=== PATIENT | male | born 1965 | race Caucasian/White ===

== ENCOUNTER → 2017-03-07 | Outpatient (CLI) | payer MEDICARE, OTHER ==
[~2017-03-07] MED LIST: AMITRIPTYLINE25 MG PO; ANTIBIOTIC O500 U/GM TP; ASPIRIN325 MG PO; BUPROPION HCL150 M2 PO; CLONAZEPAM0.5 MG PO; DAYPRO600 M1 PO; DOC-Q-LACE100 MG PO; FLEXERIL5 MG PO; FOLIC ACID1 MG PO; KEFLEX500 MG PO; LIPITOR20 MG PO; LYRICA300 MG PO; MEDROL DOSEPAK4 MG PO; MELOXICAM7.5 MG PO; METFORMIN HCL1000 MG PO; MOTRIN800 MG PO; NORFLEX100 MG PO; PANTOPRAZOLE SO40 MG PO; QUETIAPINE FUMA25 M2 PO; TESTIM1%; Tobradex 0.3-0.15 ML OPH; VICODIN; VICODIN 5/500 505 MG PO; VICODIN ES 7501 TAB PO; VITAMIN D3; [UNRECOGNIZED DRUG - OTHER] PO; [UNRECOGNIZED DRUG - REMARK]
[2017-03-07 10:36] LABS: EST GLOM FILT AFRICAN AMERICAN > 60 ml/min
== END | disposition home or self-care (01) ==
LOC: MRI 09:40
PROVIDERS: Radiology Diagnostic Radiology
DX: M51.16 Intervertebral disc disorders with radiculopathy, lumbar region (principal); M51.26 Other intervertebral disc displacement, lumbar region; M48.06 Spinal stenosis, lumbar region; M48.54XA Collapsed vertebra, not elsewhere classified, thoracic region, initial encounter for fracture

== ENCOUNTER → 2017-03-20 | Outpatient (CLI) | payer MEDICARE, OTHER | END | disposition home or self-care (01) | LOC: MRI 01:11 | DX: M48.02 Spinal stenosis, cervical region (principal); M50.31 Other cervical disc degeneration, high cervical region; G95.89 Other specified diseases of spinal cord; M51.44 Schmorl's nodes, thoracic region; M12.88 Other specific arthropathies, not elsewhere classified, other specified site; M25.78 Osteophyte, vertebrae; R60.9 Edema, unspecified; G95.19 Other vascular myelopathies; R20.0 Anesthesia of skin; Z98.1 Arthrodesis status ==

== ENCOUNTER → 2017-04-04 | Outpatient (CLI) | payer MEDICARE, OTHER ==
--- NOTE | ~2017-04-04 | WRIGHTHP ---
[place], [place] PATIENT HISTORY AND PHYSICAL EXAM NAME: SHI CAMPOS [facility] #: [id number] UNIT #: [id number] ROOM: DOCTOR: VINCENZO HernadezWILLIE BIRTHDATE: [birth year] DOS: 04/04/2017 This is a new patient evaluation. CHIEF COMPLAINT: A blistered area of the right great toe. HISTORY OF PRESENT ILLNESS: The patient is a 51-year-old diabetic who comes in for a wound of his right great toe that he has for approximately 3 days now. He said it initially started out as a blister and a lot of it broke open on its own after wearing new shoes. He said he got new diabetic shoes and the ulcer was noted right after wearing those. He is just using a dry drainage. He is not complaining of any purulence or any fevers or chills or any odor with the wound. PAST MEDICAL HISTORY: Significant for sleep apnea, history of hypertension, history of type 2 diabetes. He has not checked his sugars for some time now as he ran out of test strips. He has bilateral hip replacements, chronic back pain, has had back surgery. He has a history of depression and has a history of an abnormal chest x-ray from 1997. He wears a CPAP machine. PAST SURGICAL HISTORY: Neck surgery and back surgery and he had infection from ____ injections. FAMILY HISTORY: Significant for diabetes, hypertension and heart disease. SOCIAL HISTORY: He is a current everyday smoker, a quarter of a pack per day. Rarely drinks alcohol. He is , drinks coffee on a daily basis. No drug use is noted. ALLERGIES: TRAMADOL AND SULFA. MEDICATIONS: As follows: The recent medication list is going to be obtained from the pharmacy, but his last. medications that we have charted are back from 2014 and he was on Curly aspirin 325 daily, clonazepam 0.5 daily, Lyrica 300 daily, metformin 1000 daily, Lipitor 20 daily, quetiapine 25 p.o. daily, methenamine 1 gram p.o. daily, folic acid 1 mg p.o. daily, Colace 100 daily, Wellbutrin-XL 150 daily, meloxicam 7.5 daily, pantoprazole 40 daily, amitriptyline 25 daily and vitamin D3 5000 units daily. Once again these are from 2015, but updated list is going to be obtained. REVIEW OF SYSTEMS: He has no fevers, chills, chest pains, nausea, vomiting, abdominal pains or diarrhea. He denies any urinary complaints. He does state that he has had some unintentional weight loss, approximately 5-10 pounds, he is not sure. He has changed his diet in any way that he is aware of. [place], [place] PATIENT HISTORY AND PHYSICAL EX[id number] UN[facility] #: [id number] ROOM: DOCTOR: WILLIE LYOA M.D. BIRTHDATE: [birth year] PHYSICAL EXAMINATION: VITAL SIGNS: He is afebrile, pulse is 74, respirations 18, blood pressure is 132/90. GENERAL: This is a male who appears slightly older than his stated age, somewhat flat affect, in no acute distress, pleasant and cooperative.. HEENT: Oropharynx is clear. Extraocular movements are intact. Sclerae are anicteric. NECK: There is no JVD. LUNGS: Clear. CARDIOVASCULAR: S1, S2. Regular rate and rhythm. ABDOMEN: Soft and nontender. EXTREMITIES: He has no edema. He has positive pedal pulses bilaterally. Good capillary refill. He has poor hair growth noted; however. He has absent peripheral sensation on monofilament testing. His PHIL was 1.16 on the left, 1.17 on the right. He has a wound on his right great toe that is essentially denuded skin. There is a lot of nonviable epidermis hanging there on the edges of the periphery of the wound as well and it is currently measuring 5.5 x 6 x 0.1. The base of the wound looks clean; however, there is a fair amount of devitalized epidermis hanging on the periphery of the wound. This was debrided selectively to remove just nonviable tissue, approximately 40% of the wound was debrided. Forceps and scissors were used to cut away the devitalized epidermis. There was no bleeding. Cetacaine spray was used for topical anesthesia. Timeout was conducted prior to start of the procedure. Post-debridement measurements are follow, 5.5 x 6.5 x 0.1. He has no recent blood work in the computer. ASSESSMENT AND PLAN: A blistered area of the right great toe in a diabetic patient that is secondary to ill-fitting shoes. It is fairly acute wound. At this point, we will go ahead and use ____, keep it clean and Versatile as a contact laver, have them changed on a daily basis. He is to follow up with us in 1 week. I would encourage him to have a new pair of shoes to be made if possible and to be evaluated by an slat basket maker helper, so we will go ahead and schedule the slat basket maker helper to come and see him while he is here. He says he has trouble getting to their place and it would be easier for him if they come here during his next wound care visit, so we will do that. He does have a foot drop and brace for his right lower extremity. The only post-shoes that we have available were either small or large and they do not appear that they will fit him very well, so he is going to be going back to his old shoes instead of the new diabetic shoes that he has. We will have him follow up in 1 week. I did state that we should try to get blood work if possible, blood work has been ordered and I would like to check his hemoglobin A1c and see what his baseline is. In addition, he has run out of his strips. He does not know what his sugar it. He has had complaints of some weight loss. This definitely needs to be addressed per primary care physician. I did explain to him that unintentional weight loss needs to be addressed by the primary care and that he should make an appointment to see him. Follow up in wound care in one week. [place], [place] PATIENT HISTORY AND PHYSICAL EXAM [facility]: [facility]AMPOS [facility] [id number] UNIT #: [id number] ROOM: DOCTOR: WILLIE LOYA M.D. BIRTHDATE: [birth year] WILLIE LOYA MD CM:HISPHYS:PATIENT HISTORY AND PHYSICAL EXAMINATION [phone] WILLIE LOYA M.D. 04/04/17 133 interface
--- NOTE | ~2017-04-04 | WRIGHTHP ---
[place], [place] PATIENT HISTORY AND PHYSICAL EXAM NAME: SHI CAMPOS UNIT #: [id number] ROOM: DOCTOR: WILLIE LOYA M.D. BIRTHDATE: [birth year] DOS: 04/04/2017 ADDENDUM: I did go ahead and order an arterial Doppler for him. Due to his history of diabetes and smoking that will be ordered. WILLIE LOYA MD CM:HISPHYS:PATIENT HISTORY AND PHYSICAL EXAMINATION [id number] WILLIE LOYA M.D. 04/04/17 1509 interface
[2017-04-04 10:25] LABS: HEMATOCRIT 42.5 % (42.0-52.0); HEMOGLOBIN 13.9 g/dl (14.0-18.0); MEAN CELL VOLUME 84.7 fl (80.0-94.0); MEAN CORPUSCULAR HGB 27.7 pg (27.0-31.0); MEAN CORPUSCULAR HGB CONC 32.7 g/dl (33.0-37.0); PLATELET COUNT AUTOMATED 115 10*3/uL (130-400); RED BLOOD COUNT 5.02 10*6/uL (4.50-5.90); WHITE BLOOD COUNT 7.9 10*3/uL (4.8-10.8)
[2017-04-04 10:43] LABS: EOSINOPHIL # 0.1 10*3/uL (0-0.4); EOSINOPHILS 1 % (1-4); LYMPHOCYTE # 1.6 10*3/uL (1.3-4.4); MONOCYTE # 0.6 10*3/uL (0.1-1.0); NEUTROPHIL # 5.6 10*3/uL (2.3-7.9); NEUTROPHILS 71 % (47-73); PLATELET SUFFICIENCY LOW (NORMAL); TOTAL CELLS COUNTED 100 #CELLS
[2017-04-04 10:54] LABS: ALBUMIN 3.7 gm/dl (3.1-4.5); ALKALINE PHOSPHATASE 57 U/L (45-117); BILIRUBIN, TOTAL 0.5 mg/dl (0.2-1.0); BUN 12 mg/dl (7-24); CARBON DIOXIDE 31 mmol/L (21-32); CHLORIDE 103 mmol/L (98-107); EST GLOM FILT AFRICAN AMERICAN > 60 ml/min; GLUCOSE 77 mg/dL (65-99); POTASSIUM 3.8 mmol/L (3.5-5.1); SGOT/AST 18 IU/L (3-35); SGPT/ALT 16 U/L (12-78); SODIUM 143 mmol/L (136-145); T3 UPTAKE 40 % (31-39); THYROXINE (T4) TOTAL 8.5 ug/dl (4.5-12.1)
[2017-04-04 11:05] LABS: THYROID STIM HORMONE (HS) 0.774 uIU/ml (0.358-4.75)
[2017-04-05 07:07] LABS: FREE T3 010389 3.4 pg/mL (2.0-4.4)
== END | disposition home or self-care (01) ==
LOC: WOUNDCARE 07:14 → LAB 07:14
PROVIDERS: Specialist
DX: S90.421A Blister (nonthermal), right great toe, initial encounter (principal); S91.101A Unspecified open wound of right great toe without damage to nail, initial encounter; I10 Essential (primary) hypertension; E11.9 Type 2 diabetes mellitus without complications; I51.9 Heart disease, unspecified; E29.1 Testicular hypofunction; F17.200 Nicotine dependence, unspecified, uncomplicated; X58.XXXA Exposure to other specified factors, initial encounter; Y93.89 Activity, other specified; Y92.89 Other specified places as the place of occurrence of the external cause; Y99.8 Other external cause status

== ENCOUNTER → 2017-04-12 | Outpatient (CLI) | payer MEDICARE, OTHER ==
--- NOTE | ~2017-04-12 | PR ---
[place], [place] PROGRESS NOTE NAME: SHI CAMPOS [facility] #: [id number] UNIT #: [id number] ROOM: DOCTOR: VINCENZO HernadezWILLIE BIRTHDATE: [birth year] DOS: 04/12/2017 SUBJECTIVE: The patient comes in for followup of ulcer of the right great toe. He was seen last week for the first time where he had essentially a lot of epithelial tissue that was devitalized from the blister that had broken and this occurred because of ill-fitting footwear and he was recommended to use TheraHoney, however, they could not afford TheraHoney and they used Silvadene at home, that is what they had. So, he said that he has been using Silvadene, but initially they did use a little bit of TheraHoney that was left and he said he liked this better. He says overall, he thinks is doing better. He has no specific complaints. We had had him meet with the software quality tester for diabetic shoes today. So, hopefully that will get taken care of soon. In addition, he had gone back to his old footwear. He does have a foot drop and has to use a brace. So, he is not able to wear our open toe postop shoes because he cannot put the brace in for this to fit while he is ambulating. He offers no other specific complaints. OBJECTIVE: VITAL SIGNS: Stable. Temperature is 98.3, pulse of 74, respirations 16, blood pressure is 140/68. WOUND EXAMINATION: The wounded area is measuring smaller at 4.5 x 5 x 0.1 and within those measurements are large amounts of epithelial tissue. There are still some open areas scattered throughout, but it does look better. Overall, there is no sign of infection. On the webspace between the first and second toe, has an open area as well, which is included in those measurements. There is some devitalized tissue on the periphery of the wound. So selective debridement was done to remove devitalized tissue with forceps and scissors. There was no bleeding. The patient tolerated the debridement well. LABORATORY DATA: He did have lab work done last week, his white count was 7.9, hemoglobin was 13.9, hematocrit of 42.5. His Chem-7 is good. His BUN is 12, creatinine 0.99. LFTs are normal. He had other blood work done that was not ordered by me that included PSA, TSH, and testosterone levels. ASSESSMENT AND PLAN: Diabetic wound of the right great toe secondary to poorly fitting footwear. The wound appears stable and is improving. He cannot afford the TheraHoney, so we will just continue with Silvadene for now. It was a little bit on the moist side, so I would like him to just instead of using Adaptic or Versatel with it, just to use Silvadene, 4 x 4s and tape and have him follow up in 1 week. I did explain that I think when he is at home, he should wear socks, but not wear his shoes. [place], [place] PROGRESS NOTE NAME: ANDRESSHI E UNIT #: [id number] ROOM: DOCTOR: WILLIE LOYA M.D. BIRTHDATE: [birth year] WILLIE LOYA MD CM:RAMON [phone] WILLIE LOYA M.D. 04/12/17 1316 interface
== END ==
LOC: WOUNDCARE 00:23
DX: E11.621 Type 2 diabetes mellitus with foot ulcer (principal); L97.511 Non-pressure chronic ulcer of other part of right foot limited to breakdown of skin

== ENCOUNTER → 2017-04-23 | Outpatient (CLI) | payer MEDICARE, OTHER ==
--- NOTE | ~2017-04-23 | PR ---
[place], [place] PROGRESS NOTE NAME: SHI CAMPOS [facility] #: [id number] UNIT #: [id number] ROOM: DOCTOR: VINCENZO Hernadez,WILLIE BIRTHDATE: [birth year] DOS: 04/23/2017 CHIEF COMPLAINT: Followup of an ulcer of the right great toe. This started out as a blister secondary to ill-fitting footwear. He has been coming to the [facility] for 2 weeks now. He has met with the senior sales consultant for possibly getting new diabetic shoes. He has been using Silvadene to the wound initially because that was what he could afford and what he had available at home. He comes in today without any new specific complaints. He still has an open area in the webspace between the first and second toe on the right foot. It is not causing any significant amount of pain. No fevers or chills and no change in drainage. OBJECTIVE: VITAL SIGNS: Stable. Temperature 98.8, pulse 76, respirations 18, blood pressure is 158/70. The wound is measuring 0.6 x 0.4 x 0.1. A lot of the other blistered area of the toe is all healed. This is the only part that still open and it is right into the webspace. There was some of devitalized tissue around the periphery of the wound. Minimal fibrin slough at the base of the wound. Selective debridement was done just to remove some of the devitalized tissue as well as fibrin slough, biofilm with a curette, forceps, and scissors. The patient tolerated the debridement well. Post-debridement measurements are unchanged except for depth of 0.15. ASSESSMENT AND PLAN: Continued ulceration of the right great toe secondary to friction between the first and second digits. We will use a different dressing, try a collagen silver, this should last him until he comes back next week, a small dressing 2 x 2 and then toe netting over that and see if that will help keep the toes . There is no sign of an acute infection. Follow up in one week. WILLIE LOYA MD CM:PNTRANS [phone] WILLIE LOYA M.D. 04/23/17 1448 interface
== END ==
LOC: WOUNDCARE 02:35
DX: E11.621 Type 2 diabetes mellitus with foot ulcer (principal); L97.511 Non-pressure chronic ulcer of other part of right foot limited to breakdown of skin

== ENCOUNTER → 2017-05-07 | Outpatient (CLI) | payer MEDICARE, OTHER | LOC: WOUNDCARE 02:15 | DX: E11.621 Type 2 diabetes mellitus with foot ulcer (principal); L97.511 Non-pressure chronic ulcer of other part of right foot limited to breakdown of skin ==

== ENCOUNTER → 2017-05-15 | Outpatient (CLI) | payer MEDICARE, OTHER | LOC: WOUNDCARE 04:16 | DX: E11.621 Type 2 diabetes mellitus with foot ulcer (principal); L97.511 Non-pressure chronic ulcer of other part of right foot limited to breakdown of skin; F17.200 Nicotine dependence, unspecified, uncomplicated ==

== ENCOUNTER → 2017-05-29 | Outpatient (CLI) | payer MEDICARE, OTHER ==
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
== END ==
LOC: WOUNDCARE 02:27
DX: T21.65XA Corrosion of second degree of buttock, initial encounter (principal); E11.621 Type 2 diabetes mellitus with foot ulcer; L97.501 Non-pressure chronic ulcer of other part of unspecified foot limited to breakdown of skin; F17.200 Nicotine dependence, unspecified, uncomplicated; Z72.89 Other problems related to lifestyle; T65.891A Toxic effect of other specified substances, accidental (unintentional), initial encounter; Y92.89 Other specified places as the place of occurrence of the external cause

== ENCOUNTER → 2017-06-11 | Outpatient (CLI) | payer MEDICARE, OTHER ==
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
== END | disposition home or self-care (01) ==
LOC: WOUNDCARE 01:17
DX: T21.6 Corrosion of second degree of trunk (principal); E11.622 Type 2 diabetes mellitus with other skin ulcer; L98.491 Non-pressure chronic ulcer of skin of other sites limited to breakdown of skin; L89.152 Pressure ulcer of sacral region, stage 2; X08.8XXD Exposure to other specified smoke, fire and flames, subsequent encounter

== ENCOUNTER → 2017-06-18 | Outpatient (CLI) | payer MEDICARE, OTHER ==
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
== END | disposition home or self-care (01) ==
LOC: WOUNDCARE 00:56
DX: T21.4 Corrosion of unspecified degree of trunk (principal); T32.0 Corrosions involving less than 10% of body surface; E11.622 Type 2 diabetes mellitus with other skin ulcer; L89.152 Pressure ulcer of sacral region, stage 2; L98.491 Non-pressure chronic ulcer of skin of other sites limited to breakdown of skin; X08.8XXD Exposure to other specified smoke, fire and flames, subsequent encounter

== ENCOUNTER → 2017-06-28 | Outpatient (CLI) | payer MEDICARE, OTHER ==
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
== END | disposition home or self-care (01) ==
LOC: WOUNDCARE 00:23
DX: E11.622 Type 2 diabetes mellitus with other skin ulcer (principal); L98.491 Non-pressure chronic ulcer of skin of other sites limited to breakdown of skin; L89.153 Pressure ulcer of sacral region, stage 3; T21.6 Corrosion of second degree of trunk; T31.0 Burns involving less than 10% of body surface; X08.8XXD Exposure to other specified smoke, fire and flames, subsequent encounter

== ENCOUNTER → 2017-07-23 | Outpatient (CLI) | payer MEDICARE | END | disposition home or self-care (01) | LOC: WOUNDCARE 03:03 | DX: L89.152 Pressure ulcer of sacral region, stage 2 (principal) ==

== ENCOUNTER → 2017-07-30 | Outpatient (CLI) | payer MEDICARE | END | disposition home or self-care (01) | LOC: WOUNDCARE 03:24 | DX: L89.152 Pressure ulcer of sacral region, stage 2 (principal) ==

== ENCOUNTER → 2017-08-06 | Outpatient (CLI) | payer MEDICARE | END | disposition home or self-care (01) | LOC: WOUNDCARE 01:32 | DX: L89.152 Pressure ulcer of sacral region, stage 2 (principal) ==

== ENCOUNTER → 2017-08-23 | Outpatient (CLI) | payer MEDICARE, MEDICAID ==
[2017-08-23 09:26] LABS: BILIRUBIN 2+ (NEGATIVE); BLOOD NEGATIVE (NEGATIVE); CLARITY CLEAR (CLEAR); COLOR YELLOW (YELLOW); GLUCOSE NEGATIVE (NEGATIVE); KETONE 3+ (NEGATIVE); LEUKO ESTERASE TRACE (NEGATIVE); NITRITE NEGATIVE (NEGATIVE); SPECIFIC GRAVITY 1.025 (1.005-1.030)
[2017-08-23 09:29] LABS: BASO % 0.3 % (0.0-1.0); EOS # 0.1 10*3/uL (0.0-0.4); EOS % 1.3 % (1.0-4.0); HEMATOCRIT 46.8 % (42.0-52.0); HEMOGLOBIN 16.1 g/dl (14.0-18.0); LYMPH # 2.4 10*3/uL (1.3-4.4); LYMPH % 29.4 % (27.0-41.0); MEAN CELL VOLUME 84.2 fl (80.0-94.0); MEAN CORPUSCULAR HGB CONC 34.4 g/dl (33.0-37.0); MEAN PLATELET VOLUME 14.2 fl (9.6-12.3); MONO # 0.7 10*3/uL (0.1-1.0); MONO % 9.3 % (3.0-9.0); NEUT # 4.8 10*3/uL (2.3-7.9); NEUT % 59.4 % (47.0-73.0); PLATELET COUNT AUTOMATED 114 10*3/uL (130-400); RED BLOOD COUNT 5.56 10*6/uL (4.50-5.90); RED CELL DISTRI WIDTH 14.5 % (0-14.5)
[2017-08-23 09:41] LABS: ALBUMIN 4.2 gm/dl (3.1-4.5); BUN 12 mg/dl (7-24); CHLORIDE 101 mmol/L (98-107); CREATININE 1.19 mg/dL (0.70-1.30); PHOSPHOROUS 1.8 mg/dL (2.5-4.9); POTASSIUM 3.8 mmol/L (3.5-5.1); SODIUM 140 mmol/L (136-145)
[2017-08-23 11:11] LABS: WBC 21-30 wbc/hpf (0-5)
[2017-08-23 11:12] LABS: BACTERIA 2+
== END | disposition home or self-care (01) ==
LOC: WOUNDCARE 00:52 → LAB 00:52 → WOUNDCARE 13:31
PROVIDERS: Internal Medicine Nephrology
DX: N17.9 Acute kidney failure, unspecified (principal); E11.9 Type 2 diabetes mellitus without complications; Z79.899 Other long term (current) drug therapy

== ENCOUNTER → 2017-08-28 | Outpatient (CLI) | payer MEDICARE, MEDICAID | END | disposition home or self-care (01) | LOC: WOUNDCARE 02:33 | DX: L89.152 Pressure ulcer of sacral region, stage 2 (principal) ==

== ENCOUNTER 2017-09-14 00:58 | Inpatient (IN) | payer MEDICARE, MEDICAID ==
[~2017-09-14] VITALS: Ht 180.3 cm; Wt 81.6 kg
[2017-09-14] VITALS (7 sets, daily range): BP systolic 97–163; BP diastolic 50–93
--- NOTE | ~2017-09-14 | CON ---
[place], [place] REPORT OF CONSULTATION NAME: SHI CAMPOS UNIT #: [id number] ROOM: 525 DOCTOR: Satya MUNOZ,JOHNNY BIRTHDATE: [birth year] DOS: 09/15/2017 REASON FOR CONSULTATION: Drug overdose. HISTORY OF PRESENT ILLNESS: The patient was seen, chart reviewed, spoke with the nursing staff and also spoke with his , [place] at phone #[phone]. The patient is a 52-year-old white male with multiple medical issues, who was presented in the Emergency Department via EMS after they were called as the patient was found unresponsive by the family. When EMS arrived at residence, the patient was awake, but was confused. He told the EMS that he took more medication than he is supposed to. The patient got admitted to the medical floor for further care and stabilization. The patient was pleasant and cooperative during the interview. He was sitting on the chair by the window in his room. He said that he was not sleeping well for the last couple of nights and he probably took more pain medication than he was supposed to. He said that he dozed off a little bit, but not able to recall the events of the unconsciousness. He mentioned that when he woke up, he saw the EMS. The patient vehemently denied that to be a suicide attempt. He said that he was feeling tired and he was trying to help his ____ was not sleeping well and took more medication than he was supposed to. The patient reports being depressed and down. He feels sad, but denied any hopelessness. He feels helpless because he had to take care of his son who has some mental health issues and also he is dealing with his own physical issues. He denied any crying spells, denied any problem with his appetite. He denied any symptoms of psychosis, jasmyn or hypomania. The patient's biggest stress is his son and his physical issues. 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 He mentioned that sometimes he feels frustrated and upset because of that. He denied any symptoms of psychosis, jasmyn or hypomania. I spoke with his , America at [phone]. She said that the unconsciousness was not an intentional overdose situation. She also does not think that it was a suicide attempt. She denied having any gun at home and she does not have any concern if the patient gets discharged to home after being stabilized in the medical floor. PAST MEDICAL HISTORY: Significant for spinal stenosis, degenerative disk disease, diabetes mellitus, edema of the spinal cord, hyperlipidemia, hypertension, neuropathy, normocytic anemia, peripheral vascular disease, postoperative back pain, sciatic thrombocytopenia. PAST PSYCHIATRIC HISTORY: The patient denied any prior psychiatric hospitalization, denied prior suicide attempt. No suicide in the family. Denied having any gun at home. He is currently on multiple psych medications, which include Wellbutrin 150 mg, Cymbalta 30 mg, clonazepam 0.5 mg and Seroquel 50 mg at night. He mentioned that he is getting that from his primary care [place], [place] REPORT OF CONSULTATION NAME: SHI CAMPOS UNIT #: [id number] ROOM: [facility] DOCTOR: Satya MUNOZ MAHBOOB BIRTHDATE: [birth year] physician. SOCIAL HISTORY: He was born and raised in [place], [place]. 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 He was once for the past 26 years. He has 2 kids. He lives with his . He denies any history of physical or sexual abuse. He gets disability. MENTAL STATUS EXAMINATION: The patient was pleasant and cooperative, described his mood as "okay." Affect, mood congruent. Thought process goal directed. No flight of ideas, loosening of association. He denied auditory or visual hallucination. No delusion or paranoia noted. He vehemently denied any suicidal ideation, intent or plan. He also denied any homicidal ideation, intent or plan. Insight and judgment fair. Cognition intact. ASSESSMENT: Major depressive disorder, not otherwise specified. PLAN: 1. Continue current medication and care. 2. The patient needs a psychiatric followup appointment on discharge. 3. We will sign off on this case. If there is any question and concern, please give us a call. JOHNNY MUNOZ MD CM:CONSTR:REPORT OF CONSULTATION 1220 09/15/17 1320 interface
[~2017-09-14 00:58] MED LIST changes: +CLONAZEPAM0.5 M2 PO; -CLONAZEPAM0.5 MG PO; -FOLIC ACID1 MG PO; +NATURE'S BLEND F1 MG PO
--- NOTE | 2017-09-14 01:32 | NUR ---
MD SPOKE WITH PT AND REPORTS FAMILY DID NOT DO CPR ON PATIENT.
[2017-09-14 01:36] LABS: BILIRUBIN NEGATIVE (NEGATIVE); BLOOD NEGATIVE (NEGATIVE); CLARITY CLEAR (CLEAR); COLOR YELLOW (YELLOW); GLUCOSE NEGATIVE (NEGATIVE); KETONE TRACE (NEGATIVE); LEUKO ESTERASE NEGATIVE (NEGATIVE); NITRITE NEGATIVE (NEGATIVE); SPECIFIC GRAVITY 1.025 (1.005-1.030); UROBILINOGEN 0.2 E.U./dl (0.2-1.0)
[2017-09-14 01:36] LABS: BASO % 0.2 % (0.0-1.0); EOS # 0.1 10*3/uL (0.0-0.4); EOS % 0.7 % (1.0-4.0); HEMATOCRIT 44.2 % (42.0-52.0); HEMOGLOBIN 14.8 g/dl (14.0-18.0); LYMPH # 2.2 10*3/uL (1.3-4.4); LYMPH % 16.1 % (27.0-41.0); MEAN CELL VOLUME 86.5 fl (80.0-94.0); MEAN CORPUSCULAR HGB CONC 33.5 g/dl (33.0-37.0); MEAN PLATELET VOLUME 14.1 fl (9.6-12.3); MONO # 0.9 10*3/uL (0.1-1.0); MONO % 6.4 % (3.0-9.0); NEUT # 10.5 10*3/uL (2.3-7.9); NEUT % 76.2 % (47.0-73.0); PLATELET COUNT AUTOMATED 116 10*3/uL (130-400); RED BLOOD COUNT 5.11 10*6/uL (4.50-5.90); RED CELL DISTRI WIDTH 14.9 % (0-14.5); WHITE BLOOD COUNT 13.8 10*3/uL (4.8-10.8)
[2017-09-14 01:41] LABS: URINE AMPHETAMINES < 1000 (1000ng/ml); URINE BARBITURATES < 200 (200ng/ml); URINE BENZODIAZEPINES < 200 (200ng/ml); URINE CANNABINOIDS (THC) > 50 (50ng/ml); URINE COCAINE < 300 (300ng/ml); URINE METHADONE < 300 (300ng/ml); URINE OPIATES < 300 (300ng/ml)
[2017-09-14 01:42] LABS: URINE PHENCYCLIDINE < 25 (25ng/ml)
[2017-09-14 01:43] LABS: HYALINE CAST 15-20
[2017-09-14 01:51] LABS: ALBUMIN 4.1 gm/dl (3.1-4.5); ALKALINE PHOSPHATASE 78 U/L (45-117); BUN 24 mg/dl (7-24); CHLORIDE 108 mmol/L (98-107); POTASSIUM 4.8 mmol/L (3.5-5.1); SGOT/AST 18 IU/L (3-35); SGPT/ALT 28 U/L (12-78); SODIUM 141 mmol/L (136-145); TOTAL PROTEIN 7.6 gm/dL (6.4-8.2)
[2017-09-14 02:02] LABS: ETHYL ALCOHOL < 3.0 mg/dl (<3); TROPONIN I < 0.015 ng/ml (<0.045)
[2017-09-14 02:03] LABS: ACETAMINOPHEN (TYLENOL) < 2.0 ug/ml (10-30)
--- NOTE | 2017-09-14 02:14 | NUR ---
#20GAUGE IV PT LAC, NOT PATENT,IV REMOVED INTACT AND PRESSURE DRESSING APPLIED.
[2017-09-14] MEDS ORDERED: VOLTAREN100 GM T (02:18)
[2017-09-14] MEDS ORDERED: DURAGESIC1 EAC2 TD (02:20)
[2017-09-14] MEDS ORDERED: TESTOSTERO200 MG/1 M IM (02:24)
[2017-09-14] MEDS ORDERED: XYLOCAINE 5%35.44 GM T (02:27)
[2017-09-14] MEDS ORDERED: CYMBALTA30 MG PO (02:28)
--- NOTE | 2017-09-14 02:46 | NUR ---
ORALIA CONTACT # [phone] MOTHER [phone]
--- NOTE | 2017-09-14 03:05 | NUR ---
A 52, admitted to ICCU, under the services of SHANTELL Yañez DO with a diagnosis of ARF DRUG OVERDOSE . Chief complaint is LOC PER FAMILY. Patient arrived via ambulance from ER. Monitor applied. Initial assessment completed. Vital signs taken and recorded. SHANTELL YAÑEZ DO notified of admission to the unit. Orders received. See assessment for past medical history, medications and allergies. Patient and/or family oriented to unit. [facility] ICCU visitation policy reviewed. Clothing/patient valuable form completed. GARY POWER
[2017-09-14] MEDS ORDERED: VITAMIN D5000 UNIT PO (03:16)
[2017-09-14] MEDS ORDERED: LISINOPRIL5 MG PO (03:18)
--- NOTE | 2017-09-14 04:09 | NUR ---
DR WETZEL AT BEDSIDE AND WAS MADE AWARE AND VIEWED PT'S COCCYX WOUND.
[2017-09-14 04:45] LABS: BASO % 0.2 % (0.0-1.0); EOS % 0.2 % (1.0-4.0); HEMATOCRIT 40.6 % (42.0-52.0); HEMOGLOBIN 13.4 g/dl (14.0-18.0); LYMPH # 1.7 10*3/uL (1.3-4.4); MEAN CELL VOLUME 85.8 fl (80.0-94.0); MEAN CORPUSCULAR HGB 28.3 pg (27.0-31.0); MEAN PLATELET VOLUME 13.9 fl (9.6-12.3); MONO # 0.8 10*3/uL (0.1-1.0); MONO % 6.2 % (3.0-9.0); NEUT # 10.2 10*3/uL (2.3-7.9); NEUT % 80.1 % (47.0-73.0); PLATELET COUNT AUTOMATED 98 10*3/uL (130-400); RED BLOOD COUNT 4.73 10*6/uL (4.50-5.90); RED CELL DISTRI WIDTH 14.9 % (0-14.5); WHITE BLOOD COUNT 12.7 10*3/uL (4.8-10.8)
[2017-09-14 04:56] LABS: ACT PARTIAL THROMBO TIME 25.9 SECONDS (20.8-31.5); INTERNATIONAL NORM RATIO 0.9 (2.0-3.5)
[2017-09-14 05:04] LABS: ALBUMIN 3.8 gm/dl (3.1-4.5); CREATININE 1.56 mg/dL (0.70-1.30); FREE T4 1.31 ng/dl (0.76-1.46); PHOSPHOROUS 5.3 mg/dL (2.5-4.9); POTASSIUM 5.1 mmol/L (3.5-5.1); TOTAL PROTEIN 6.9 gm/dL (6.4-8.2)
--- NOTE | 2017-09-14 05:23 | NUR ---
PT'S DURAGESIC PATCH TAKEN OFF AND DISCARDED.
[2017-09-14 07:37] LABS: THYROID STIM HORMONE (HS) 2.5 uIU/ml (0.358-4.75)
--- NOTE | 2017-09-14 08:00 | NUR ---
DR CADET MADE AWARE OF NEW CONSULT ORDER. STATED HE IS ALREADY GONE FOR THE DAY AND THAT DR MUNOZ WILL BE SEEING PT'S TOMORROW.
--- NOTE | 2017-09-14 08:06 | NUR ---
DR SMITH MADE AWARE OF CONSULT ORDER. STATED HE KNOWS THIS PT FROM THE WOUND CLINIC AND WILL SEE HIM TODAY.
--- NOTE | 2017-09-14 08:11 | NUR ---
DR Tato FENG MADE AWARE OF NEW CONSULT ORDER AND WILL SEE PT TODAY.
[2017-09-14 08:13] LABS: VITAMIN D, 25-HYDROXY 41.9 ng/mL (30-100)
--- NOTE | 2017-09-14 08:24 | NUR ---
DR FENG MADE AWARE THAT HE IS NOT NEEDED FOR CONSULT AND THAT IT IS FOR DR CADET FOR MED MANAGEMENT.
--- NOTE | 2017-09-14 09:00 | NUR ---
DR CADET MADE AWARE OF NEW CONSULT ORDER. STATED THAT HE HAS ALREADY LEFT THE BUILDING FOR TODAY AND THAT DR MUNOZ CAN SEE THE PT TOMORROW.
--- NOTE | 2017-09-14 09:27 | NUR ---
PHYSICAL THERAPY PAtient respectfully declines PT services this date. Thank you for this referral. Lavonne Grace ,PT
--- NOTE | 2017-09-14 10:30 | NUR ---
SPEECH THERAPY IN TO EVALUATE PT.
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
--- NOTE | 2017-09-14 11:59 | NUR ---
PT MEDICATED WITH TYLENOL 650MG AT HIS REQUEST FOR BACK AND BUTTOCKS PAIN. ENCOURAGED PT TO TURN POSITIONS.
--- NOTE | 2017-09-14 16:12 | NUR ---
PT WANTING TO GO OUTSIDE FOR A CIGARETTE. I NOTIFIED DR HELTON WHO ORDERED NICOTROL INHALER.
--- NOTE | 2017-09-14 17:04 | NUR ---
DR SMITH IN TO SEE PT AND WOUND ORDERS RECEIVED.
--- NOTE | 2017-09-14 19:16 | NUR ---
24 HR chart check completed.
[2017-09-15] VITALS: BP 109/53
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
[2017-09-15 04:00] VITALS: BP 118/63
[2017-09-15 04:50] LABS: BASO % 0.4 % (0.0-1.0); EOS # 0.1 10*3/uL (0.0-0.4); EOS % 1.5 % (1.0-4.0); LYMPH # 1.3 10*3/uL (1.3-4.4); LYMPH % 19.8 % (27.0-41.0); MEAN CELL VOLUME 87.6 fl (80.0-94.0); MEAN CORPUSCULAR HGB CONC 33.1 g/dl (33.0-37.0); MEAN PLATELET VOLUME 13.2 fl (9.6-12.3); MONO # 0.5 10*3/uL (0.1-1.0); MONO % 6.9 % (3.0-9.0); NEUT # 4.8 10*3/uL (2.3-7.9); RED BLOOD COUNT 3.86 10*6/uL (4.50-5.90); WHITE BLOOD COUNT 6.8 10*3/uL (4.8-10.8)
[2017-09-15 04:54] LABS: HEMATOCRIT 33.8 % (42.0-52.0); HEMOGLOBIN 11.2 g/dl (14.0-18.0); PLATELET COUNT AUTOMATED 68 10*3/uL (130-400)
[2017-09-15 05:13] LABS: BUN 17 mg/dl (7-24); CHLORIDE 108 mmol/L (98-107); CREATININE 1.06 mg/dL (0.70-1.30); POTASSIUM 4.2 mmol/L (3.5-5.1); SODIUM 141 mmol/L (136-145)
--- NOTE | 2017-09-15 06:55 | NUR ---
PATIENT SITTING UP IN BED. PATIENT HAS A PRICE DRAINING PALE YELLOW URINE. PATIENT IS A&OX3 AND HAS BEEN PLEASANT AND COOPERATIVE UPON ASSESSMENT. PATIENT HAS A WOUND ON THE COCCYX THAT HAS BEEN PACKED AND COVERED. PATIENT DENIES ANY PAIN OR DISCOMFORT AT THIS TIME. CALL LIGHT WITHIN REACH. SEE ASSESSMENT.
[2017-09-15 08:00] VITALS: BP 115/55
--- NOTE | 2017-09-15 09:00 | NUR ---
U NOTIFIED OF CONSULT WITH DR. CADET.
--- NOTE | 2017-09-15 10:30 | NUR ---
REPORT CALLED TO 5E RN. TRANSFERRED TO ROOM 525 VIA CHAIR.
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
[2017-09-15 12:00] VITALS: BP 187/96
[2017-09-15 16:00] VITALS: BP 169/81
--- NOTE | 2017-09-15 19:05 | NUR ---
PT REQUESTED PAIN MEDICATION FOR LOWER BACK PAIN THAT RADIATES TO BILAT LEGS AND INTO THE THIGHS. PT RATES PAIN AT 8 OUT OF 10 AND DESCRIBES PAIN CONSTANT, THROBBING, BURNING, DULL, AND ACHING. TYLENOL GIVEN.
[2017-09-15 20:00] VITALS: BP 160/75
[2017-09-16] VITALS: BP 162/88
[2017-09-16 08:00] VITALS: BP 141/76
--- NOTE | 2017-09-16 08:38 | NUR ---
PT RESTING IN BED. NO DISTRESS NOTED. NO DISTRESS NOTED. PT STATES THAT "I DONT WANT BOTHERED RIGHT NOW '
[2017-09-16 12:00] VITALS: BP 130/64
[2017-09-16] MEDS ORDERED: DOXYCYCLINE100 M3 PO (14:45)
--- NOTE | 2017-09-16 15:02 | NUR ---
PT REFUSED TO HAVE DC PHOTOS TAKEN, STATES DRESSING WAS JUST DONE
--- NOTE | 2017-09-16 17:04 | NUR ---
DISCHARGED TO HOME IN CARE OF FAMILY. INSTRUCTIONS REVIEWED WITH PT.
== END 2017-09-16 16:55 | disposition home or self-care (01) | DRG 871 ==
LOC: ED 00:58 → EDHOLD 02:22 → ICCU 02:22 → 5E 09-15 10:33
PROVIDERS: Internal Medicine; Student in an Organized Health Care Education/Training Program; ADMIT Internal Medicine
DX: A41.9 Sepsis, unspecified organism (principal); G93.41 Metabolic encephalopathy; N17.0 Acute kidney failure with tubular necrosis; L89.152 Pressure ulcer of sacral region, stage 2; G95.19 Other vascular myelopathies; E87.2 Acidosis; E11.42 Type 2 diabetes mellitus with diabetic polyneuropathy; D69.6 Thrombocytopenia, unspecified; E87.8 Other disorders of electrolyte and fluid balance, not elsewhere classified; R65.20 Severe sepsis without septic shock; E11.51 Type 2 diabetes mellitus with diabetic peripheral angiopathy without gangrene; T50.901A Poisoning by unspecified drugs, medicaments and biological substances, accidental (unintentional), initial encounter; I10 Essential (primary) hypertension; F41.9 Anxiety disorder, unspecified; M54.30 Sciatica, unspecified side; E78.5 Hyperlipidemia, unspecified; F12.10 Cannabis abuse, uncomplicated; F32.9 Major depressive disorder, single episode, unspecified; F17.200 Nicotine dependence, unspecified, uncomplicated; R33.9 Retention of urine, unspecified; M48.00 Spinal stenosis, site unspecified; M51.36 Other intervertebral disc degeneration, lumbar region; E66.3 Overweight; E11.65 Type 2 diabetes mellitus with hyperglycemia; W19.XXXA Unspecified fall, initial encounter; D64.9 Anemia, unspecified; E83.39 Other disorders of phosphorus metabolism; E83.41 Hypermagnesemia; G89.29 Other chronic pain; Z79.899 Other long term (current) drug therapy; Z79.82 Long term (current) use of aspirin; Z71.6 Tobacco abuse counseling; Z88.2 Allergy status to sulfonamides; Z88.8 Allergy status to other drugs, medicaments and biological substances; Z72.89 Other problems related to lifestyle; Z78.9 Other specified health status; Z82.49 Family history of ischemic heart disease and other diseases of the circulatory system; Y93.89 Activity, other specified; Y99.8 Other external cause status; Y92.098 Other place in other non-institutional residence as the place of occurrence of the external cause; Z68.28 Body mass index [BMI] 28.0-28.9, adult; Z79.84 Long term (current) use of oral hypoglycemic drugs

== ENCOUNTER → 2017-10-09 | Outpatient (CLI) | payer MEDICARE, MEDICAID ==
[~2017-10-09] MED LIST changes: +CYMBALTA30 MG PO; +DOXYCYCLINE100 M3 PO; +DURAGESIC1 EAC2 TD; +LISINOPRIL5 MG PO; +TESTOSTERO200 MG/1 M IM; +VITAMIN D5000 UNIT PO; +VOLTAREN100 GM T; +XYLOCAINE 5%35.44 GM T
== END | disposition home or self-care (01) ==
LOC: WOUNDCARE 00:54
DX: L89.152 Pressure ulcer of sacral region, stage 2 (principal)

== ENCOUNTER → 2017-10-25 | Outpatient (CLI) | payer MEDICARE, MEDICAID | END | disposition home or self-care (01) | LOC: WOUNDCARE 01:15 | DX: L89.152 Pressure ulcer of sacral region, stage 2 (principal) ==

== ENCOUNTER → 2017-11-15 | Outpatient (CLI) | payer MEDICARE, MEDICAID | END | disposition home or self-care (01) | LOC: WOUNDCARE 01:43 | DX: L89.152 Pressure ulcer of sacral region, stage 2 (principal) ==

== ENCOUNTER → 2017-12-04 | Outpatient (CLI) | payer MEDICARE, MEDICAID | END | disposition home or self-care (01) | LOC: WOUNDCARE 00:43 | DX: L89.152 Pressure ulcer of sacral region, stage 2 (principal) ==

== ENCOUNTER → 2017-12-11 | Outpatient (CLI) | payer MEDICARE, MEDICAID | END | disposition home or self-care (01) | LOC: WOUNDCARE 03:26 | DX: T21.24XA Burn of second degree of lower back, initial encounter (principal); T31.0 Burns involving less than 10% of body surface; L89.152 Pressure ulcer of sacral region, stage 2; X08.8XXA Exposure to other specified smoke, fire and flames, initial encounter; Y93.89 Activity, other specified; Y92.89 Other specified places as the place of occurrence of the external cause; Y99.8 Other external cause status ==

== ENCOUNTER → 2017-12-20 | Outpatient (CLI) | payer MEDICARE, MEDICAID | END | disposition home or self-care (01) | LOC: WOUNDCARE 00:38 | DX: T21.24XD Burn of second degree of lower back, subsequent encounter (principal); T31.0 Burns involving less than 10% of body surface; L89.152 Pressure ulcer of sacral region, stage 2; X08.8XXD Exposure to other specified smoke, fire and flames, subsequent encounter ==

== ENCOUNTER → 2017-12-27 | Outpatient (CLI) | payer MEDICARE, MEDICAID | END | disposition home or self-care (01) | LOC: WOUNDCARE 03:38 | DX: L89.152 Pressure ulcer of sacral region, stage 2 (principal) ==

== ENCOUNTER → 2018-02-20 | Outpatient (CLI) | payer MEDICARE, MEDICAID ==
[2018-02-20 11:34] LABS: BASO % 0.2 % (0.0-1.0); BILIRUBIN 2+ (NEGATIVE); BLOOD NEGATIVE (NEGATIVE); CLARITY SL CLOUDY (CLEAR); COLOR YELLOW (YELLOW); EOS # 0.1 10*3/uL (0.0-0.4); EOS % 0.5 % (1.0-4.0); GLUCOSE NEGATIVE (NEGATIVE); HEMATOCRIT 46.6 % (42.0-52.0); HEMOGLOBIN 15.6 g/dl (14.0-18.0); KETONE 1+ (NEGATIVE); LEUKO ESTERASE TRACE (NEGATIVE); LYMPH # 2.4 10*3/uL (1.3-4.4); MEAN CELL VOLUME 84.4 fl (80.0-94.0); MEAN CORPUSCULAR HGB 28.3 pg (27.0-31.0); MEAN CORPUSCULAR HGB CONC 33.5 g/dl (33.0-37.0); MEAN PLATELET VOLUME 13.5 fl (9.6-12.3); MONO # 0.8 10*3/uL (0.1-1.0); MONO % 8.6 % (3.0-9.0); NEUT # 5.9 10*3/uL (2.3-7.9); NEUT % 64.4 % (47.0-73.0); NITRITE NEGATIVE (NEGATIVE); PH 6.5 (5.0-9.0); PLATELET COUNT AUTOMATED 157 10*3/uL (130-400); RED BLOOD COUNT 5.52 10*6/uL (4.50-5.90); RED CELL DISTRI WIDTH 14.6 % (0-14.5); SPECIFIC GRAVITY 1.025 (1.005-1.030); WHITE BLOOD COUNT 9.2 10*3/uL (4.8-10.8)
[2018-02-20 11:48] LABS: BACTERIA 2+; WBC 21-30 wbc/hpf (0-5)
[2018-02-20 11:56] LABS: ALBUMIN 4.2 gm/dl (3.1-4.5); BUN 11 mg/dl (7-24); CHLORIDE 105 mmol/L (98-107); CREATININE 1.37 mg/dL (0.70-1.30); PHOSPHOROUS 2.3 mg/dL (2.5-4.9); POTASSIUM 4.1 mmol/L (3.5-5.1); SODIUM 141 mmol/L (136-145)
== END | disposition home or self-care (01) ==
LOC: LAB 10:47
PROVIDERS: Internal Medicine Nephrology
DX: N17.9 Acute kidney failure, unspecified (principal); E11.9 Type 2 diabetes mellitus without complications; Z79.899 Other long term (current) drug therapy

== ENCOUNTER 2018-02-27 10:49 | Emergency (ER) | payer MEDICARE, MEDICAID ==
[~2018-02-27] VITALS: Ht 175.2 cm; Wt 69.9 kg
--- NOTE | ~2018-02-27 | EKG ---
[place], [place] ELECTROCARDIOGRAM REPORT NAME: SHI CAMPOS UNIT #: [id number] ROOM: DOCTOR: APARNA GUERRERO MD BIRTHDATE: [birth year] DOS: 02/27/2018 TIME: 1112 hours IMPRESSION: 1. Normal sinus rhythm at 65 beats per minute. 2. The tracing is normal. 3. No previous tracing is available for comparison. APARNA GUERRERO MD CM:EKGRPT:ELECTROCARDIOGRAM REPORT 0723 0913 APARNA GUERRERO MD
[2018-02-27 11:26] LABS: BASO % 0.3 % (0.0-1.0); EOS # 0.2 10*3/uL (0.0-0.4); HEMOGLOBIN 13.2 g/dl (14.0-18.0); LYMPH # 1.8 10*3/uL (1.3-4.4); LYMPH % 11.8 % (27.0-41.0); MEAN CELL VOLUME 88.2 fl (80.0-94.0); MEAN CORPUSCULAR HGB 28.4 pg (27.0-31.0); MEAN CORPUSCULAR HGB CONC 32.2 g/dl (33.0-37.0); MEAN PLATELET VOLUME 12.9 fl (9.6-12.3); MONO # 0.8 10*3/uL (0.1-1.0); MONO % 5.5 % (3.0-9.0); NEUT # 12.2 10*3/uL (2.3-7.9); NEUT % 81.1 % (47.0-73.0); PLATELET COUNT AUTOMATED 105 10*3/uL (130-400); RED BLOOD COUNT 4.65 10*6/uL (4.50-5.90); RED CELL DISTRI WIDTH 15.1 % (0-14.5)
[2018-02-27 11:35] LABS: ACT PARTIAL THROMBO TIME 24.8 SECONDS (20.8-31.5); INTERNATIONAL NORM RATIO 0.9 (2.0-3.5)
[2018-02-27 11:42] LABS: ALBUMIN 3.7 gm/dl (3.1-4.5); ALKALINE PHOSPHATASE 81 U/L (45-117); BUN 17 mg/dl (7-24); CHLORIDE 104 mmol/L (98-107); CREATININE 1.17 mg/dL (0.70-1.30); SGOT/AST 23 IU/L (3-35); SGPT/ALT 22 U/L (12-78); SODIUM 138 mmol/L (136-145); TOTAL PROTEIN 7.3 gm/dL (6.4-8.2)
[2018-02-27 11:44] LABS: ETHYL ALCOHOL < 3.0 mg/dl (<3); TROPONIN I < 0.015 ng/ml (<0.045)
[2018-02-27 11:52] LABS: BILIRUBIN NEGATIVE (NEGATIVE); BLOOD TRACE-LYSED (NEGATIVE); CLARITY CLEAR (CLEAR); COLOR STRAW (YELLOW); GLUCOSE TRACE (NEGATIVE); KETONE NEGATIVE (NEGATIVE); LEUKO ESTERASE NEGATIVE (NEGATIVE); NITRITE NEGATIVE (NEGATIVE); SPECIFIC GRAVITY 1.015 (1.005-1.030); UROBILINOGEN 0.2 E.U./dl (0.2-1.0)
[2018-02-27 12:01] LABS: URINE AMPHETAMINES < 1000 (1000ng/ml); URINE BARBITURATES < 200 (200ng/ml); URINE BENZODIAZEPINES < 200 (200ng/ml); URINE CANNABINOIDS (THC) < 50 (50ng/ml); URINE COCAINE > 300 (300ng/ml); URINE METHADONE < 300 (300ng/ml); URINE OPIATES < 300 (300ng/ml)
[2018-02-27 12:21] LABS: URINE PHENCYCLIDINE < 25 (25ng/ml)
[2018-02-27 12:31] LABS: BACTERIA TRACE; EPITHELIAL CELLS 0-2; WBC 0-2 wbc/hpf (0-5)
[2018-02-27 14:02] VITALS: BP 120/58
== END 2018-02-27 13:56 | disposition home or self-care (01) ==
LOC: ED 10:49
PROVIDERS: Emergency Medicine
DX: T40.4X1A Poisoning by other synthetic narcotics, accidental (unintentional), initial encounter (principal); G89.29 Other chronic pain; M54.5 Low back pain; E78.5 Hyperlipidemia, unspecified; F41.9 Anxiety disorder, unspecified; F32.9 Major depressive disorder, single episode, unspecified; E11.65 Type 2 diabetes mellitus with hyperglycemia; I10 Essential (primary) hypertension; F12.10 Cannabis abuse, uncomplicated; G62.9 Polyneuropathy, unspecified; E66.3 Overweight; Z68.29 Body mass index [BMI] 29.0-29.9, adult; Z98.890 Other specified postprocedural states; Z96.641 Presence of right artificial hip joint; Z79.82 Long term (current) use of aspirin; Z79.899 Other long term (current) drug therapy; Z88.2 Allergy status to sulfonamides; Z88.6 Allergy status to analgesic agent; Y92.9 Unspecified place or not applicable

== ENCOUNTER → 2018-03-12 | Day surgery (SDC) | payer MEDICARE, MEDICAID ==
[2018-03-08 10:15] VITALS: BP 162/80
[2018-03-08 11:48] LABS: BASO % 0.4 % (0.0-1.0); EOS # 0.2 10*3/uL (0.0-0.4); EOS % 1.6 % (1.0-4.0); HEMATOCRIT 39.9 % (42.0-52.0); LYMPH # 2.3 10*3/uL (1.3-4.4); LYMPH % 21.2 % (27.0-41.0); MEAN CELL VOLUME 87.1 fl (80.0-94.0); MEAN CORPUSCULAR HGB 28.4 pg (27.0-31.0); MEAN CORPUSCULAR HGB CONC 32.6 g/dl (33.0-37.0); MEAN PLATELET VOLUME 13.6 fl (9.6-12.3); MONO # 0.6 10*3/uL (0.1-1.0); MONO % 5.3 % (3.0-9.0); NEUT # 7.8 10*3/uL (2.3-7.9); NEUT % 70.8 % (47.0-73.0); PLATELET COUNT AUTOMATED 118 10*3/uL (130-400); RED BLOOD COUNT 4.58 10*6/uL (4.50-5.90); RED CELL DISTRI WIDTH 14.9 % (0-14.5)
[2018-03-08 12:11] LABS: BUN 19 mg/dl (7-24); CHLORIDE 109 mmol/L (98-107); CREATININE 0.93 mg/dL (0.70-1.30); POTASSIUM 4.1 mmol/L (3.5-5.1); SODIUM 144 mmol/L (136-145)
[~2018-03-12] VITALS: Ht 180.3 cm; Wt 72.6 kg
[~2018-03-12] MED LIST changes: +TRAMADOL HCL50 MG PO
[2018-03-12 07:38] VITALS: BP 157/93
[2018-03-12 08:36] VITALS: BP 120/62
[2018-03-12 08:50] VITALS: BP 117/81
[2018-03-12 09:05] VITALS: BP 167/82
== END | disposition home or self-care (01) ==
LOC: SDC 03-08 08:45
DX: L89.159 Pressure ulcer of sacral region, unspecified stage (principal); M54.5 Low back pain; G89.29 Other chronic pain; E11.42 Type 2 diabetes mellitus with diabetic polyneuropathy; I10 Essential (primary) hypertension; E78.5 Hyperlipidemia, unspecified; I73.9 Peripheral vascular disease, unspecified; F41.9 Anxiety disorder, unspecified; Z96.643 Presence of artificial hip joint, bilateral; Z83.3 Family history of diabetes mellitus; Z82.49 Family history of ischemic heart disease and other diseases of the circulatory system; Z98.890 Other specified postprocedural states; Z79.899 Other long term (current) drug therapy; Z88.2 Allergy status to sulfonamides; Z88.8 Allergy status to other drugs, medicaments and biological substances; Z79.82 Long term (current) use of aspirin

== ENCOUNTER → 2018-03-28 | Outpatient (CLI) | payer MEDICARE, MEDICAID ==
[~2018-03-28] MED LIST changes: +ALENDRONATE SOD35 M1 PO; +ATORVASTATIN CA20 M1 PO; +DINO-LIFE1 EAC1 PO; +DONEPEZIL HYDRO10 M1 PO; +GLUCOPHAGE1000 MG PO; +Humalog SQ; +LEXAPRO20 MG PO; +LYRICA75 M1 PO; -METFORMIN HCL1000 MG PO; +NORCO 5-325 TA1 EACH PO; +RESTORIL15 MG PO; +REVATIO20 MG PO; +ROPINIROLE HYDRO2 M2 PO; +SEROQUEL25 MG PO; +TEMAZEPAM15 M1 PO; +VESICARE10 MG PO
== END | disposition home or self-care (01) ==
LOC: WOUNDCARE 12:21
DX: T81.89XD Other complications of procedures, not elsewhere classified, subsequent encounter (principal); E11.622 Type 2 diabetes mellitus with other skin ulcer; L89.152 Pressure ulcer of sacral region, stage 2; L98.491 Non-pressure chronic ulcer of skin of other sites limited to breakdown of skin; E11.51 Type 2 diabetes mellitus with diabetic peripheral angiopathy without gangrene; F17.200 Nicotine dependence, unspecified, uncomplicated; Y83.8 Other surgical procedures as the cause of abnormal reaction of the patient, or of later complication, without mention of misadventure at the time of the procedure

== ENCOUNTER → 2018-04-04 | Outpatient (CLI) | payer MEDICARE, MEDICAID | END | disposition home or self-care (01) | LOC: MRI 02:51 | DX: M54.16 Radiculopathy, lumbar region (principal); M47.896 Other spondylosis, lumbar region; M41.86 Other forms of scoliosis, lumbar region; M16.0 Bilateral primary osteoarthritis of hip; Z87.39 Personal history of other diseases of the musculoskeletal system and connective tissue ==

== ENCOUNTER → 2018-04-11 | Outpatient (CLI) | payer MEDICARE, MEDICAID | END | disposition home or self-care (01) | LOC: WOUNDCARE 00:39 | DX: T81.89XD Other complications of procedures, not elsewhere classified, subsequent encounter (principal); E11.622 Type 2 diabetes mellitus with other skin ulcer; L89.152 Pressure ulcer of sacral region, stage 2; L98.491 Non-pressure chronic ulcer of skin of other sites limited to breakdown of skin; E11.51 Type 2 diabetes mellitus with diabetic peripheral angiopathy without gangrene; F17.200 Nicotine dependence, unspecified, uncomplicated; Y83.8 Other surgical procedures as the cause of abnormal reaction of the patient, or of later complication, without mention of misadventure at the time of the procedure ==

== ENCOUNTER 2018-04-25 01:14 | Inpatient (IN) | payer MEDICARE, MEDICAID ==
[~2018-04-25] VITALS: Ht 177.8 cm; Wt 72.6 kg
[~2018-04-25 01:14] MED LIST changes: -ALENDRONATE SOD35 M1 PO; -ATORVASTATIN CA20 M1 PO; -DINO-LIFE1 EAC1 PO; -DONEPEZIL HYDRO10 M1 PO; -Humalog SQ; -LEXAPRO20 MG PO; -LYRICA75 M1 PO; -NORCO 5-325 TA1 EACH PO; -RESTORIL15 MG PO; -REVATIO20 MG PO; -ROPINIROLE HYDRO2 M2 PO; -SEROQUEL25 MG PO; -TEMAZEPAM15 M1 PO; -VESICARE10 MG PO
[2018-04-25 13:00] VITALS: BP 136/84
[2018-04-25 13:29] LABS: BASO % 0.2 % (0.0-1.0); EOS # 0.1 10*3/uL (0.0-0.4); EOS % 0.8 % (1.0-4.0); HEMATOCRIT 35.4 % (42.0-52.0); HEMOGLOBIN 11.6 g/dl (14.0-18.0); LYMPH # 2.1 10*3/uL (1.3-4.4); LYMPH % 22.7 % (27.0-41.0); MEAN CORPUSCULAR HGB 28.5 pg (27.0-31.0); MEAN CORPUSCULAR HGB CONC 32.8 g/dl (33.0-37.0); MEAN PLATELET VOLUME 13.2 fl (9.6-12.3); MONO # 0.7 10*3/uL (0.1-1.0); MONO % 7.5 % (3.0-9.0); NEUT # 6.4 10*3/uL (2.3-7.9); NEUT % 68.5 % (47.0-73.0); PLATELET COUNT AUTOMATED 114 10*3/uL (130-400); RED BLOOD COUNT 4.07 10*6/uL (4.50-5.90); RED CELL DISTRI WIDTH 14.9 % (0-14.5); WHITE BLOOD COUNT 9.3 10*3/uL (4.8-10.8)
[2018-04-25 13:46] LABS: ALBUMIN 3.6 gm/dl (3.1-4.5); ALKALINE PHOSPHATASE 64 U/L (45-117); BUN 22 mg/dl (7-24); CHLORIDE 107 mmol/L (98-107); POTASSIUM 4.1 mmol/L (3.5-5.1); SGOT/AST 13 IU/L (3-35); SGPT/ALT 18 U/L (12-78); SODIUM 140 mmol/L (136-145); TOTAL PROTEIN 7.2 gm/dL (6.4-8.2)
[2018-04-25] MEDS ORDERED: LEXAPRO20 MG PO (15:37)
[2018-04-25] MEDS ORDERED: REVATIO20 MG PO (15:39)
[2018-04-25] MEDS ORDERED: VESICARE10 MG PO (15:41)
[2018-04-25] MEDS ORDERED: NORCO 5-325 TA1 EACH PO (15:45)
[2018-04-25] MEDS ORDERED: SEROQUEL25 MG PO (15:49)
[2018-04-25] MEDS ORDERED: RESTORIL15 MG PO (15:50)
[2018-04-25] MEDS ORDERED: ROPINIROLE HYDRO2 M2 PO (15:51)
[2018-04-25] MEDS ORDERED: DONEPEZIL HYDRO10 M1 PO (15:52)
[2018-04-25] MEDS ORDERED: ALENDRONATE SOD35 M1 PO (15:54)
[2018-04-25] MEDS ORDERED: DINO-LIFE1 EAC1 PO (15:54)
[2018-04-25] MEDS ORDERED: ATORVASTATIN CA20 M1 PO (15:55)
[2018-04-25 16:00] VITALS: BP 116/64
[2018-04-25 20:00] VITALS: BP 135/69
[2018-04-26] VITALS (8 sets, daily range): BP systolic 102–152; BP diastolic 50–76
[2018-04-26 07:05] LABS: BASO % 0.2 % (0.0-1.0); EOS # 0.1 10*3/uL (0.0-0.4); EOS % 1.4 % (1.0-4.0); HEMATOCRIT 34.9 % (42.0-52.0); HEMOGLOBIN 11.2 g/dl (14.0-18.0); LYMPH # 0.8 10*3/uL (1.3-4.4); LYMPH % 10.1 % (27.0-41.0); MEAN CELL VOLUME 87.3 fl (80.0-94.0); MEAN CORPUSCULAR HGB CONC 32.1 g/dl (33.0-37.0); MEAN PLATELET VOLUME 12.7 fl (9.6-12.3); MONO # 0.7 10*3/uL (0.1-1.0); MONO % 8.4 % (3.0-9.0); NEUT # 6.6 10*3/uL (2.3-7.9); NEUT % 79.7 % (47.0-73.0); PLATELET COUNT AUTOMATED 90 10*3/uL (130-400); RED CELL DISTRI WIDTH 14.7 % (0-14.5); WHITE BLOOD COUNT 8.3 10*3/uL (4.8-10.8)
[2018-04-26 07:36] LABS: BUN 17 mg/dl (7-24); CHLORIDE 112 mmol/L (98-107); CHOLESTEROL 131 mg/dL (<200); CREATININE 1.22 mg/dL (0.70-1.30); PHOSPHOROUS 2.7 mg/dL (2.5-4.9); POTASSIUM 4.5 mmol/L (3.5-5.1); SODIUM 143 mmol/L (136-145); TRIGLYCERIDES 108 mg/dl (<150); VLDL CHOLESTEROL 22 mg/dL (6-40)
[2018-04-26 07:47] LABS: FREE T4 1.11 ng/dl (0.76-1.46); HDL CHOLESTEROL 31 mg/dl (40-60); LDL CHOLESTEROL 78 mg/dL (9-159); THYROID STIM HORMONE (HS) 0.726 uIU/ml (0.358-4.75)
[2018-04-26 08:48] LABS: VITAMIN D, 25-HYDROXY 32.7 ng/mL (30-100)
[2018-04-27] VITALS: BP 90/48
[2018-04-27 01:25] LABS: HEMATOCRIT 30.3 % (42.0-52.0); HEMOGLOBIN 9.9 g/dl (14.0-18.0)
[2018-04-27 03:18] VITALS: BP 96/58
[2018-04-27 06:53] LABS: BASO % 0.3 % (0.0-1.0); EOS # 0.2 10*3/uL (0.0-0.4); EOS % 2.3 % (1.0-4.0); HEMATOCRIT 31.2 % (42.0-52.0); HEMOGLOBIN 9.8 g/dl (14.0-18.0); LYMPH # 1.4 10*3/uL (1.3-4.4); LYMPH % 19.4 % (27.0-41.0); MEAN CELL VOLUME 88.9 fl (80.0-94.0); MEAN CORPUSCULAR HGB 27.9 pg (27.0-31.0); MEAN CORPUSCULAR HGB CONC 31.4 g/dl (33.0-37.0); MEAN PLATELET VOLUME 13.5 fl (9.6-12.3); MONO # 0.8 10*3/uL (0.1-1.0); MONO % 10.8 % (3.0-9.0); NEUT % 66.9 % (47.0-73.0); PLATELET COUNT AUTOMATED 83 10*3/uL (130-400); RED BLOOD COUNT 3.51 10*6/uL (4.50-5.90); RED CELL DISTRI WIDTH 15.2 % (0-14.5); WHITE BLOOD COUNT 7.4 10*3/uL (4.8-10.8)
[2018-04-27 07:12] LABS: ALBUMIN 2.7 gm/dl (3.1-4.5); BUN 14 mg/dl (7-24); CHLORIDE 115 mmol/L (98-107); CREATININE 0.98 mg/dL (0.70-1.30); PHOSPHOROUS 2.6 mg/dL (2.5-4.9); POTASSIUM 4.3 mmol/L (3.5-5.1); SODIUM 147 mmol/L (136-145)
[2018-04-27 08:00] VITALS: BP 129/67
[2018-04-27 12:00] VITALS: BP 106/62
[2018-04-27 16:00] VITALS: BP 127/60
[2018-04-27 20:00] VITALS: BP 142/73
[2018-04-28] VITALS: BP 118/63
[2018-04-28 07:03] LABS: BASO % 0.4 % (0.0-1.0); EOS # 0.2 10*3/uL (0.0-0.4); EOS % 3.9 % (1.0-4.0); HEMATOCRIT 30.2 % (42.0-52.0); HEMOGLOBIN 9.4 g/dl (14.0-18.0); LYMPH # 1.4 10*3/uL (1.3-4.4); LYMPH % 31.4 % (27.0-41.0); MEAN CELL VOLUME 89.3 fl (80.0-94.0); MEAN CORPUSCULAR HGB 27.8 pg (27.0-31.0); MEAN CORPUSCULAR HGB CONC 31.1 g/dl (33.0-37.0); MEAN PLATELET VOLUME 14.1 fl (9.6-12.3); MONO # 0.5 10*3/uL (0.1-1.0); MONO % 10.9 % (3.0-9.0); NEUT # 2.4 10*3/uL (2.3-7.9); NEUT % 53.4 % (47.0-73.0); PLATELET COUNT AUTOMATED 86 10*3/uL (130-400); RED BLOOD COUNT 3.38 10*6/uL (4.50-5.90); RED CELL DISTRI WIDTH 15.3 % (0-14.5); WHITE BLOOD COUNT 4.6 10*3/uL (4.8-10.8)
[2018-04-28 07:28] LABS: ALBUMIN 2.6 gm/dl (3.1-4.5); BUN 11 mg/dl (7-24); CHLORIDE 113 mmol/L (98-107); PHOSPHOROUS 2.5 mg/dL (2.5-4.9); POTASSIUM 4.3 mmol/L (3.5-5.1); SODIUM 145 mmol/L (136-145)
[2018-04-28 08:39] VITALS: BP 142/73
[2018-04-28 13:13] VITALS: BP 144/59
[2018-04-28 16:00] VITALS: BP 136/59
[2018-04-28 20:00] VITALS: BP 158/69
[2018-04-29] VITALS: BP 151/71
[2018-04-29 06:07] LABS: BASO % 0.7 % (0.0-1.0); EOS # 0.2 10*3/uL (0.0-0.4); EOS % 3.6 % (1.0-4.0); HEMATOCRIT 31.6 % (42.0-52.0); HEMOGLOBIN 9.8 g/dl (14.0-18.0); LYMPH # 1.7 10*3/uL (1.3-4.4); LYMPH % 30.9 % (27.0-41.0); MEAN CORPUSCULAR HGB 27.6 pg (27.0-31.0); MONO # 0.5 10*3/uL (0.1-1.0); MONO % 9.3 % (3.0-9.0); NEUT % 55.1 % (47.0-73.0); PLATELET COUNT AUTOMATED 98 10*3/uL (130-400); RED BLOOD COUNT 3.55 10*6/uL (4.50-5.90); RED CELL DISTRI WIDTH 14.9 % (0-14.5); WHITE BLOOD COUNT 5.5 10*3/uL (4.8-10.8)
[2018-04-29 06:13] LABS: BUN 11 mg/dl (7-24); CHLORIDE 111 mmol/L (98-107); CREATININE 0.95 mg/dL (0.70-1.30); POTASSIUM 3.8 mmol/L (3.5-5.1); SODIUM 146 mmol/L (136-145)
[2018-04-29 08:00] VITALS: BP 156/76
[2018-04-29 12:00] VITALS: BP 164/78
[2018-04-29 16:00] VITALS: BP 165/77
[2018-04-29 20:00] VITALS: BP 135/56
[2018-04-30] VITALS: BP 126/59
[2018-04-30 06:45] LABS: BASO % 0.6 % (0.0-1.0); EOS # 0.2 10*3/uL (0.0-0.4); EOS % 2.4 % (1.0-4.0); HEMATOCRIT 31.1 % (42.0-52.0); HEMOGLOBIN 9.7 g/dl (14.0-18.0); LYMPH # 2.2 10*3/uL (1.3-4.4); LYMPH % 33.1 % (27.0-41.0); MEAN CELL VOLUME 87.9 fl (80.0-94.0); MEAN CORPUSCULAR HGB 27.4 pg (27.0-31.0); MEAN CORPUSCULAR HGB CONC 31.2 g/dl (33.0-37.0); MEAN PLATELET VOLUME 13.6 fl (9.6-12.3); MONO # 0.6 10*3/uL (0.1-1.0); MONO % 8.7 % (3.0-9.0); NEUT # 3.7 10*3/uL (2.3-7.9); NEUT % 54.9 % (47.0-73.0); PLATELET COUNT AUTOMATED 115 10*3/uL (130-400); RED BLOOD COUNT 3.54 10*6/uL (4.50-5.90); RED CELL DISTRI WIDTH 14.7 % (0-14.5); WHITE BLOOD COUNT 6.7 10*3/uL (4.8-10.8)
[2018-04-30 07:04] LABS: BUN 15 mg/dl (7-24); CHLORIDE 111 mmol/L (98-107); POTASSIUM 3.8 mmol/L (3.5-5.1); SODIUM 147 mmol/L (136-145)
[2018-04-30 08:00] VITALS: BP 110/54
[2018-04-30 12:00] VITALS: BP 123/52
[2018-04-30 16:00] VITALS: BP 110/58
[2018-04-30 20:00] VITALS: BP 127/67
[2018-05-01] VITALS: BP 111/56; BP 123/61
[2018-05-01 06:59] LABS: BASO % 0.7 % (0.0-1.0); EOS # 0.3 10*3/uL (0.0-0.4); EOS % 4.3 % (1.0-4.0); HEMATOCRIT 32.7 % (42.0-52.0); HEMOGLOBIN 10.2 g/dl (14.0-18.0); LYMPH # 2.5 10*3/uL (1.3-4.4); LYMPH % 43.3 % (27.0-41.0); MEAN CELL VOLUME 89.6 fl (80.0-94.0); MEAN CORPUSCULAR HGB 27.9 pg (27.0-31.0); MEAN CORPUSCULAR HGB CONC 31.2 g/dl (33.0-37.0); MEAN PLATELET VOLUME 13.3 fl (9.6-12.3); MONO # 0.4 10*3/uL (0.1-1.0); MONO % 6.9 % (3.0-9.0); NEUT # 2.6 10*3/uL (2.3-7.9); NEUT % 44.6 % (47.0-73.0); PLATELET COUNT AUTOMATED 119 10*3/uL (130-400); RED BLOOD COUNT 3.65 10*6/uL (4.50-5.90); RED CELL DISTRI WIDTH 14.9 % (0-14.5); WHITE BLOOD COUNT 5.8 10*3/uL (4.8-10.8)
[2018-05-01 07:35] LABS: BUN 16 mg/dl (7-24); CHLORIDE 107 mmol/L (98-107); CREATININE 1.18 mg/dL (0.70-1.30); SODIUM 143 mmol/L (136-145)
[2018-05-01 08:00] VITALS: BP 127/58
[2018-05-01 12:00] VITALS: BP 122/67
[2018-05-01 16:00] VITALS: BP 108/50
[2018-05-01 20:10] VITALS: BP 138/61
[2018-05-02 00:18] VITALS: BP 106/50
[2018-05-02 03:15] VITALS: BP 109/51
[2018-05-02 06:08] LABS: BASO # 0.1 10*3/uL (0.0-0.1); BASO % 0.7 % (0.0-1.0); EOS # 0.2 10*3/uL (0.0-0.4); EOS % 2.9 % (1.0-4.0); HEMOGLOBIN 10.6 g/dl (14.0-18.0); LYMPH # 2.7 10*3/uL (1.3-4.4); LYMPH % 38.7 % (27.0-41.0); MEAN CELL VOLUME 89.7 fl (80.0-94.0); MEAN CORPUSCULAR HGB CONC 31.2 g/dl (33.0-37.0); MEAN PLATELET VOLUME 13.2 fl (9.6-12.3); MONO # 0.5 10*3/uL (0.1-1.0); NEUT # 3.5 10*3/uL (2.3-7.9); NEUT % 50.6 % (47.0-73.0); PLATELET COUNT AUTOMATED 124 10*3/uL (130-400); RED BLOOD COUNT 3.79 10*6/uL (4.50-5.90); RED CELL DISTRI WIDTH 14.9 % (0-14.5); WHITE BLOOD COUNT 6.9 10*3/uL (4.8-10.8)
[2018-05-02 06:35] LABS: BUN 17 mg/dl (7-24); CHLORIDE 109 mmol/L (98-107); CREATININE 1.05 mg/dL (0.70-1.30); POTASSIUM 4.6 mmol/L (3.5-5.1); SODIUM 146 mmol/L (136-145)
[2018-05-02 08:00] VITALS: BP 121/65
[2018-05-02 12:00] VITALS: BP 116/46
[2018-05-02 16:00] VITALS: BP 124/48
[2018-05-02 20:00] VITALS: BP 138/72
[2018-05-03] VITALS: BP 126/52
[2018-05-03 07:47] LABS: BASO % 0.6 % (0.0-1.0); EOS # 0.1 10*3/uL (0.0-0.4); EOS % 1.6 % (1.0-4.0); HEMATOCRIT 32.4 % (42.0-52.0); HEMOGLOBIN 10.4 g/dl (14.0-18.0); LYMPH # 1.9 10*3/uL (1.3-4.4); LYMPH % 30.6 % (27.0-41.0); MEAN CELL VOLUME 87.6 fl (80.0-94.0); MEAN CORPUSCULAR HGB 28.1 pg (27.0-31.0); MEAN CORPUSCULAR HGB CONC 32.1 g/dl (33.0-37.0); MEAN PLATELET VOLUME 13.7 fl (9.6-12.3); MONO # 0.5 10*3/uL (0.1-1.0); MONO % 8.1 % (3.0-9.0); NEUT # 3.7 10*3/uL (2.3-7.9); NEUT % 58.9 % (47.0-73.0); PLATELET COUNT AUTOMATED 130 10*3/uL (130-400); RED CELL DISTRI WIDTH 14.6 % (0-14.5); WHITE BLOOD COUNT 6.3 10*3/uL (4.8-10.8)
[2018-05-03 08:00] VITALS: BP 152/70
[2018-05-03 08:17] LABS: BUN 18 mg/dl (7-24); CHLORIDE 109 mmol/L (98-107); CREATININE 0.86 mg/dL (0.70-1.30); SODIUM 144 mmol/L (136-145)
[2018-05-03] MEDS ORDERED: TEMAZEPAM15 M1 PO (10:04)
[2018-05-03] MEDS ORDERED: NORCO 5-325 TA1 EACH PO (10:04)
[2018-05-03] MEDS ORDERED: Humalog SQ (10:04)
[2018-05-03] MEDS ORDERED: LYRICA75 M1 PO (14:15)
== END 2018-05-03 14:30 | disposition other institution (70) | DRG 673 ==
LOC: WOUNDCARE 01:14 → 4E 12:50 → WOUNDCARE 13:51 → 4E 05-03 14:30
PROVIDERS: Family Medicine; Internal Medicine
PROC: 0JB70ZZ Excision of Back Subcutaneous Tissue and Fascia, Open Approach (ICD-10-PCS; principal; 2018-04-26)
DX: N17.0 Acute kidney failure with tubular necrosis (principal); E43 Unspecified severe protein-calorie malnutrition; L89.150 Pressure ulcer of sacral region, unstageable; E11.40 Type 2 diabetes mellitus with diabetic neuropathy, unspecified; D69.6 Thrombocytopenia, unspecified; E11.51 Type 2 diabetes mellitus with diabetic peripheral angiopathy without gangrene; E87.0 Hyperosmolality and hypernatremia; R00.1 Bradycardia, unspecified; G89.18 Other acute postprocedural pain; F41.9 Anxiety disorder, unspecified; M51.36 Other intervertebral disc degeneration, lumbar region; F32.9 Major depressive disorder, single episode, unspecified; I10 Essential (primary) hypertension; Z96.643 Presence of artificial hip joint, bilateral; F17.210 Nicotine dependence, cigarettes, uncomplicated; M54.31 Sciatica, right side; M54.32 Sciatica, left side; E78.2 Mixed hyperlipidemia; R33.9 Retention of urine, unspecified; M48.00 Spinal stenosis, site unspecified; D64.9 Anemia, unspecified; R26.2 Difficulty in walking, not elsewhere classified; E87.8 Other disorders of electrolyte and fluid balance, not elsewhere classified; Z78.9 Other specified health status; Z91.81 History of falling; Z98.1 Arthrodesis status; Z82.49 Family history of ischemic heart disease and other diseases of the circulatory system; Z88.2 Allergy status to sulfonamides; Z88.8 Allergy status to other drugs, medicaments and biological substances; Z79.899 Other long term (current) drug therapy; Z79.82 Long term (current) use of aspirin; Z71.6 Tobacco abuse counseling; Z68.22 Body mass index [BMI] 22.0-22.9, adult

== ENCOUNTER → 2018-05-16 | Outpatient (CLI) | payer MEDICARE, MEDICAID ==
[~2018-05-16] MED LIST changes: +ALENDRONATE SOD35 M1 PO; +ATORVASTATIN CA20 M1 PO; +DINO-LIFE1 EAC1 PO; +DONEPEZIL HYDRO10 M1 PO; +Humalog SQ; +LEXAPRO20 MG PO; +LYRICA75 M1 PO; +NORCO 5-325 TA1 EACH PO; +RESTORIL15 MG PO; +REVATIO20 MG PO; +ROPINIROLE HYDRO2 M2 PO; +SEROQUEL25 MG PO; +TEMAZEPAM15 M1 PO; +VESICARE10 MG PO
== END | disposition home or self-care (01) ==
LOC: WOUNDCARE 04:04
DX: T81.31XD Disruption of external operation (surgical) wound, not elsewhere classified, subsequent encounter (principal); E11.622 Type 2 diabetes mellitus with other skin ulcer; L89.152 Pressure ulcer of sacral region, stage 2; L98.491 Non-pressure chronic ulcer of skin of other sites limited to breakdown of skin; E11.51 Type 2 diabetes mellitus with diabetic peripheral angiopathy without gangrene; F17.200 Nicotine dependence, unspecified, uncomplicated; Y83.8 Other surgical procedures as the cause of abnormal reaction of the patient, or of later complication, without mention of misadventure at the time of the procedure

== ENCOUNTER → 2018-05-23 | Outpatient (CLI) | payer MEDICARE, MEDICAID | END | disposition home or self-care (01) | LOC: WOUNDCARE 01:48 | DX: T81.89XD Other complications of procedures, not elsewhere classified, subsequent encounter (principal); E11.622 Type 2 diabetes mellitus with other skin ulcer; L89.152 Pressure ulcer of sacral region, stage 2; L98.491 Non-pressure chronic ulcer of skin of other sites limited to breakdown of skin; E11.51 Type 2 diabetes mellitus with diabetic peripheral angiopathy without gangrene; N48.5 Ulcer of penis; L03.317 Cellulitis of buttock; F17.290 Nicotine dependence, other tobacco product, uncomplicated; Y83.8 Other surgical procedures as the cause of abnormal reaction of the patient, or of later complication, without mention of misadventure at the time of the procedure ==

== ENCOUNTER → 2018-05-30 | Outpatient (CLI) | payer MEDICARE, MEDICAID | END | disposition home or self-care (01) | LOC: WOUNDCARE 03:55 | DX: T81.89XD Other complications of procedures, not elsewhere classified, subsequent encounter (principal); E11.622 Type 2 diabetes mellitus with other skin ulcer; L89.152 Pressure ulcer of sacral region, stage 2; L98.494 Non-pressure chronic ulcer of skin of other sites with necrosis of bone; L89.893 Pressure ulcer of other site, stage 3; N48.5 Ulcer of penis; E11.51 Type 2 diabetes mellitus with diabetic peripheral angiopathy without gangrene; F17.200 Nicotine dependence, unspecified, uncomplicated; Y83.8 Other surgical procedures as the cause of abnormal reaction of the patient, or of later complication, without mention of misadventure at the time of the procedure ==

== ENCOUNTER → 2018-07-04 | Outpatient (CLI) | payer MEDICARE, MEDICAID ==
[~2018-07-04] MED LIST changes: +CEFTRIAXON2 GM/50 ML IV; +CLONAZEPAM1 MG PO; +DULCOLAX10 M1 R; +JUVEN PACKET1 EACH PO; +KLONOPIN0.5 MG PO; +LACTINEX 0.2 MG1 TAB PO; +LEXAPRO10 MG PO; +OXYCODONE HCL10 M1 PO; +RESOURCE 2.0 2237 ML PO
== END | disposition home or self-care (01) ==
LOC: WOUNDCARE 05:15
DX: E11.622 Type 2 diabetes mellitus with other skin ulcer (principal); L89.154 Pressure ulcer of sacral region, stage 4; L98.491 Non-pressure chronic ulcer of skin of other sites limited to breakdown of skin; E11.51 Type 2 diabetes mellitus with diabetic peripheral angiopathy without gangrene; F17.290 Nicotine dependence, other tobacco product, uncomplicated

== ENCOUNTER → 2018-07-11 | Outpatient (CLI) | payer MEDICARE, MEDICAID | END | disposition home or self-care (01) | LOC: WOUNDCARE 03:36 | DX: E11.622 Type 2 diabetes mellitus with other skin ulcer (principal); L89.154 Pressure ulcer of sacral region, stage 4; L98.496 Non-pressure chronic ulcer of skin of other sites with bone involvement without evidence of necrosis; E11.51 Type 2 diabetes mellitus with diabetic peripheral angiopathy without gangrene; F17.200 Nicotine dependence, unspecified, uncomplicated ==

== ENCOUNTER → 2018-07-25 | Outpatient (CLI) | payer MEDICARE, MEDICAID | END | disposition home or self-care (01) | LOC: WOUNDCARE 00:33 | DX: E11.622 Type 2 diabetes mellitus with other skin ulcer (principal); L89.154 Pressure ulcer of sacral region, stage 4; L98.491 Non-pressure chronic ulcer of skin of other sites limited to breakdown of skin; N48.5 Ulcer of penis; E11.51 Type 2 diabetes mellitus with diabetic peripheral angiopathy without gangrene; L03.317 Cellulitis of buttock; F17.290 Nicotine dependence, other tobacco product, uncomplicated ==

== ENCOUNTER → 2018-08-01 | Outpatient (CLI) | payer MEDICARE, MEDICAID | END | disposition home or self-care (01) | LOC: WOUNDCARE 04:46 | DX: E11.622 Type 2 diabetes mellitus with other skin ulcer (principal); L89.154 Pressure ulcer of sacral region, stage 4; L98.491 Non-pressure chronic ulcer of skin of other sites limited to breakdown of skin; E11.51 Type 2 diabetes mellitus with diabetic peripheral angiopathy without gangrene; F17.290 Nicotine dependence, other tobacco product, uncomplicated ==

== ENCOUNTER → 2018-08-08 | Outpatient (CLI) | payer MEDICARE, MEDICAID | END | disposition home or self-care (01) | LOC: WOUNDCARE 03:34 | DX: E11.622 Type 2 diabetes mellitus with other skin ulcer (principal); L89.154 Pressure ulcer of sacral region, stage 4; E11.51 Type 2 diabetes mellitus with diabetic peripheral angiopathy without gangrene; F17.290 Nicotine dependence, other tobacco product, uncomplicated ==

== ENCOUNTER → 2018-08-15 | Outpatient (CLI) | payer MEDICARE, MEDICAID | END | disposition home or self-care (01) | LOC: WOUNDCARE 02:46 | DX: E11.622 Type 2 diabetes mellitus with other skin ulcer (principal); L89.154 Pressure ulcer of sacral region, stage 4; L98.491 Non-pressure chronic ulcer of skin of other sites limited to breakdown of skin; E11.51 Type 2 diabetes mellitus with diabetic peripheral angiopathy without gangrene; F17.200 Nicotine dependence, unspecified, uncomplicated ==

== ENCOUNTER → 2018-08-20 | Outpatient (CLI) | payer MEDICARE, MEDICAID | END | disposition home or self-care (01) | LOC: CT 07:44 | DX: M25.551 Pain in right hip (principal); M79.89 Other specified soft tissue disorders; M47.896 Other spondylosis, lumbar region; Z96.641 Presence of right artificial hip joint ==

== ENCOUNTER → 2018-08-22 | Outpatient (CLI) | payer MEDICARE, MEDICAID | END | disposition home or self-care (01) | LOC: WOUNDCARE | DX: E11.622 Type 2 diabetes mellitus with other skin ulcer (principal); L89.154 Pressure ulcer of sacral region, stage 4; L98.491 Non-pressure chronic ulcer of skin of other sites limited to breakdown of skin; E11.51 Type 2 diabetes mellitus with diabetic peripheral angiopathy without gangrene; F17.290 Nicotine dependence, other tobacco product, uncomplicated ==

== ENCOUNTER → 2018-09-05 | Outpatient (CLI) | payer MEDICARE, MEDICAID | END | disposition home or self-care (01) | LOC: WOUNDCARE 09:00 | DX: E11.622 Type 2 diabetes mellitus with other skin ulcer (principal); L89.154 Pressure ulcer of sacral region, stage 4; L98.491 Non-pressure chronic ulcer of skin of other sites limited to breakdown of skin; E11.51 Type 2 diabetes mellitus with diabetic peripheral angiopathy without gangrene; F17.290 Nicotine dependence, other tobacco product, uncomplicated ==

== ENCOUNTER → 2018-09-12 | Outpatient (CLI) | payer MEDICARE, MEDICAID ==
--- NOTE | ~2018-09-12 | EKG ---
[place], [place] ELECTROCARDIOGRAM REPORT NAME: SHI CAMPOS UNIT #: [id number] ROOM: DOCTOR: EPIPHANY DRAFT REPORT BIRTHDATE: [address] [facility] Test Date: 2018-09-12 Test Time: 10:06:55 Pat Name: SHI CAMPOS Department: Room: Gender: M Nursing Informatics Specialist: : 1965 Requested By: MELY SMITH Order Number: [id number] Reading MD: aSnjay Plummer MD Measurements Intervals [place] Rate: 76 P: 63 RI: 145 QRS: 37 QRSD: 87 T: 58 QT: 385 QTc: 433 Interpretive Statements Sinus rhythm Abnormal R-wave progression, early transition Compared to ECG 08/27/2018 12:26:14 Left-axis deviation no longer present Electronically Signed On 09-12-2018 8:09:27 PST by Sanjay Plummer MD CM:EKGRPT:ELECTROCARDIOGRAM REPORT 1006 0809 MELY SMITH MD EPIPHANY DRAFT REPORT MELY SMITH MD
== END | disposition home or self-care (01) ==
LOC: WOUNDCARE 01:01 → CARD 01:01 → WOUNDCARE 13:56
DX: Z01.818 Encounter for other preprocedural examination (principal); R94.31 Abnormal electrocardiogram [ECG] [EKG]; M86.68 Other chronic osteomyelitis, other site

== ENCOUNTER → 2018-09-18 | Outpatient (CLI) | payer MEDICARE, MEDICAID | END | disposition home or self-care (01) | LOC: WOUNDCARE 02:59 | DX: E11.622 Type 2 diabetes mellitus with other skin ulcer (principal); L89.154 Pressure ulcer of sacral region, stage 4; L98.491 Non-pressure chronic ulcer of skin of other sites limited to breakdown of skin; E11.69 Type 2 diabetes mellitus with other specified complication; M86.68 Other chronic osteomyelitis, other site; E11.51 Type 2 diabetes mellitus with diabetic peripheral angiopathy without gangrene; N48.5 Ulcer of penis; F17.200 Nicotine dependence, unspecified, uncomplicated ==

== ENCOUNTER → 2018-09-23 | Outpatient (CLI) | payer MEDICARE, MEDICAID | END | disposition home or self-care (01) | LOC: WOUNDCARE 03:59 | DX: E11.622 Type 2 diabetes mellitus with other skin ulcer (principal); L89.154 Pressure ulcer of sacral region, stage 4; L98.491 Non-pressure chronic ulcer of skin of other sites limited to breakdown of skin; E11.51 Type 2 diabetes mellitus with diabetic peripheral angiopathy without gangrene; E11.69 Type 2 diabetes mellitus with other specified complication; M86.68 Other chronic osteomyelitis, other site; N48.5 Ulcer of penis; F17.290 Nicotine dependence, other tobacco product, uncomplicated; Z71.6 Tobacco abuse counseling ==

== ENCOUNTER → 2018-09-24 | Outpatient (CLI) | payer MEDICARE, MEDICAID | END | disposition home or self-care (01) | LOC: WOUNDCARE 01:25 | DX: E11.622 Type 2 diabetes mellitus with other skin ulcer (principal); L89.154 Pressure ulcer of sacral region, stage 4; L98.491 Non-pressure chronic ulcer of skin of other sites limited to breakdown of skin; E11.69 Type 2 diabetes mellitus with other specified complication; M86.68 Other chronic osteomyelitis, other site; E11.51 Type 2 diabetes mellitus with diabetic peripheral angiopathy without gangrene; N48.5 Ulcer of penis; F17.290 Nicotine dependence, other tobacco product, uncomplicated; Z71.6 Tobacco abuse counseling ==

== ENCOUNTER → 2018-09-25 | Outpatient (CLI) | payer MEDICARE, MEDICAID | END | disposition home or self-care (01) | LOC: WOUNDCARE 04:43 | DX: E11.622 Type 2 diabetes mellitus with other skin ulcer (principal); L89.154 Pressure ulcer of sacral region, stage 4; L98.491 Non-pressure chronic ulcer of skin of other sites limited to breakdown of skin; E11.69 Type 2 diabetes mellitus with other specified complication; M86.68 Other chronic osteomyelitis, other site; E11.51 Type 2 diabetes mellitus with diabetic peripheral angiopathy without gangrene; N48.5 Ulcer of penis; F17.200 Nicotine dependence, unspecified, uncomplicated; Z71.6 Tobacco abuse counseling ==

== ENCOUNTER → 2018-09-26 | Outpatient (CLI) | payer MEDICARE, MEDICAID | END | disposition home or self-care (01) | LOC: WOUNDCARE 10:23 | DX: E11.622 Type 2 diabetes mellitus with other skin ulcer (principal); L89.154 Pressure ulcer of sacral region, stage 4; L98.491 Non-pressure chronic ulcer of skin of other sites limited to breakdown of skin; E11.69 Type 2 diabetes mellitus with other specified complication; M86.68 Other chronic osteomyelitis, other site; E11.51 Type 2 diabetes mellitus with diabetic peripheral angiopathy without gangrene; N48.5 Ulcer of penis; F17.290 Nicotine dependence, other tobacco product, uncomplicated; Z71.6 Tobacco abuse counseling ==

== ENCOUNTER → 2018-09-27 | Outpatient (CLI) | payer MEDICARE, MEDICAID | END | disposition home or self-care (01) | LOC: WOUNDCARE 02:59 | DX: E11.622 Type 2 diabetes mellitus with other skin ulcer (principal); L89.154 Pressure ulcer of sacral region, stage 4; L98.491 Non-pressure chronic ulcer of skin of other sites limited to breakdown of skin; E11.69 Type 2 diabetes mellitus with other specified complication; M86.68 Other chronic osteomyelitis, other site; E11.51 Type 2 diabetes mellitus with diabetic peripheral angiopathy without gangrene; N48.5 Ulcer of penis; F17.290 Nicotine dependence, other tobacco product, uncomplicated; Z71.6 Tobacco abuse counseling ==

== ENCOUNTER → 2018-09-30 | Outpatient (CLI) | payer MEDICARE, MEDICAID | END | disposition home or self-care (01) | LOC: WOUNDCARE 12:00 | DX: E11.622 Type 2 diabetes mellitus with other skin ulcer (principal); L89.154 Pressure ulcer of sacral region, stage 4; L98.491 Non-pressure chronic ulcer of skin of other sites limited to breakdown of skin; E11.69 Type 2 diabetes mellitus with other specified complication; M86.68 Other chronic osteomyelitis, other site; E11.51 Type 2 diabetes mellitus with diabetic peripheral angiopathy without gangrene; N48.5 Ulcer of penis; F17.290 Nicotine dependence, other tobacco product, uncomplicated; Z71.6 Tobacco abuse counseling ==

== ENCOUNTER → 2018-10-01 | Outpatient (CLI) | payer MEDICARE, MEDICAID | END | disposition home or self-care (01) | LOC: WOUNDCARE 04:26 → RESCLI 12:26 → WOUNDCARE 12:28 | DX: E11.622 Type 2 diabetes mellitus with other skin ulcer (principal); L89.154 Pressure ulcer of sacral region, stage 4; L98.491 Non-pressure chronic ulcer of skin of other sites limited to breakdown of skin; E11.69 Type 2 diabetes mellitus with other specified complication; M86.68 Other chronic osteomyelitis, other site; E11.51 Type 2 diabetes mellitus with diabetic peripheral angiopathy without gangrene; N48.5 Ulcer of penis; F17.290 Nicotine dependence, other tobacco product, uncomplicated; Z71.6 Tobacco abuse counseling ==

== ENCOUNTER → 2018-10-02 | Outpatient (CLI) | payer MEDICARE, MEDICAID | END | disposition home or self-care (01) | LOC: WOUNDCARE 02:25 | DX: E11.622 Type 2 diabetes mellitus with other skin ulcer (principal); L89.154 Pressure ulcer of sacral region, stage 4; L98.491 Non-pressure chronic ulcer of skin of other sites limited to breakdown of skin; E11.69 Type 2 diabetes mellitus with other specified complication; M86.68 Other chronic osteomyelitis, other site; E11.51 Type 2 diabetes mellitus with diabetic peripheral angiopathy without gangrene; N48.5 Ulcer of penis; F17.290 Nicotine dependence, other tobacco product, uncomplicated; Z71.6 Tobacco abuse counseling ==

== ENCOUNTER → 2018-10-03 | Outpatient (CLI) | payer MEDICARE, MEDICAID | END | disposition home or self-care (01) | LOC: WOUNDCARE 04:11 | DX: E11.622 Type 2 diabetes mellitus with other skin ulcer (principal); L89.154 Pressure ulcer of sacral region, stage 4; L98.491 Non-pressure chronic ulcer of skin of other sites limited to breakdown of skin; E11.69 Type 2 diabetes mellitus with other specified complication; M86.68 Other chronic osteomyelitis, other site; E11.51 Type 2 diabetes mellitus with diabetic peripheral angiopathy without gangrene; N48.5 Ulcer of penis; F17.290 Nicotine dependence, other tobacco product, uncomplicated; Z71.6 Tobacco abuse counseling ==

== ENCOUNTER → 2018-10-04 | Outpatient (CLI) | payer MEDICARE, MEDICAID | END | disposition home or self-care (01) | LOC: WOUNDCARE 01:01 | DX: E11.622 Type 2 diabetes mellitus with other skin ulcer (principal); L89.154 Pressure ulcer of sacral region, stage 4; L98.491 Non-pressure chronic ulcer of skin of other sites limited to breakdown of skin; E11.69 Type 2 diabetes mellitus with other specified complication; M86.68 Other chronic osteomyelitis, other site; E11.51 Type 2 diabetes mellitus with diabetic peripheral angiopathy without gangrene; N48.5 Ulcer of penis; F17.290 Nicotine dependence, other tobacco product, uncomplicated; Z71.6 Tobacco abuse counseling ==

== ENCOUNTER → 2018-10-07 | Outpatient (CLI) | payer MEDICARE, MEDICAID | END | disposition home or self-care (01) | LOC: WOUNDCARE 02:15 → RESCLI 11:08 → WOUNDCARE 13:30 | DX: E11.622 Type 2 diabetes mellitus with other skin ulcer (principal); L89.154 Pressure ulcer of sacral region, stage 4; L98.491 Non-pressure chronic ulcer of skin of other sites limited to breakdown of skin; E11.69 Type 2 diabetes mellitus with other specified complication; M86.68 Other chronic osteomyelitis, other site; E11.51 Type 2 diabetes mellitus with diabetic peripheral angiopathy without gangrene; N48.5 Ulcer of penis; F17.290 Nicotine dependence, other tobacco product, uncomplicated; Z71.6 Tobacco abuse counseling ==

== ENCOUNTER → 2018-10-08 | Outpatient (CLI) | payer MEDICARE, MEDICAID | END | disposition home or self-care (01) | LOC: WOUNDCARE 09-26 11:31 | DX: E11.622 Type 2 diabetes mellitus with other skin ulcer (principal); L89.154 Pressure ulcer of sacral region, stage 4; L98.491 Non-pressure chronic ulcer of skin of other sites limited to breakdown of skin; E11.69 Type 2 diabetes mellitus with other specified complication; M86.68 Other chronic osteomyelitis, other site; E11.51 Type 2 diabetes mellitus with diabetic peripheral angiopathy without gangrene; N48.5 Ulcer of penis; F17.290 Nicotine dependence, other tobacco product, uncomplicated; Z71.6 Tobacco abuse counseling ==

== ENCOUNTER → 2018-10-09 | Outpatient (CLI) | payer MEDICARE, MEDICAID | END | disposition home or self-care (01) | LOC: WOUNDCARE 02:32 | DX: E11.622 Type 2 diabetes mellitus with other skin ulcer (principal); L89.154 Pressure ulcer of sacral region, stage 4; L98.491 Non-pressure chronic ulcer of skin of other sites limited to breakdown of skin; E11.69 Type 2 diabetes mellitus with other specified complication; M86.68 Other chronic osteomyelitis, other site; E11.51 Type 2 diabetes mellitus with diabetic peripheral angiopathy without gangrene; N48.5 Ulcer of penis; F17.290 Nicotine dependence, other tobacco product, uncomplicated; Z71.6 Tobacco abuse counseling ==

== ENCOUNTER → 2018-10-10 | Outpatient (CLI) | payer MEDICARE, MEDICAID | END | disposition home or self-care (01) | LOC: WOUNDCARE 01:22 | DX: E11.622 Type 2 diabetes mellitus with other skin ulcer (principal); L89.154 Pressure ulcer of sacral region, stage 4; L98.491 Non-pressure chronic ulcer of skin of other sites limited to breakdown of skin; E11.69 Type 2 diabetes mellitus with other specified complication; M86.68 Other chronic osteomyelitis, other site; E11.51 Type 2 diabetes mellitus with diabetic peripheral angiopathy without gangrene; N48.5 Ulcer of penis; F17.290 Nicotine dependence, other tobacco product, uncomplicated; Z71.6 Tobacco abuse counseling ==

== ENCOUNTER → 2018-10-15 | Outpatient (CLI) | payer MEDICARE, MEDICAID | END | disposition home or self-care (01) | LOC: WOUNDCARE 04:56 | DX: E11.622 Type 2 diabetes mellitus with other skin ulcer (principal); L89.154 Pressure ulcer of sacral region, stage 4; L98.491 Non-pressure chronic ulcer of skin of other sites limited to breakdown of skin; E11.69 Type 2 diabetes mellitus with other specified complication; E11.51 Type 2 diabetes mellitus with diabetic peripheral angiopathy without gangrene; M86.68 Other chronic osteomyelitis, other site; N48.5 Ulcer of penis; F17.290 Nicotine dependence, other tobacco product, uncomplicated; Z71.6 Tobacco abuse counseling ==

== ENCOUNTER → 2018-10-16 | Outpatient (CLI) | payer MEDICARE, MEDICAID | END | disposition home or self-care (01) | LOC: WOUNDCARE 02:24 | DX: E11.622 Type 2 diabetes mellitus with other skin ulcer (principal); L89.154 Pressure ulcer of sacral region, stage 4; L98.491 Non-pressure chronic ulcer of skin of other sites limited to breakdown of skin; E11.69 Type 2 diabetes mellitus with other specified complication; M86.68 Other chronic osteomyelitis, other site; E11.51 Type 2 diabetes mellitus with diabetic peripheral angiopathy without gangrene; N48.5 Ulcer of penis; F17.290 Nicotine dependence, other tobacco product, uncomplicated; Z71.6 Tobacco abuse counseling ==

== ENCOUNTER → 2018-10-17 | Outpatient (CLI) | payer MEDICARE, MEDICAID | END | disposition home or self-care (01) | LOC: WOUNDCARE 04:12 | DX: E11.622 Type 2 diabetes mellitus with other skin ulcer (principal); L89.154 Pressure ulcer of sacral region, stage 4; L98.491 Non-pressure chronic ulcer of skin of other sites limited to breakdown of skin; E11.69 Type 2 diabetes mellitus with other specified complication; M86.68 Other chronic osteomyelitis, other site; E11.51 Type 2 diabetes mellitus with diabetic peripheral angiopathy without gangrene; N48.5 Ulcer of penis; F17.290 Nicotine dependence, other tobacco product, uncomplicated; Z71.6 Tobacco abuse counseling ==

== ENCOUNTER → 2018-10-18 | Outpatient (CLI) | payer MEDICARE, MEDICAID | END | disposition home or self-care (01) | LOC: WOUNDCARE 01:33 | DX: E11.622 Type 2 diabetes mellitus with other skin ulcer (principal); L89.154 Pressure ulcer of sacral region, stage 4; L98.491 Non-pressure chronic ulcer of skin of other sites limited to breakdown of skin; E11.69 Type 2 diabetes mellitus with other specified complication; M86.68 Other chronic osteomyelitis, other site; E11.51 Type 2 diabetes mellitus with diabetic peripheral angiopathy without gangrene; N48.5 Ulcer of penis; F17.290 Nicotine dependence, other tobacco product, uncomplicated; Z71.6 Tobacco abuse counseling ==

== ENCOUNTER → 2018-10-25 | Outpatient (CLI) | payer MEDICARE, MEDICAID ==
[~2018-10-25] MED LIST changes: +BACLOFEN5 MG PO; +KLONOPIN1 M1 PO; +METFORMIN HYD1000 MG PO; +OXYCODONE HYDRO10 M2 PO; +ZYVOX600 MG PO
== END | disposition home or self-care (01) ==
LOC: WOUNDCARE 04:01
DX: E11.622 Type 2 diabetes mellitus with other skin ulcer (principal); L89.154 Pressure ulcer of sacral region, stage 4; L98.491 Non-pressure chronic ulcer of skin of other sites limited to breakdown of skin; E11.69 Type 2 diabetes mellitus with other specified complication; M86.68 Other chronic osteomyelitis, other site; E11.51 Type 2 diabetes mellitus with diabetic peripheral angiopathy without gangrene; N48.5 Ulcer of penis; F17.290 Nicotine dependence, other tobacco product, uncomplicated; Z71.6 Tobacco abuse counseling

== ENCOUNTER → 2018-10-31 | Outpatient (CLI) | payer MEDICARE, MEDICAID ==
[~2018-10-31] MED LIST changes: +AMLODIPINE BESYL5 MG PO; +POTASSIUM CHLO10 ME4 PO
== END | disposition home or self-care (01) ==
LOC: WOUNDCARE 02:59
DX: E11.622 Type 2 diabetes mellitus with other skin ulcer (principal); L89.154 Pressure ulcer of sacral region, stage 4; L98.491 Non-pressure chronic ulcer of skin of other sites limited to breakdown of skin; E11.69 Type 2 diabetes mellitus with other specified complication; M86.68 Other chronic osteomyelitis, other site; E11.51 Type 2 diabetes mellitus with diabetic peripheral angiopathy without gangrene; N48.5 Ulcer of penis; F17.200 Nicotine dependence, unspecified, uncomplicated; Z71.6 Tobacco abuse counseling

== ENCOUNTER → 2018-11-01 | Outpatient (CLI) | payer MEDICARE, MEDICAID | END | disposition home or self-care (01) | LOC: WOUNDCARE 02:02 | DX: E11.622 Type 2 diabetes mellitus with other skin ulcer (principal); L89.154 Pressure ulcer of sacral region, stage 4; L98.491 Non-pressure chronic ulcer of skin of other sites limited to breakdown of skin; E11.69 Type 2 diabetes mellitus with other specified complication; M86.68 Other chronic osteomyelitis, other site; E11.51 Type 2 diabetes mellitus with diabetic peripheral angiopathy without gangrene; N48.5 Ulcer of penis; F17.200 Nicotine dependence, unspecified, uncomplicated; Z71.6 Tobacco abuse counseling ==

== ENCOUNTER → 2018-11-04 | Outpatient (CLI) | payer MEDICARE, MEDICAID ==
[~2018-11-04] MED LIST changes: -AMLODIPINE BESYL5 MG PO; -POTASSIUM CHLO10 ME4 PO
== END | disposition home or self-care (01) ==
LOC: WOUNDCARE 03:38
DX: E11.622 Type 2 diabetes mellitus with other skin ulcer (principal); L89.154 Pressure ulcer of sacral region, stage 4; E11.69 Type 2 diabetes mellitus with other specified complication; M86.68 Other chronic osteomyelitis, other site; E11.51 Type 2 diabetes mellitus with diabetic peripheral angiopathy without gangrene; N48.5 Ulcer of penis; F17.290 Nicotine dependence, other tobacco product, uncomplicated; Z71.6 Tobacco abuse counseling

== ENCOUNTER 2018-11-13 10:13 | Inpatient (IN) | payer MEDICARE, MEDICAID ==
[~2018-11-13] VITALS: Ht 185.4 cm; Wt 77.1 kg
[2018-11-13] VITALS (10 sets, daily range): BP systolic 80–112; BP diastolic 42–62
--- NOTE | ~2018-11-13 | EKG ---
[place], [place] ELECTROCARDIOGRAM REPORT NAME: SHI CAMPOS UNIT #: [id number] ROOM: 531 DOCTOR: HAWA DRAFT REPORT BIRTHDATE: [birth year] [facility] Test Date: 2018-11-13 Test Time: 13:48:23 Pat Name: SHI CAMPOS Department: Room: 531 Gender: M Luggage Maker: Ansley Couch : 1965 Requested By: JOSTIN CHOPRA Order Number: [id number] Reading MD: Lima Alonso MD Measurements Intervals [place] Rate: 44 P: 44 GA: 158 QRS: 22 QRSD: 95 T: 53 QT: 495 QTc: 424 Interpretive Statements Sinus bradycardia Compared to ECG 11/13/2018 10:38:37 Sinus rhythm no longer present Electronically Signed On 11-14-2018 16:15:38 PST by Lima Alonso MD CM:EKGRPT:ELECTROCARDIOGRAM REPORT 1348 1615 JOSTIN OMALLEY DRAFT REPORT JOSTIN CHOPRA DO
--- NOTE | ~2018-11-13 | EKG ---
[place], [place] ELECTROCARDIOGRAM REPORT NAME: SHI CAMPOS UNIT #: [id number] ROOM: 531 DOCTOR: HAWA DRAFT REPORT BIRTHDATE: [birth year] [facility] Test Date: 2018-11-13 Test Time: 16:30:39 Pat Name: SHI CAMPOS Department: Room: 531 Gender: M Area Representative: Ansley Couch : 1965 Requested By: JOSTIN CHOPRA Order Number: [id number] Reading MD: Lima Alonso MD Measurements Intervals [place] Rate: 56 P: 73 NC: 159 QRS: 17 QRSD: 94 T: 58 QT: 467 QTc: 451 Interpretive Statements Sinus rhythm Borderline low voltage, extremity leads Compared to ECG 11/13/2018 10:38:37 No significant changes Electronically Signed On 11-14-2018 16:16:21 PST by Lima Alonso MD CM:EKGRPT:ELECTROCARDIOGRAM REPORT 1630 1616 JOSTIN OMALLEY DRAFT REPORT JOSTIN CHOPRA DO
--- NOTE | ~2018-11-13 | EKG ---
[place], [place] ELECTROCARDIOGRAM REPORT NAME: SHI CAMPOS UNIT #: [id number] ROOM: [facility] DOCTOR: HAWA DRAFT REPORT BIRTHDATE: [address] [facility] Test Date: 2018-11-13 Test Time: 10:38:37 Pat Name: SHI CAMPOS Department: Room: [facility] Gender: M Carbon Paper Interleafer: Ansley Couch : 1965 Requested By: LALA HAMILTON Order Number: [id number] Reading MD: Lima Alonso MD Measurements Intervals [place] Rate: 65 P: 48 TX: 140 QRS: -61 QRSD: 89 T: 70 QT: 435 QTc: 453 Interpretive Statements Sinus rhythm S1,S2,S3 pattern RSR' in V1 or V2, probably normal variant Baseline wander in lead(s) V1 Compared to ECG 09/12/2018 10:06:55 RSR' in V1 or V2 now present Electronically Signed On 11-13-2018 9:40:29 PST by Lima Alonso MD CM:EKGRPT:ELECTROCARDIOGRAM REPORT 1038 0940 LALA SHAIKH DRAFT REPORT LALA HAMILTON MD
[~2018-11-13 10:13] MED LIST changes: -BACLOFEN5 MG PO; -KLONOPIN1 M1 PO; -METFORMIN HYD1000 MG PO; -OXYCODONE HYDRO10 M2 PO; -ZYVOX600 MG PO
[2018-11-13 11:03] LABS: HEMATOCRIT 44.9 % (42.0-52.0); HEMOGLOBIN 14.9 g/dl (14.0-18.0); MEAN CELL VOLUME 79.8 fl (80.0-94.0); MEAN CORPUSCULAR HGB 26.5 pg (27.0-31.0); MEAN CORPUSCULAR HGB CONC 33.2 g/dl (33.0-37.0); PLATELET COUNT AUTOMATED 176 10*3/uL (130-400); RED BLOOD COUNT 5.63 10*6/uL (4.50-5.90); WHITE BLOOD COUNT 12.7 10*3/uL (4.8-10.8)
[2018-11-13 11:07] LABS: ACT PARTIAL THROMBO TIME 27.1 SECONDS (20.8-31.5)
[2018-11-13 11:09] LABS: ALBUMIN 3.8 gm/dl (3.1-4.5); ALKALINE PHOSPHATASE 87 U/L (45-117); BUN 34 mg/dl (7-24); CHLORIDE 103 mmol/L (98-107); CREATININE 2.58 mg/dL (0.70-1.30); POTASSIUM 3.6 mmol/L (3.5-5.1); SGOT/AST 17 IU/L (3-35); SGPT/ALT 19 U/L (12-78); SODIUM 136 mmol/L (136-145); TOTAL PROTEIN 7.9 gm/dL (6.4-8.2)
[2018-11-13 11:10] LABS: TROPONIN I < 0.015 ng/ml (<0.045)
[2018-11-13 11:35] LABS: MICROCYTOSIS SLIGHT; TOTAL CELLS COUNTED 100 #CELLS
[2018-11-13 11:36] LABS: PLATELET SUFFICIENCY NORMAL (NORMAL)
[2018-11-13 12:37] LABS: BILIRUBIN 2+ (NEGATIVE); BLOOD 3+ (NEGATIVE); CLARITY SL CLOUDY (CLEAR); COLOR YELLOW (YELLOW); GLUCOSE NEGATIVE (NEGATIVE); KETONE 1+ (NEGATIVE); LEUKO ESTERASE 2+ (NEGATIVE); NITRITE NEGATIVE (NEGATIVE); SPECIFIC GRAVITY >= 1.030 (1.005-1.030); UROBILINOGEN 0.2 E.U./dl (0.2-1.0)
--- NOTE | 2018-11-13 12:40 | NUR ---
A 53, admitted to ICCU, under the services of KE Miranda DO with a diagnosis of JENNIFER, SEPSIS, HYPOTENSION. Chief complaint is COUGH X 3 DAYS , WENT TO WOUND CLINIC TODAY WHERE THEY TOLD HIM HIS BLOOD PRESSURE WAS LOW AND SENT HIM TO ER, HYPOTENSIVE ON ARRIVAL AND ADMISSION WAS ADVISED. Patient arrived via stretcher from ER. Monitor applied. Initial assessment completed. Vital signs taken and recorded. DR. WETZEL WAS PRESENT ON PT. ARRIVAL , Did full evaulation and orders were recieved See assessment for past medical history, medications and allergies. Patient and/or family oriented to unit. [facility] ICCU visitation policy reviewed. Clothing/patient valuable form completed. PATRICK WILLSON
[2018-11-13 12:47] LABS: WBC TNTC wbc/hpf (0-5)
[2018-11-13 12:48] LABS: BACTERIA 1+; RBC 16-20 rbc/hpf (0-2)
[2018-11-13] MEDS ORDERED: KLONOPIN1 M1 PO (13:38)
[2018-11-13] MEDS ORDERED: METFORMIN HYD1000 MG PO (13:41)
[2018-11-13] MEDS ORDERED: PANTOPRAZOLE SO40 MG PO (13:42)
[2018-11-13] MEDS ORDERED: BACLOFEN5 MG PO (13:42)
[2018-11-13] MEDS ORDERED: OXYCODONE HYDRO10 M2 PO (15:03)
--- NOTE | 2018-11-13 15:57 | NUR ---
Dr. Agudelo was notified of consult. Will see pt. tomorrow.
--- NOTE | 2018-11-13 18:31 | NUR ---
1505 C/O PAIN TO BACK 06/07. Medicated 1830 States pain is at scale /10 effective to reduce chronic back pain.
--- NOTE | 2018-11-13 20:23 | NUR ---
1929 RESTING IN BED WITH HOB ELEVATED. SIDE RAILS UP X'S 2. CALL LIGHT IN REACH, ALERT. NO DSITRESS NOTED. NO C/O'S VOICED. IV FLUIDS CONT. PULSE OX 99% ON RA. SP DEE PATENT.
--- NOTE | 2018-11-13 22:46 | NUR ---
SPILLED DRINK ALL OVER BED. LINENS WET. UP TO CHAIR WHILE BED CHANGE DONE.
[2018-11-14] VITALS: BP 111/59
--- NOTE | 2018-11-14 00:11 | NUR ---
RESTING IN BED WATCHING TV. NO DISTRESS NOTED. BP 111/59.
[2018-11-14 04:00] VITALS: BP 108/56
--- NOTE | 2018-11-14 04:31 | NUR ---
RESTING IN BED WITH EYES CLOSED. APPEARS TO BE SLEEPING.
[2018-11-14 04:32] LABS: BASO % 0.3 % (0.0-1.0); EOS # 0.2 10*3/uL (0.0-0.4); EOS % 2.7 % (1.0-4.0); LYMPH # 1.9 10*3/uL (1.3-4.4); LYMPH % 29.9 % (27.0-41.0); MEAN CELL VOLUME 80.9 fl (80.0-94.0); MEAN CORPUSCULAR HGB 26.5 pg (27.0-31.0); MEAN CORPUSCULAR HGB CONC 32.7 g/dl (33.0-37.0); MEAN PLATELET VOLUME 12.9 fl (9.6-12.3); MONO # 0.7 10*3/uL (0.1-1.0); NEUT # 3.5 10*3/uL (2.3-7.9); NEUT % 55.6 % (47.0-73.0); RED BLOOD COUNT 4.23 10*6/uL (4.50-5.90); WHITE BLOOD COUNT 6.3 10*3/uL (4.8-10.8)
[2018-11-14 04:42] LABS: INTERNATIONAL NORM RATIO 0.9 (2.0-3.5)
[2018-11-14 05:01] LABS: HEMATOCRIT 34.2 % (42.0-52.0); HEMOGLOBIN 11.2 g/dl (14.0-18.0); PLATELET COUNT AUTOMATED 107 10*3/uL (130-400)
[2018-11-14 05:04] LABS: ALBUMIN 2.8 gm/dl (3.1-4.5); ALKALINE PHOSPHATASE 66 U/L (45-117); CHLORIDE 113 mmol/L (98-107); CHOLESTEROL 113 mg/dL (<200); CREATININE 1.06 mg/dL (0.70-1.30); FREE T4 1.15 ng/dl (0.76-1.46); HDL CHOLESTEROL 27 mg/dl (40-60); LDL CHOLESTEROL 65 mg/dL (9-159); PHOSPHOROUS 3.6 mg/dL (2.5-4.9); SGOT/AST 14 IU/L (3-35); SGPT/ALT 17 U/L (12-78); SODIUM 142 mmol/L (136-145); TOTAL PROTEIN 5.8 gm/dL (6.4-8.2); TRIGLYCERIDES 104 mg/dl (<150); VLDL CHOLESTEROL 21 mg/dL (6-40)
[2018-11-14 05:09] LABS: BUN 24 mg/dl (7-24)
--- NOTE | 2018-11-14 06:11 | NUR ---
REMAINS SLEEPING WITHOUT DISTRESS. IV FLUIDS CONT. NO DISTRESS NOTED. CONDITION GUARDED.
[2018-11-14 08:00] VITALS: BP 140/62
--- NOTE | 2018-11-14 08:05 | NUR ---
MEDICATED WITH OXYCODONE 10MG PO ORDERED FOR COMPLAINTS OF BACK PAIN. RATES PAIN A 8 ON A PAIN SCALE OF 1-10
[2018-11-14 08:07] LABS: VITAMIN D, 25-HYDROXY 34.6 ng/mL (30-100)
--- NOTE | 2018-11-14 10:30 | NUR ---
Fur Floor Worker in to talk to patient. Patient states lives at home with his and son. There are 2 steps in the home. Physician: Goyo Celaya [facility]: [facility] health services: currently has [facility] RN/PT Patient's level of ADLs: MINIMAL ASSIST Patient has working utilities: yes DME: seated walker, RLE brace Follow-up physician's appointment after d/c: will be made by the hospitalist nurse director upon discharge Does patient want to access PORTAL?: no Discharge plan discussed with patient. He lives at home with his and son. he is independent in his ADLs and ambulates with a seated walker. Discussed home health care services and he currently has [facility] RN/PT and would like to resume those services upon discharge. When medically stable he will be discharged to home with the resumption of his home health services. PRASAD MARTIN
[2018-11-14 12:00] VITALS: BP 109/38
--- NOTE | 2018-11-14 12:00 | NUR ---
DR. SMITH HERE TO SEE PATIENT ON CONSULT
--- NOTE | 2018-11-14 12:35 | NUR ---
SHI CAMPOS [id number] Please refer to the physician's history and physical for past medical history, comorbid conditions, and allergies. Diagnosis: ACUTE KIDNEY INJURY SEPTIC SHOCK HYPOTENSION Fernando Score: 17,AT RISK WOUND DESCRIPTIONS: Location of the wound: coccyx Type of wound: stage 4 Thickness: Full Size: 1.7cm x 1.2cm x 2.8cm Tunneling: none Undermining: none Sinus Tract: none Presence of Exudate: Serosanguineous Amount: Light Color: Red, yellow, white Odor: Foul Periwound Skin Appearance: Erythema Wound edges: epibole Pain (associated with wound): none at time of assessment How does patient state this happened? pt stated he has been dealing with this for quite sometime now Location of the wound: right 2nd toe Thickness: Full Size: 0.7cm x 0.7cm x <0.1cm Tunneling: none Undermining: none Sinus Tract: none Presence of Exudate: none Amount: None Color: Brown Odor: None Periwound Skin Appearance: Normal Wound edges: closed Pain (associated with wound): none at time of assessment How does patient state this happened? pt stated ripped his toenail off Location of the wound: right 3rd toe Type of wound: DTI Thickness: Full Size: 0.7cm x 0.7cm x <0.1cm Tunneling: none Undermining: none Sinus Tract: none Presence of Exudate: none Amount: None Color: dark purple, red Odor: None Periwound Skin Appearance: Normal Wound edges: intact blood filled blister Pain (associated with wound): none at time of assessment How does patient state this happened? pt stated it from his shoes rubbing Surface the patient is resting on: Position Pro SKIN PREVENTION RECOMMENDATION: 1. Pressure redistribution support surface as appropriate 2. Elevate heels 3. Remove boots/TEDS every shift and reapply 4. Head of bed 30 degrees as tolerated 5. Assess nutrition and hydration 6. Manage moisture 7. Avoid the use of containment devices while in bed 8. Use absorptive products on surfaces limit layers of linens on bed 9. Turn and reposition every 1-2 hours in bed and every 1 hour in chair as tolerated 10. Weight shifts every 15 minutes while up in chair 11. Offloading with pillows or device to keep heels elevated off bed 12. Monitor skin at least every shift 13. Inspect under medical devices twice a day WOUND TREATMENT RECOMMENDATIONS: Spoke with Dr. Agudelo he said to continue wet to dry dressing to coccyx. Wheelchair cushion when oob. DTI guidelines: Apply sureprep to right 3rd toe and cover with bandaid. Full thickness guideline: Cleanse right 2nd toe with nss and apply sureprep around the wound therahoney to wound bed and cover with bandaid. Heel raiser pro boots while in bed.
--- NOTE | 2018-11-14 13:00 | NUR ---
TRANSFERRED TO ROOM 531 VIA BED. REPORT CALLED TO KIMBER JO
--- NOTE | 2018-11-14 13:33 | NUR ---
Follow up with Dr. Agudelo in wound care clinic on 11/21/18 at 11:30am, call [phone] with any concerns
[2018-11-14 16:00] VITALS: BP 104/51
[2018-11-14 20:00] VITALS: BP 141/72
[2018-11-15] VITALS: BP 116/60
[2018-11-15 06:27] LABS: BUN 15 mg/dl (7-24); CHLORIDE 111 mmol/L (98-107); CREATININE 0.92 mg/dL (0.70-1.30); SODIUM 143 mmol/L (136-145)
[2018-11-15] MEDS ORDERED: OXYCODONE HYDRO10 M2 PO (07:18)
[2018-11-15] MEDS ORDERED: ZYVOX600 MG PO (08:01)
--- NOTE | 2018-11-15 09:31 | NUR ---
Automotive Product Engineer in to see patient. Discussed home antibiotics on discharge. Spoke to pharmacist at [facility] and Zyvox would require a preauth. Zyvox here at the hospital pharmacy will be approximately $4. Patient informed. He has $1 on him and asked his to bring at least $3 more. Asked patient to notify CM when arrives and he verbalized an understanding.
--- NOTE | 2018-11-15 10:14 | NUR ---
WOUND PICS/MEASURESMENT TAKEN BY WOUND CARE NURSEMARIO FOR DISCHARGE . THIS NURSE DID NOT VIEW WOUNDS FOR DISCHARGE PER PT REQUEST.
--- NOTE | 2018-11-15 10:15 | NUR ---
Discharge instructions reviewed with patient/family. Patient receptive and verbalizes understanding. Follow-up care arranged. Written instructions given to patient/family. MAICOL HERRERA
--- NOTE | 2018-11-15 11:11 | NUR ---
Faxed resume [facility] order to resume HHC as previous to admission.
== END 2018-11-15 10:15 | disposition home health service (06) | DRG 871 ==
LOC: ED 10:13 → ICCU 12:08 → EDHOLD 12:08 → ICCU 12:09 → 5E 11-14 13:12
PROVIDERS: Emergency Medicine; Internal Medicine; Student in an Organized Health Care Education/Training Program; ADMIT Internal Medicine
DX: A41.9 Sepsis, unspecified organism (principal); L89.154 Pressure ulcer of sacral region, stage 4; N17.0 Acute kidney failure with tubular necrosis; R65.21 Severe sepsis with septic shock; T83.510A Infection and inflammatory reaction due to cystostomy catheter, initial encounter; N39.0 Urinary tract infection, site not specified; E44.0 Moderate protein-calorie malnutrition; E86.0 Dehydration; B96.89 Other specified bacterial agents as the cause of diseases classified elsewhere; Z16.21 Resistance to vancomycin; Y83.8 Other surgical procedures as the cause of abnormal reaction of the patient, or of later complication, without mention of misadventure at the time of the procedure; T14.8XXA Other injury of unspecified body region, initial encounter; L08.9 Local infection of the skin and subcutaneous tissue, unspecified; J06.9 Acute upper respiratory infection, unspecified; E11.65 Type 2 diabetes mellitus with hyperglycemia; I10 Essential (primary) hypertension; M54.30 Sciatica, unspecified side; F12.10 Cannabis abuse, uncomplicated; E78.5 Hyperlipidemia, unspecified; F32.9 Major depressive disorder, single episode, unspecified; E11.42 Type 2 diabetes mellitus with diabetic polyneuropathy; Z96.642 Presence of left artificial hip joint; Z96.641 Presence of right artificial hip joint; F17.210 Nicotine dependence, cigarettes, uncomplicated; L89.610 Pressure ulcer of right heel, unstageable; I95.89 Other hypotension; E11.51 Type 2 diabetes mellitus with diabetic peripheral angiopathy without gangrene; M48.00 Spinal stenosis, site unspecified; M51.37 Other intervertebral disc degeneration, lumbosacral region; R26.2 Difficulty in walking, not elsewhere classified; G89.29 Other chronic pain; M54.9 Dorsalgia, unspecified; F41.9 Anxiety disorder, unspecified; M85.80 Other specified disorders of bone density and structure, unspecified site; D50.9 Iron deficiency anemia, unspecified; M21.371 Foot drop, right foot; K21.9 Gastro-esophageal reflux disease without esophagitis; G25.81 Restless legs syndrome; E53.8 Deficiency of other specified B group vitamins; E55.9 Vitamin D deficiency, unspecified; E87.8 Other disorders of electrolyte and fluid balance, not elsewhere classified; D64.9 Anemia, unspecified; Y92.89 Other specified places as the place of occurrence of the external cause; Z71.6 Tobacco abuse counseling; Z88.2 Allergy status to sulfonamides; Z82.49 Family history of ischemic heart disease and other diseases of the circulatory system; Z88.8 Allergy status to other drugs, medicaments and biological substances; Z98.1 Arthrodesis status; Z79.899 Other long term (current) drug therapy; Z68.24 Body mass index [BMI] 24.0-24.9, adult

== ENCOUNTER → 2018-11-13 | Outpatient (CLI) | payer MEDICARE, MEDICAID ==
[2018-11-13 09:40] LABS: HEMATOCRIT 47.2 % (42.0-52.0); MEAN CELL VOLUME 80.5 fl (80.0-94.0); MEAN CORPUSCULAR HGB 25.6 pg (27.0-31.0); MEAN CORPUSCULAR HGB CONC 31.8 g/dl (33.0-37.0); PLATELET COUNT AUTOMATED 193 10*3/uL (130-400); RED BLOOD COUNT 5.86 10*6/uL (4.50-5.90); RED CELL DISTRI WIDTH 17.4 % (0-14.5)
[2018-11-13 09:57] LABS: POTASSIUM 3.3 mmol/L (3.5-5.1)
[2018-11-13 10:06] LABS: ALBUMIN 4.1 gm/dl (3.1-4.5); CREATININE 2.41 mg/dL (0.70-1.30); TOTAL PROTEIN 8.6 gm/dL (6.4-8.2)
== END | disposition home or self-care (01) ==
LOC: LAB 08:41
PROVIDERS: Registered Nurse Flight
DX: I12.9 Hypertensive chronic kidney disease with stage 1 through stage 4 chronic kidney disease, or unspecified chronic kidney disease (principal); E11.22 Type 2 diabetes mellitus with diabetic chronic kidney disease; N18.9 Chronic kidney disease, unspecified; E55.9 Vitamin D deficiency, unspecified

== ENCOUNTER → 2018-12-03 | Outpatient (CLI) | payer MEDICARE, MEDICAID ==
[~2018-12-03] MED LIST changes: +BACLOFEN5 MG PO; +KLONOPIN1 M1 PO; +METFORMIN HYD1000 MG PO; +OXYCODONE HYDRO10 M2 PO; +ZYVOX600 MG PO
== END | disposition home or self-care (01) ==
LOC: WOUNDCARE 02:28
DX: E11.622 Type 2 diabetes mellitus with other skin ulcer (principal); L89.154 Pressure ulcer of sacral region, stage 4; L98.491 Non-pressure chronic ulcer of skin of other sites limited to breakdown of skin; E11.69 Type 2 diabetes mellitus with other specified complication; M86.68 Other chronic osteomyelitis, other site; E11.51 Type 2 diabetes mellitus with diabetic peripheral angiopathy without gangrene; F17.290 Nicotine dependence, other tobacco product, uncomplicated

== ENCOUNTER → 2018-12-10 | Outpatient (CLI) | payer MEDICARE, MEDICAID ==
[~2018-12-10] MED LIST changes: +AMLODIPINE BESYL5 MG PO; +POTASSIUM CHLO10 ME4 PO
== END | disposition home or self-care (01) ==
LOC: WOUNDCARE 00:40
DX: E11.622 Type 2 diabetes mellitus with other skin ulcer (principal); L89.154 Pressure ulcer of sacral region, stage 4; L98.491 Non-pressure chronic ulcer of skin of other sites limited to breakdown of skin; E11.51 Type 2 diabetes mellitus with diabetic peripheral angiopathy without gangrene; E11.69 Type 2 diabetes mellitus with other specified complication; M86.68 Other chronic osteomyelitis, other site; N48.5 Ulcer of penis; F17.290 Nicotine dependence, other tobacco product, uncomplicated

== ENCOUNTER → 2018-12-26 | Outpatient (CLI) | payer MEDICARE, MEDICAID | END | disposition home or self-care (01) | LOC: WOUNDCARE 01:23 | DX: E11.622 Type 2 diabetes mellitus with other skin ulcer (principal); L89.154 Pressure ulcer of sacral region, stage 4; L98.491 Non-pressure chronic ulcer of skin of other sites limited to breakdown of skin; E11.69 Type 2 diabetes mellitus with other specified complication; M46.28 Osteomyelitis of vertebra, sacral and sacrococcygeal region; F17.290 Nicotine dependence, other tobacco product, uncomplicated ==

== ENCOUNTER → 2019-01-02 | Outpatient (CLI) | payer MEDICARE, MEDICAID | END | disposition home or self-care (01) | LOC: WOUNDCARE 10:21 | DX: E11.622 Type 2 diabetes mellitus with other skin ulcer (principal); L89.154 Pressure ulcer of sacral region, stage 4; L98.491 Non-pressure chronic ulcer of skin of other sites limited to breakdown of skin; E11.69 Type 2 diabetes mellitus with other specified complication; M86.68 Other chronic osteomyelitis, other site; E11.51 Type 2 diabetes mellitus with diabetic peripheral angiopathy without gangrene; F17.290 Nicotine dependence, other tobacco product, uncomplicated ==

== ENCOUNTER → 2019-01-21 | Outpatient (CLI) | payer MEDICARE, MEDICAID | END | disposition home or self-care (01) | LOC: WOUNDCARE 00:15 | DX: E11.622 Type 2 diabetes mellitus with other skin ulcer (principal); L89.154 Pressure ulcer of sacral region, stage 4; L98.491 Non-pressure chronic ulcer of skin of other sites limited to breakdown of skin; E11.69 Type 2 diabetes mellitus with other specified complication; M86.68 Other chronic osteomyelitis, other site; E11.51 Type 2 diabetes mellitus with diabetic peripheral angiopathy without gangrene; N48.5 Ulcer of penis; F17.200 Nicotine dependence, unspecified, uncomplicated; Z71.6 Tobacco abuse counseling ==

== ENCOUNTER → 2019-04-01 | Outpatient (CLI) | payer MEDICARE | END | disposition home or self-care (01) | LOC: WOUNDCARE 02:37 | DX: E11.622 Type 2 diabetes mellitus with other skin ulcer (principal); L89.154 Pressure ulcer of sacral region, stage 4; L98.491 Non-pressure chronic ulcer of skin of other sites limited to breakdown of skin; E11.69 Type 2 diabetes mellitus with other specified complication; M86.68 Other chronic osteomyelitis, other site; E11.51 Type 2 diabetes mellitus with diabetic peripheral angiopathy without gangrene; F17.290 Nicotine dependence, other tobacco product, uncomplicated ==

== ENCOUNTER → 2019-04-10 | Outpatient (CLI) | payer MEDICARE | END | disposition home or self-care (01) | LOC: WOUNDCARE 01:04 | DX: E11.622 Type 2 diabetes mellitus with other skin ulcer (principal); L89.154 Pressure ulcer of sacral region, stage 4; L98.496 Non-pressure chronic ulcer of skin of other sites with bone involvement without evidence of necrosis; E11.69 Type 2 diabetes mellitus with other specified complication; M46.28 Osteomyelitis of vertebra, sacral and sacrococcygeal region; E11.51 Type 2 diabetes mellitus with diabetic peripheral angiopathy without gangrene; F17.290 Nicotine dependence, other tobacco product, uncomplicated ==

== ENCOUNTER 2019-06-04 14:22 | Inpatient (IN) | payer MEDICARE ==
[~2019-06-04] VITALS: Ht 180.3 cm; Wt 78.0 kg
[~2019-06-04 14:22] MED LIST changes: -AMLODIPINE BESYL5 MG PO; -POTASSIUM CHLO10 ME4 PO
[2019-06-04 14:23] VITALS: BP 156/127
[2019-06-04 15:05] LABS: BILIRUBIN NEGATIVE (NEGATIVE); BLOOD 3+ (NEGATIVE); CLARITY CLOUDY (CLEAR); COLOR YELLOW (YELLOW); GLUCOSE NEGATIVE (NEGATIVE); KETONE NEGATIVE (NEGATIVE); LEUKO ESTERASE 3+ (NEGATIVE); NITRITE POSITIVE (NEGATIVE); PH 6.5 (5.0-9.0); UROBILINOGEN 0.2 E.U./dl (0.2-1.0)
[2019-06-04 15:12] LABS: BASO % 0.2 % (0.0-1.0); EOS # 0.1 10*3/uL (0.0-0.4); EOS % 0.3 % (1.0-4.0); HEMOGLOBIN 12.1 g/dl (14.0-18.0); LYMPH # 1.1 10*3/uL (1.3-4.4); LYMPH % 6.2 % (27.0-41.0); MEAN CELL VOLUME 80.8 fl (80.0-94.0); MEAN CORPUSCULAR HGB 26.4 pg (27.0-31.0); MEAN CORPUSCULAR HGB CONC 32.7 g/dl (33.0-37.0); MEAN PLATELET VOLUME 12.8 fl (9.6-12.3); MONO % 5.3 % (3.0-9.0); NEUT # 15.8 10*3/uL (2.3-7.9); NEUT % 87.6 % (47.0-73.0); PLATELET COUNT AUTOMATED 145 10*3/uL (130-400); RED BLOOD COUNT 4.58 10*6/uL (4.50-5.90); RED CELL DISTRI WIDTH 16.4 % (0-14.5)
[2019-06-04 15:26] LABS: RBC TNTC rbc/hpf (0-2); WBC TNTC wbc/hpf (0-5)
[2019-06-04 15:34] LABS: ALBUMIN 3.4 gm/dl (3.1-4.5); CREATININE 1.62 mg/dL (0.70-1.30); POTASSIUM 3.9 mmol/L (3.5-5.1); TOTAL PROTEIN 7.2 gm/dL (6.4-8.2)
[2019-06-04 15:40] VITALS: BP 125/73
--- NOTE | 2019-06-04 15:47 | NUR ---
PT WITH PAIN RELIEF FROM MEDS "I FEEL ALOT BETTER WITH THAT MEDICINE" PER PT,MAJOR HAMPTON APRN- NOTIFIED.
[2019-06-04 16:47] VITALS: BP 136/64
--- NOTE | 2019-06-04 17:15 | NUR ---
PT W/O DISTRESS NOTED WITH MOTHER @ BEDSIDE,SAFETY PRECAUTIONS INTACT AND CALL LIGHT WITHIN REACH,NO ADDITIONAL COMPLAINTS VOICED.
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
[2019-06-04 18:00] VITALS: BP 129/79
--- NOTE | 2019-06-04 18:41 | NUR ---
VANCOMYCIN TO FLOOR.
--- NOTE | 2019-06-04 18:49 | NUR ---
A 53, admitted to 5E, under the services of SHANTELL Yañez DO with a diagnosis of UTI, DECUBITIS ULCER, SEPSIS. Chief complaint is UTI. Patient arrived via stretcher from ER. Monitor applied. Initial assessment completed. Vital signs taken and recorded. SHANTELL YAÑEZ DO notified of admission to the unit. Orders received. See assessment for past medical history, medications and allergies. Patient and/or family oriented to unit. [address] visitation policy reviewed. Clothing/patient valuable form completed. KIMBER PUENTE
[2019-06-04] MEDS ORDERED: BACLOFEN5 MG PO (19:16)
[2019-06-04] MEDS ORDERED: AMLODIPINE BESYL5 MG PO (19:17)
[2019-06-04] MEDS ORDERED: POTASSIUM CHLO10 ME4 PO (19:18)
[2019-06-04] MEDS ORDERED: CLONAZEPAM1 MG PO (19:20)
[2019-06-04] MEDS ORDERED: CLONAZEPAM0.5 M2 PO (19:23)
[2019-06-04 20:00] VITALS: BP 117/57
--- NOTE | 2019-06-04 20:39 | NUR ---
PT MEDICATED WITH PRN MORPHINE FOR C/O PAIN RATED A 10/10. WILL MONITOR FOR EFFECTIVENESS.
[2019-06-05] VITALS: BP 145/97
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
--- NOTE | 2019-06-05 05:18 | NUR ---
PT REFUSING PICTURES OF FOREHEAD WOUND AT THIS TIME.
[2019-06-05 06:29] LABS: BASO % 0.2 % (0.0-1.0); EOS # 0.1 10*3/uL (0.0-0.4); EOS % 0.8 % (1.0-4.0); HEMATOCRIT 35.9 % (42.0-52.0); HEMOGLOBIN 11.8 g/dl (14.0-18.0); LYMPH % 8.8 % (27.0-41.0); MEAN CELL VOLUME 81.4 fl (80.0-94.0); MEAN CORPUSCULAR HGB 26.8 pg (27.0-31.0); MEAN CORPUSCULAR HGB CONC 32.9 g/dl (33.0-37.0); MEAN PLATELET VOLUME 13.5 fl (9.6-12.3); MONO # 0.7 10*3/uL (0.1-1.0); NEUT # 9.9 10*3/uL (2.3-7.9); NEUT % 83.9 % (47.0-73.0); PLATELET COUNT AUTOMATED 156 10*3/uL (130-400); RED BLOOD COUNT 4.41 10*6/uL (4.50-5.90); RED CELL DISTRI WIDTH 16.7 % (0-14.5); WHITE BLOOD COUNT 11.8 10*3/uL (4.8-10.8)
[2019-06-05 06:45] LABS: BUN 15 mg/dl (7-24); CHLORIDE 109 mmol/L (98-107); CREATININE 1.24 mg/dL (0.70-1.30); POTASSIUM 3.9 mmol/L (3.5-5.1); SODIUM 140 mmol/L (136-145)
[2019-06-05 06:53] LABS: ACT PARTIAL THROMBO TIME 31.4 SECONDS (20.0-32.1); INTERNATIONAL NORM RATIO 0.9 (2.0-3.5)
[2019-06-05 08:00] VITALS: BP 124/52; BP 146/73
[2019-06-05 08:36] LABS: VITAMIN D, 25-HYDROXY 25.7 ng/mL (30-100)
--- NOTE | 2019-06-05 08:42 | NUR ---
PHYSICAL THERAPY Nursing screen received and chart reviewed. Physical therapy referral received. Thank you. Stephany Shelton,PT,DPT.
--- NOTE | 2019-06-05 08:48 | NUR ---
Dr. Ochoa notified of wound care recommendations.
--- NOTE | 2019-06-05 09:51 | NUR ---
NORCO 5/325 MG GIVEN FOR C/O COCCYX PAIN,08/07.
--- NOTE | 2019-06-05 10:08 | NUR ---
PT REFUSED PT AT THIS TIME D/T C/O PAIN.
--- NOTE | 2019-06-05 10:09 | NUR ---
Occupational Therapy eval offered but patient declined stating he was "not feeling good." Per nursing he was just given medication for his pain. Will attempt OT eval at a later date. Nahum Butler S/OT Lynne Zhang OTR/l
--- NOTE | 2019-06-05 10:09 | NUR ---
PHYSICAL THERAPY Physical therapy evaluation attempted. Patient states, "I'm not feeling too good right now." Nurse reports patient was recently medicated for pain. Will try PT evaluation again at a later time/date. Thank you. Stephany Shelton,PT,DPT.
--- NOTE | 2019-06-05 11:18 | NUR ---
FIRST ATTEMPT TO REACH DR SAMUEL'S OFFICE, NO ANSWER.ATTEMPTED TO LEAVE MESSAGE WITH ANSWERING SERVICE BUT THEY REFUSED AT THIS TIME AND STATED THEY ONLY TAKE CALLS AFTER 4PM.
--- NOTE | 2019-06-05 11:21 | NUR ---
SECOND ATTEMPT TO REACH DR SAMUEL STILL UNSUCCESSFUL REATTEMPT AGAIN AT LATER TIME.
--- NOTE | 2019-06-05 11:32 | NUR ---
TIFFANIE spoke with the patient. The patient stated he lives at home with his and children. The patient stated there are 5 steps going into his home. The patient stated he uses a walker and wheelchair. The patient stated he tries to care for himself most of the time. When asked if he was able to bathe himself the patient stated that he needed a showerchair and that he has a tub/shower combination. When asked how the patient recieved his wound on his head he stated "I tripped over a phone wire". When asked how many times he has fallen in a day the patient stated "I don't know". When asked in the last 3 weeks how many times he has fallen he stated "I don't know, maybe 3". The patient was asked about his SNF history, he stated he was in [facility] for 6 months. The patient stated he came home 10/04/18. When asked if he would like to return he stated "I don't know". When asked if he would like [facility] he stated "I don't know". The patient asked the JOURNEY LINEMAN to contact his and have her call in because he was unable to call out to her using the [facility] phone. JOURNEY LINEMAN reached out to [place]. She stated she would be in to see the patient today. TIFFANIE reached out to [facility] in regards to a showerchair. They currently have 2 available for $14.99. The patient has been informed of this. -TIFFANIE Byrd
--- NOTE | 2019-06-05 11:37 | NUR ---
THIRD ATTEMPT TO NOTIFY DR LLOYD'S OFFICE ATTEMPTED AND UNABLE TO REACH PERSON OR VOICEMAIL. NOTIFIED DR WARREN. HE STATED HE WILL TOUCH BASE WITH THE RESIDENT WITH DR SAMUEL, DR ESPINO.
[2019-06-05 12:00] VITALS: BP 128/62
--- NOTE | 2019-06-05 12:40 | NUR ---
DR PAIGE AWARE OF CONSULT FOR POSSIBLE OSTEOMYLITIS OF SACRUM. SHE ROUNDED AND SEEN PT.
--- NOTE | 2019-06-05 12:51 | NUR ---
Caretaker in to talk to patient. Patient states lives at HOME with AND KIDS. There are FEW steps in the home. Physician: EDUARDO SORIA [facility]acy: [facility] Home health services: NONE Patient's level of ADLs: MODERATE ASSIST Patient has working utilities: YES DME: NONE Follow-up physician's appointment after d/c: WILL BE MADE BY HOSPITALIST NURSE DIRECTOR ON DISCHARGE. Does patient want to access PORTAL?: NO Discharge plan PT STATES HE LIVES AT HOME WITH HIS AND KIDS. PT STATES HE IS IN BED MOST OF THE TIME. HAS SACRAL WOUND WHICH IS SHOWING OSTEOMYLITIS. PT STATES HIS TRIES TO TAKE CARE OF HIM. PER NURSING PT TOLD THEM LAST NIGHT HE WANTED TO GO TO A SNF BUT WHEN I ASKED HIM HE STATES I DON'T KNOW. ALSO SAYS I DON'T KNOW TO HOME HEALTH. IS SUPPOSED TO COME IN THIS AFTERNOON. WILL TRY TO TALK TO HER WHEN SHE COMES IN ABOUT DISCHARGE PLANS. WILL CONTINUE TO FOLLOW. IRLANDA FELIZ
--- NOTE | 2019-06-05 13:25 | NUR ---
PHYSICAL THERAPY Physical therapy evaluation attempted. Patient refusing PT evaluation at this time, stating that he was "up all night and doesn't feel good." Will attempt PT evaluation another day. Thank you. Stephany Shelton,PT,DPT.
--- NOTE | 2019-06-05 13:25 | NUR ---
Occupational Therapy eval offered but patient declined stating, "I was up all night and I just don't feel good." Patient requested OT come back tomorrow. Will attempt OT eval at a later date. Nahum Butler S/OT Lynne Zhang OTR/L
[2019-06-05] MEDS ORDERED: OXYCODONE HCL10 M1 PO (14:09)
--- NOTE | 2019-06-05 15:31 | NUR ---
OXY 10 MG GIVEN FOR C/O SACRAL PAIN 08/07.
[2019-06-05 16:00] VITALS: BP 125/66
[2019-06-05 20:00] VITALS: BP 121/67
[2019-06-06] VITALS: BP 100/50
[2019-06-06 06:09] LABS: BASO % 0.5 % (0.0-1.0); EOS # 0.2 10*3/uL (0.0-0.4); EOS % 2.1 % (1.0-4.0); HEMATOCRIT 33.8 % (42.0-52.0); LYMPH # 1.6 10*3/uL (1.3-4.4); LYMPH % 19.1 % (27.0-41.0); MEAN CELL VOLUME 82.4 fl (80.0-94.0); MEAN CORPUSCULAR HGB 26.8 pg (27.0-31.0); MEAN CORPUSCULAR HGB CONC 32.5 g/dl (33.0-37.0); MONO # 0.8 10*3/uL (0.1-1.0); MONO % 9.5 % (3.0-9.0); NEUT # 5.8 10*3/uL (2.3-7.9); NEUT % 68.4 % (47.0-73.0); PLATELET COUNT AUTOMATED 145 10*3/uL (130-400); RED CELL DISTRI WIDTH 16.8 % (0-14.5); WHITE BLOOD COUNT 8.5 10*3/uL (4.8-10.8)
[2019-06-06 06:25] LABS: BUN 10 mg/dl (7-24); CHLORIDE 109 mmol/L (98-107); POTASSIUM 3.9 mmol/L (3.5-5.1); SODIUM 142 mmol/L (136-145)
--- NOTE | 2019-06-06 09:17 | NUR ---
Occupational Therapy evaluation completed on 5 with full eval to follow. Precautions include fall risk,IV UE, sacral decubitus ulcer w/ osteomyelitis, right foot drop with AFO, neuropathy both hands, supra pubic catheter, moderate complexity level [id number] via chart review, testing and evaluation.Patient is argumentative and anxious about catheter alignment when wearing hospital pants. He insists upon looping catheter over pull ups and again up over waist of pants then using velcro strap to strap to leg and would not allow any further education despite OTR continued trial and son's suggestion. Son assisted patient with AFO and shoes while patient was verbally aggressive with son and son in return to patient. Patient was inappropriate with student OT who was with OTR with suggestive verbal comments. OTR redirected patient. Recommend OT per POC and SNF v.s. home with family assist. Thank you. Lynne Zhang OTR/Bharti
--- NOTE | 2019-06-06 09:17 | NUR ---
PHYSICAL THERAPY Physical therapy evaluation complete. Full evaluation/details to follow. Moderate complexity (16659) evaluation per chart review and evaluation. Recommend PT address safe transfers, gait, balance, and LE strength per POC. Recommend discharge home with family and to continue outpatient PT services. Thank you. Stephany Shelton,PT,DPT.
--- NOTE | 2019-06-06 10:55 | NUR ---
SHIPPING AND RECEIVING WEIGHER went to speak to patient about discharge planning. SHIPPING AND RECEIVING WEIGHER opened the door from the main jeter as it was closed and a witnessed the patients son and a female exiting the bathroom closing the door behind them. The smell of cigarettes was potent. SHIPPING AND RECEIVING WEIGHER spoke with the patient about discharge plans. He stated he is unsure what he wants to do pending test results. He stated he was told he might have to be transferred to [place] for surgery. The patient stated "this is all to much at one time". SHIPPING AND RECEIVING WEIGHER told patient we would talk about it later on today. Patient was in agreeance. SHIPPING AND RECEIVING WEIGHER notified Lexa of the potent smell of cigarettes in the patients room. . -TIFFANIE Byrd
[2019-06-06 12:00] VITALS: BP 112/56
--- NOTE | 2019-06-06 12:07 | NUR ---
PT IS UNSURE WHAT HE WANTS TO DO ON DISCHARGE. WILL CONTINUE TO FOLLOW.
--- NOTE | 2019-06-06 12:16 | NUR ---
Nutritional Support Services Note: Pt was triggered for a nutrition consult dt decubitus ulcer. I tried to interview the patient yesterday 2 times, but he was asleep each time. I tried again today to interview pt (4x) but he is not in his room. Recommend Ensure TID to promote wound healing and improve his overall nutritional status. Home Márquez Cupola Repairer Dietitian
--- NOTE | 2019-06-06 15:32 | NUR ---
OXY 10 MG GIVEN FOR C/O SACRAL PAIN.06/07.
[2019-06-06 16:00] VITALS: BP 132/84
--- NOTE | 2019-06-06 16:00 | NUR ---
DRESSING CHANGE COMPLETED TO SUPRAPUBIC CATH SITE AND SACRAL WOUND PER PHYSICIAN ORDERS. REFUSED BAND-AID TO FOREHEAD SCAB.PT TOLERATED WELL. DR SAMUEL ROUNDED AND SEEN PT.
--- NOTE | 2019-06-06 16:22 | NUR ---
NOTIFIED DR SMITH PER DR SAMUEL'S REQUEST THAT SHE WOULD LIKE SUPRAPUBIC CATHETER CHANGED. DR SMITH WOULD "CHANGE CATH ON SUNDAY".
[2019-06-06 20:00] VITALS: BP 123/61
--- NOTE | 2019-06-06 21:55 | NUR ---
PATIENT MEDICATED WITH OXYCONTIN PER PATIENT REQUEST FOR C/O PAIN. RATED PAIN A 8-9/10 WITH 10 BEING THE WORST. SEE EMAR. REINFORCED USE OF CALL LIGHT.
[2019-06-07] VITALS: BP 139/68
--- NOTE | 2019-06-07 | NUR ---
PATIENT RESTING QUIETLY. NO FURTHER C/O VOICED.
--- NOTE | 2019-06-07 03:30 | NUR ---
24 HR chart check completed.
--- NOTE | 2019-06-07 05:20 | NUR ---
PATIENT MEDICATED WITH OXYCONTIN FOR C/O BACK/HIP PAIN . RATED PAIN A 8/10 WITH 10 BEING THE WORST. SEE EMAR. REINFORCED USE OF CALL LIGHT.
[2019-06-07 06:53] LABS: BASO % 0.6 % (0.0-1.0); EOS # 0.3 10*3/uL (0.0-0.4); EOS % 3.9 % (1.0-4.0); HEMATOCRIT 35.8 % (42.0-52.0); HEMOGLOBIN 11.3 g/dl (14.0-18.0); LYMPH # 1.9 10*3/uL (1.3-4.4); LYMPH % 29.8 % (27.0-41.0); MEAN CELL VOLUME 82.3 fl (80.0-94.0); MEAN CORPUSCULAR HGB CONC 31.6 g/dl (33.0-37.0); MEAN PLATELET VOLUME 13.2 fl (9.6-12.3); MONO # 0.7 10*3/uL (0.1-1.0); MONO % 10.8 % (3.0-9.0); NEUT # 3.5 10*3/uL (2.3-7.9); NEUT % 54.7 % (47.0-73.0); PLATELET COUNT AUTOMATED 130 10*3/uL (130-400); RED BLOOD COUNT 4.35 10*6/uL (4.50-5.90); RED CELL DISTRI WIDTH 16.7 % (0-14.5); WHITE BLOOD COUNT 6.4 10*3/uL (4.8-10.8)
[2019-06-07 07:02] LABS: BUN 15 mg/dl (7-24); CHLORIDE 109 mmol/L (98-107); CREATININE 0.79 mg/dL (0.70-1.30); POTASSIUM 4.1 mmol/L (3.5-5.1); SODIUM 141 mmol/L (136-145)
--- NOTE | 2019-06-07 10:29 | NUR ---
PHYSICAL THERAPY Attempted to see patient on multiple occasions this date-- patient in with nurse in which informed this therapist she would be awhile. Will check back prior to leaving. Nalini Vera, CROZE CUTTER HELPER
--- NOTE | 2019-06-07 11:12 | NUR ---
MEDICATED WITH PRN OXY-IR FOR LEFT HIP/LEG/LOWER BACK PAIN.
[2019-06-07 12:00] VITALS: BP 149/86
--- NOTE | 2019-06-07 13:00 | NUR ---
PRN OXY-IR WAS SOMEWHAT EFFECTIVE, PER PATIENT.
--- NOTE | 2019-06-07 13:14 | NUR ---
CHANGED PRICE DRAINAGE BAG D/T ORIGINAL BAG COMING APART WHEN OUTPUT >500ML IN BAG.
[2019-06-07 16:00] VITALS: BP 149/73
--- NOTE | 2019-06-07 17:57 | NUR ---
MEDICATED WITH PRN PO OXY-IR FOR LOW BACK PAIN.
[2019-06-07 20:00] VITALS: BP 161/69
--- NOTE | 2019-06-07 20:00 | NUR ---
SPOKE WITH DR. HOOVER REGARDING DR. KELLEY'S REQUEST FOR MRI.
--- NOTE | 2019-06-07 20:37 | NUR ---
SPOKE WITH DR. MELARA UPDATED HIM ON WHAT DR. HOOVER STATED REGARDING MRI. IF PATIENT WAS TO STAY SHE WANTED ONE, BUT IF PATIENT WOULD BE SENT OUT--IT WOULD NOT BE NECESSARY.
[2019-06-08] VITALS: BP 141/68
--- NOTE | 2019-06-08 | NUR ---
REPORT GIVEN TO TRAM JO AT [facility].
--- NOTE | 2019-06-08 00:32 | NUR ---
Discharge instructions sent with patient. Patient receptive and verbalizes understanding. [facility] here to transport patient to [facility]. Follow-up care arranged. Written instructions given to patient/ambulance personal belongings left at patient request for mother to pick up truck driver in am. patient did not want to lose his belongings in transport. BRENDA CUMMINGS
--- NOTE | 2019-06-08 00:36 | NUR ---
SPOKE WITH MOTHER. NOTIFIED PATIENT LEFT [facility]IA [facility]. STATED SHE WILL BE IN TOMORROW BETWEEN 8 AND 9 AM TO YARD CRANE OPERATOR PATIENT BELONGINGS.
--- NOTE | 2019-06-09 14:12 | NUR ---
PHYSICAL THERAPY CO-SIGN I approve of the Physical Therapy notes written above. PRASAD QUIÑONES PT,DPT
== END 2019-06-08 00:32 | disposition short-term general hospital (02) | DRG 871 ==
LOC: ED 14:22 → 5E 17:58 → EDHOLD 17:58 → 5E 18:55
PROVIDERS: Family Medicine; Internal Medicine; Nurse Practitioner Family; ADMIT Internal Medicine
DX: A41.9 Sepsis, unspecified organism (principal); N17.0 Acute kidney failure with tubular necrosis; E87.2 Acidosis; T83.510A Infection and inflammatory reaction due to cystostomy catheter, initial encounter; N39.0 Urinary tract infection, site not specified; M46.28 Osteomyelitis of vertebra, sacral and sacrococcygeal region; R65.20 Severe sepsis without septic shock; L98.422 Non-pressure chronic ulcer of back with fat layer exposed; L08.9 Local infection of the skin and subcutaneous tissue, unspecified; E11.40 Type 2 diabetes mellitus with diabetic neuropathy, unspecified; E11.65 Type 2 diabetes mellitus with hyperglycemia; M54.40 Lumbago with sciatica, unspecified side; G89.29 Other chronic pain; T14.8XXA Other injury of unspecified body region, initial encounter; M21.371 Foot drop, right foot; F41.9 Anxiety disorder, unspecified; F32.9 Major depressive disorder, single episode, unspecified; K21.9 Gastro-esophageal reflux disease without esophagitis; E78.5 Hyperlipidemia, unspecified; I10 Essential (primary) hypertension; E11.51 Type 2 diabetes mellitus with diabetic peripheral angiopathy without gangrene; Z96.642 Presence of left artificial hip joint; G25.81 Restless legs syndrome; Z96.643 Presence of artificial hip joint, bilateral; F17.210 Nicotine dependence, cigarettes, uncomplicated; D64.9 Anemia, unspecified; M48.00 Spinal stenosis, site unspecified; M85.80 Other specified disorders of bone density and structure, unspecified site; Y83.8 Other surgical procedures as the cause of abnormal reaction of the patient, or of later complication, without mention of misadventure at the time of the procedure; B96.4 Proteus (mirabilis) (morganii) as the cause of diseases classified elsewhere; B96.89 Other specified bacterial agents as the cause of diseases classified elsewhere; E11.69 Type 2 diabetes mellitus with other specified complication; Z82.49 Family history of ischemic heart disease and other diseases of the circulatory system; Z88.2 Allergy status to sulfonamides; Z88.8 Allergy status to other drugs, medicaments and biological substances; Z79.899 Other long term (current) drug therapy; Z79.84 Long term (current) use of oral hypoglycemic drugs; Y92.89 Other specified places as the place of occurrence of the external cause; Z86.14 Personal history of Methicillin resistant Staphylococcus aureus infection

== ENCOUNTER 2019-07-24 09:41 | Emergency (ER) | payer MEDICARE ==
[~2019-07-24] VITALS: Wt 71.7 kg
[~2019-07-24 09:41] MED LIST changes: +AMLODIPINE BESYL5 MG PO; +POTASSIUM CHLO10 ME4 PO
[2019-07-24 10:22] LABS: BASO % 0.4 % (0.0-1.0); EOS # 0.2 10*3/uL (0.0-0.4); EOS % 1.8 % (1.0-4.0); HEMATOCRIT 40.1 % (42.0-52.0); HEMOGLOBIN 13.1 g/dl (14.0-18.0); LYMPH # 1.8 10*3/uL (1.3-4.4); LYMPH % 16.9 % (27.0-41.0); MEAN CELL VOLUME 82.7 fl (80.0-94.0); MEAN CORPUSCULAR HGB CONC 32.7 g/dl (33.0-37.0); MONO # 0.8 10*3/uL (0.1-1.0); MONO % 7.5 % (3.0-9.0); NEUT # 7.8 10*3/uL (2.3-7.9); NEUT % 73.1 % (47.0-73.0); PLATELET COUNT AUTOMATED 185 10*3/uL (130-400); RED BLOOD COUNT 4.85 10*6/uL (4.50-5.90); RED CELL DISTRI WIDTH 16.5 % (0-14.5); WHITE BLOOD COUNT 10.7 10*3/uL (4.8-10.8)
[2019-07-24 10:28] LABS: BILIRUBIN NEGATIVE (NEGATIVE); BLOOD 1+ (NEGATIVE); CLARITY CLOUDY (CLEAR); COLOR YELLOW (YELLOW); GLUCOSE NEGATIVE (NEGATIVE); KETONE NEGATIVE (NEGATIVE); LEUKO ESTERASE 3+ (NEGATIVE); NITRITE POSITIVE (NEGATIVE); PH 7.5 (5.0-9.0)
[2019-07-24 10:37] LABS: ALBUMIN 3.5 gm/dl (3.1-4.5); ALKALINE PHOSPHATASE 83 U/L (45-117); BUN 17 mg/dl (7-24); CHLORIDE 108 mmol/L (98-107); CREATININE 0.93 mg/dL (0.70-1.30); POTASSIUM 3.7 mmol/L (3.5-5.1); SGOT/AST 6 IU/L (3-35); SGPT/ALT 12 U/L (12-78); SODIUM 142 mmol/L (136-145); TOTAL PROTEIN 7.2 gm/dL (6.4-8.2)
[2019-07-24 10:38] LABS: BACTERIA 3+; WBC TNTC wbc/hpf (0-5)
[2019-07-24 10:39] LABS: TRIP PHOS CRYSTALS 3+
[2019-07-24 12:35] VITALS: BP 130/71
[2019-07-24] MEDS ORDERED: CEPHALEXIN500 M1 PO (13:06)
[2019-07-25] MEDS ORDERED: KEFLEX500 M1 PO (14:26)
== END 2019-07-24 13:17 | disposition home or self-care (01) ==
LOC: ED 09:41
PROVIDERS: Physician Assistant
DX: T81.40XA Infection following a procedure, unspecified, initial encounter (principal); N39.0 Urinary tract infection, site not specified; F17.210 Nicotine dependence, cigarettes, uncomplicated; Z88.2 Allergy status to sulfonamides; Z88.6 Allergy status to analgesic agent; Z79.899 Other long term (current) drug therapy; Z98.890 Other specified postprocedural states; Y83.8 Other surgical procedures as the cause of abnormal reaction of the patient, or of later complication, without mention of misadventure at the time of the procedure; Y92.89 Other specified places as the place of occurrence of the external cause

== ENCOUNTER → 2019-08-15 | Outpatient (CLI) | payer MEDICARE ==
[~2019-08-15] MED LIST changes: +ATIVAN1 MG PO; +CEPHALEXIN500 M1 PO; +KEFLEX500 M1 PO
== END | disposition home or self-care (01) ==
LOC: RAD 11:00
DX: M43.16 Spondylolisthesis, lumbar region (principal); M85.88 Other specified disorders of bone density and structure, other site

== ENCOUNTER 2019-09-04 11:15 | Emergency (ER) | payer MEDICARE ==
[2019-09-04] VITALS (8 sets, daily range): BP systolic 150–154; BP diastolic 70–74
[~2019-09-04] VITALS: Ht 180.3 cm; Wt 69.4 kg
[~2019-09-04 11:15] MED LIST changes: -ATIVAN1 MG PO
[2019-09-04 12:41] LABS: HEMOGLOBIN 12.7 g/dl (14.0-18.0); MEAN CELL VOLUME 80.6 fl (80.0-94.0); MEAN CORPUSCULAR HGB 25.6 pg (27.0-31.0); MEAN CORPUSCULAR HGB CONC 31.8 g/dl (33.0-37.0); MEAN PLATELET VOLUME 12.9 fl (9.6-12.3); PLATELET COUNT AUTOMATED 203 10*3/uL (130-400); RED BLOOD COUNT 4.96 10*6/uL (4.50-5.90); WHITE BLOOD COUNT 24.1 10*3/uL (4.8-10.8)
[2019-09-04 12:47] LABS: BILIRUBIN NEGATIVE (NEGATIVE); BLOOD TRACE-INTACT (NEGATIVE); CLARITY SL CLOUDY (CLEAR); COLOR YELLOW (YELLOW); GLUCOSE NEGATIVE (NEGATIVE); KETONE NEGATIVE (NEGATIVE); LEUKO ESTERASE 2+ (NEGATIVE); NITRITE POSITIVE (NEGATIVE); SPECIFIC GRAVITY <= 1.005 (1.005-1.030); UROBILINOGEN 0.2 E.U./dl (0.2-1.0)
[2019-09-04 12:50] LABS: ALBUMIN 3.5 gm/dl (3.1-4.5); ALKALINE PHOSPHATASE 103 U/L (45-117); BUN 11 mg/dl (7-24); CHLORIDE 102 mmol/L (98-107); CREATININE 0.92 mg/dL (0.70-1.30); POTASSIUM 3.5 mmol/L (3.5-5.1); SGOT/AST 20 IU/L (3-35); SGPT/ALT 15 U/L (12-78); SODIUM 136 mmol/L (136-145)
[2019-09-04 12:55] LABS: BACTERIA 3+
[2019-09-04 12:57] LABS: ATYPICAL LYMPHS 2 % (0-0); PLATELET SUFFICIENCY NORMAL (NORMAL); SCHISTOCYTES FEW; TOTAL CELLS COUNTED 100 #CELLS
[2019-09-04 12:58] LABS: WBC 41-50 wbc/hpf (0-5)
[2019-09-04] MEDS ORDERED: ATIVAN1 MG PO (12:58)
== END 2019-09-04 19:15 | disposition short-term general hospital (02) ==
LOC: ED 11:15 → EDHOLD 14:51 → ED 19:15
PROVIDERS: Physician Assistant
DX: J44.1 Chronic obstructive pulmonary disease with (acute) exacerbation (principal); N39.0 Urinary tract infection, site not specified; D72.829 Elevated white blood cell count, unspecified; E11.9 Type 2 diabetes mellitus without complications; I10 Essential (primary) hypertension; F17.210 Nicotine dependence, cigarettes, uncomplicated; Z88.2 Allergy status to sulfonamides; Z88.8 Allergy status to other drugs, medicaments and biological substances; Z79.899 Other long term (current) drug therapy; Z96.0 Presence of urogenital implants

== ENCOUNTER → 2019-09-04 | Outpatient (CLI) | payer MEDICARE | END | disposition home or self-care (01) | LOC: CT 08-28 09:00 | DX: R41.3 Other amnesia (principal); R51 Headache ==

== ENCOUNTER 2019-10-21 21:26 | Inpatient (IN) | payer MEDICARE ==
[~2019-10-21] VITALS: Ht 180.3 cm; Wt 77.6 kg
[~2019-10-21 21:26] MED LIST changes: +ATIVAN1 MG PO
[2019-10-21 21:29] VITALS: BP 153/72
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
[2019-10-21 22:18] LABS: HEMATOCRIT 37.6 % (42.0-52.0); MEAN CELL VOLUME 83.6 fl (80.0-94.0); MEAN CORPUSCULAR HGB 26.7 pg (27.0-31.0); MEAN CORPUSCULAR HGB CONC 31.9 g/dl (33.0-37.0); MEAN PLATELET VOLUME 13.4 fl (9.6-12.3); PLATELET COUNT AUTOMATED 131 10*3/uL (130-400); RED CELL DISTRI WIDTH 17.2 % (0-14.5); WHITE BLOOD COUNT 8.7 10*3/uL (4.8-10.8)
[2019-10-21 22:18] LABS: BILIRUBIN NEGATIVE (NEGATIVE); BLOOD 2+ (NEGATIVE); CLARITY CLEAR (CLEAR); COLOR YELLOW (YELLOW); GLUCOSE NEGATIVE (NEGATIVE); KETONE NEGATIVE (NEGATIVE); LEUKO ESTERASE 1+ (NEGATIVE); NITRITE POSITIVE (NEGATIVE); UROBILINOGEN 0.2 E.U./dl (0.2-1.0)
[2019-10-21 22:25] LABS: RBC 21-30 rbc/hpf (0-2)
[2019-10-21 22:26] LABS: BACTERIA 1+
[2019-10-21 22:30] LABS: ALBUMIN 3.2 gm/dl (3.1-4.5); ALKALINE PHOSPHATASE 87 U/L (45-117); BUN 12 mg/dl (7-24); CHLORIDE 110 mmol/L (98-107); CREATININE 0.95 mg/dL (0.70-1.30); POTASSIUM 3.8 mmol/L (3.5-5.1); SGOT/AST 16 IU/L (3-35); SGPT/ALT 15 U/L (12-78); SODIUM 142 mmol/L (136-145); TOTAL PROTEIN 6.4 gm/dL (6.4-8.2)
[2019-10-21 22:31] LABS: URINE AMPHETAMINES > 1000 (1000ng/ml); URINE BARBITURATES < 200 (200ng/ml); URINE BENZODIAZEPINES < 200 (200ng/ml); URINE COCAINE > 300 (300ng/ml); URINE OPIATES > 300 (300ng/ml)
[2019-10-21 22:32] LABS: ACETAMINOPHEN (TYLENOL) < 5.0 ug/ml (10-30)
[2019-10-21 22:33] LABS: URINE CANNABINOIDS (THC) > 50 (50ng/ml); URINE METHADONE < 300 (300ng/ml); URINE PHENCYCLIDINE < 25 (25ng/ml)
[2019-10-21 22:38] LABS: THYROID STIM HORMONE (HS) 0.701 uIU/ml (0.358-4.75)
[2019-10-21 22:40] LABS: PLATELET SUFFICIENCY LOW (NORMAL); TOTAL CELLS COUNTED 100 #CELLS
[2019-10-21 22:41] LABS: ETHYL ALCOHOL < 3.0 mg/dl (<3)
--- NOTE | 2019-10-22 02:50 | NUR ---
PATIENT REFUSING TO REMOVE PANTS
[2019-10-22 07:30] VITALS: BP 142/68
--- NOTE | 2019-10-22 07:30 | NUR ---
PT NON-COMPLIANT WITH ASSESSMENT. REQUESTS LYRICA FOR NERVE PAIN. PROVIDER INFORMED.
--- NOTE | 2019-10-22 07:30 | NUR ---
PT REPORT ACCEPTED. AWAITING BED ASSIGNMENT ON ICU.
--- NOTE | 2019-10-22 08:06 | NUR ---
CHIP UNLOADER HERE AND DECLINES TO ACCEPT PT TO OUR B.H.U. INFORMATION GIVEN TO ME IN NURSE REPORT WAS THAT PT WAS BEING ADMITTED TO ICU. WILL FOLLOW UP WITH PROVIDER.
--- NOTE | 2019-10-22 08:45 | NUR ---
PT REFUSES MEAL TRAY. REQUESTS FLORENTINO. PROVIDER AWARE BUT MANY ISSUES CURRENTLY ONGOING IN DEPARTMENT HAVE TAKEN HIS ATTENTION.
--- NOTE | 2019-10-22 09:41 | NUR ---
PT REFUSES LOVENOX INJECTION. PT WAS REDIRECTED AT LEAST SIX TIMES ON THE REASON FOR THE ORDER OF THIS MED BUT HE REFUSES TO LISTEN TO MY EXPLANATION UNTIL A LYRICA DOSE IS PROVIDED. HE REFUSES THE LOVENOX AT THIS TIME. HE DOES NOW ACCEPT A MEAL TRAY ORDER. MULTIPLE CUPS OF WATER AND TEE NIR AND CRACKER AND PEANUT BUTTER PROVIDED UNTIL MEAL CAN COME.
--- NOTE | 2019-10-22 10:06 | NUR ---
PT NOW REQUESTS BACLOFEN 5MG, SINGULAIR UNK DOSE, K+ 10MEQ, MVI, KLONOPIN UNK DOSE. PROVIDER MADE AWARE. -- WOUND TO RIGHT FOOT WAS LEFT UNDRESSED, WOUND NOW DRESSED. ALSO, PT ADMITS THERE IS ANOTHER WOUND ON HIS COCCYX HE HAS HAD FOR SOME TIME THAT "NEEDS PACKED". I WILL ASSESS THIS WOUND AND PHOTOGRAPH IT NIGHT-SHIFT STATED PT HAD NO FURTHER WOUNDS. MY REPORT INDICATES THEY DID ASSESS AND PHOTOGRAPGH THE FOOT WOUND, HOWEVER.
[2019-10-22 10:11] VITALS: BP 116/68
--- NOTE | 2019-10-22 10:14 | NUR ---
NUMBER FOR REPORT AT [facility] [phone]. 7TH FLOOR #[phone].
--- NOTE | 2019-10-22 10:39 | NUR ---
ZANDRA CAMPOS, MOTHER, CELL #[phone]
--- NOTE | 2019-10-22 10:54 | NUR ---
COCCYX WOUND PHOTOGRAPGHED AND DOCUMENTED. PT REFUSES TO DISROBE HIS PANTS SO THESE WERE LEFT IN PLACE. WOUND DRESSING TO COCCYX ALSO LEFT IN PLACE AFTER PIC. VITALS STABLE. NURSING CAR PORTER REPORTS PT WILL REMAIN AND EDHOLD FOR THE FORESEEABLE FUTURE AND NOT BE TRANSPORTED TO ICCU. PT MADE AWARE. MULTIPLE MEDS NOW ADMINISTERED TO PT BASED ON HIS REQUESTS.
[2019-10-22 10:55] VITALS: BP 118/68
[2019-10-22 11:30] VITALS: BP 128/85
--- NOTE | 2019-10-22 11:45 | NUR ---
A 54, admitted to ICCU, under the services of MIKE Fontaine DO with a diagnosis of SECOND DEGREE ELLER TO RIGHT FOOT. Chief complaint is FOOT PAIN/DISCOMFORT. Patient arrived via bed from ER. Monitor applied. Initial assessment completed. Vital signs taken and recorded. MIKE FONTAINE DO notified of admission to the unit. Orders received. See assessment for past medical history, medications and allergies. Patient and/or family oriented to unit. [facility] ICCU visitation policy reviewed. Clothing/patient valuable form completed. DR. PAINTING IN TO SEE PATIENT AND DISCUSSED TRANSFER WITH PATIENT ORDERS RECEIVED. JOSE ENRIQUE VILLAFUERTE
--- NOTE | 2019-10-22 12:15 | NUR ---
DR. MELARA NOTIFIED THAT MED REC IS UP-TO-DATE. ORDERS RECEIVED.
--- NOTE | 2019-10-22 13:30 | NUR ---
DR. MELARA IN TO SEE PATIENT AND EVALUATE. PATIENT HAS BEEN ACCEPTED TO [facility] [address] BY DR. HANLEY.
--- NOTE | 2019-10-22 15:53 | NUR ---
krnlx-in-jdoud report given to SANDRO Polo at [facility].
[2019-10-22 16:00] VITALS: BP 106/84
--- NOTE | 2019-10-22 16:00 | NUR ---
patient taken off the floor by via stretcher by [facility]. patient envelope sent with [facility].
== END 2019-10-22 16:00 | disposition short-term general hospital (02) | DRG 935 ==
LOC: ED 21:26 → EDHOLD 10-22 00:40 → ICCU 10-22 11:26
PROVIDERS: Emergency Medicine; ADMIT Internal Medicine
DX: T25.221A Burn of second degree of right foot, initial encounter (principal); R45.851 Suicidal ideations; E44.0 Moderate protein-calorie malnutrition; E87.8 Other disorders of electrolyte and fluid balance, not elsewhere classified; E11.65 Type 2 diabetes mellitus with hyperglycemia; I10 Essential (primary) hypertension; M54.30 Sciatica, unspecified side; E78.5 Hyperlipidemia, unspecified; M48.00 Spinal stenosis, site unspecified; M54.9 Dorsalgia, unspecified; F41.9 Anxiety disorder, unspecified; M21.371 Foot drop, right foot; K21.9 Gastro-esophageal reflux disease without esophagitis; L98.429 Non-pressure chronic ulcer of back with unspecified severity; D64.9 Anemia, unspecified; F17.210 Nicotine dependence, cigarettes, uncomplicated; F32.9 Major depressive disorder, single episode, unspecified; E11.42 Type 2 diabetes mellitus with diabetic polyneuropathy; E11.51 Type 2 diabetes mellitus with diabetic peripheral angiopathy without gangrene; M51.37 Other intervertebral disc degeneration, lumbosacral region; G89.29 Other chronic pain; F19.10 Other psychoactive substance abuse, uncomplicated; Z71.6 Tobacco abuse counseling; Z88.6 Allergy status to analgesic agent; Z88.2 Allergy status to sulfonamides; Z96.643 Presence of artificial hip joint, bilateral; Z82.49 Family history of ischemic heart disease and other diseases of the circulatory system; Z98.1 Arthrodesis status; Z68.23 Body mass index [BMI] 23.0-23.9, adult; Y93.89 Activity, other specified; Y92.89 Other specified places as the place of occurrence of the external cause; Y99.8 Other external cause status; X11.0XXA Contact with hot water in bath or tub, initial encounter

== ENCOUNTER 2019-12-17 12:56 | Emergency (ER) | payer MEDICARE ==
[~2019-12-17] VITALS: Ht 180.3 cm; Wt 72.6 kg
[2019-12-17 12:59] VITALS: BP 137/56
[2019-12-17 14:05] LABS: HEMATOCRIT 36.5 % (42.0-52.0); HEMOGLOBIN 11.2 g/dl (14.0-18.0); MEAN CELL VOLUME 83.9 fl (80.0-94.0); MEAN CORPUSCULAR HGB 25.7 pg (27.0-31.0); MEAN CORPUSCULAR HGB CONC 30.7 g/dl (33.0-37.0); MEAN PLATELET VOLUME 13.5 fl (9.6-12.3); PLATELET COUNT AUTOMATED 159 10*3/uL (130-400); RED BLOOD COUNT 4.35 10*6/uL (4.50-5.90); RED CELL DISTRI WIDTH 17.2 % (0-14.5); WHITE BLOOD COUNT 11.8 10*3/uL (4.8-10.8)
[2019-12-17 14:23] LABS: BILIRUBIN NEGATIVE (NEGATIVE); BLOOD NEGATIVE (NEGATIVE); CLARITY SL CLOUDY (CLEAR); COLOR YELLOW (YELLOW); GLUCOSE NEGATIVE (NEGATIVE); KETONE NEGATIVE (NEGATIVE)
[2019-12-17 14:24] LABS: LEUKO ESTERASE 2+ (NEGATIVE); NITRITE POSITIVE (NEGATIVE); UROBILINOGEN 0.2 E.U./dl (0.2-1.0)
[2019-12-17 14:26] LABS: BACTERIA 4+; WBC 21-30 wbc/hpf (0-5)
[2019-12-17 14:35] LABS: ALBUMIN 3.4 gm/dl (3.1-4.5); ALKALINE PHOSPHATASE 85 U/L (45-117); BUN 11 mg/dl (7-24); CHLORIDE 109 mmol/L (98-107); CREATININE 0.89 mg/dL (0.70-1.30); POTASSIUM 3.9 mmol/L (3.5-5.1); SGOT/AST 12 IU/L (3-35); SGPT/ALT 15 U/L (12-78); SODIUM 142 mmol/L (136-145); TOTAL PROTEIN 6.6 gm/dL (6.4-8.2)
[2019-12-17 14:47] LABS: PLATELET SUFFICIENCY NORMAL (NORMAL); TOTAL CELLS COUNTED 100 #CELLS
[2019-12-17] MEDS ORDERED: CIPRO500 MG PO (15:58)
== END 2019-12-17 16:21 | disposition home or self-care (01) ==
LOC: ED 12:56
PROVIDERS: Physician Assistant
DX: N39.0 Urinary tract infection, site not specified (principal); I10 Essential (primary) hypertension; E11.9 Type 2 diabetes mellitus without complications; M19.90 Unspecified osteoarthritis, unspecified site; F17.210 Nicotine dependence, cigarettes, uncomplicated; Z88.2 Allergy status to sulfonamides; Z79.899 Other long term (current) drug therapy

== ENCOUNTER → 2020-01-02 | Outpatient (CLI) | payer MEDICARE ==
[~2020-01-02] MED LIST changes: +CIPRO500 MG PO
[2020-01-02 12:27] LABS: HEMATOCRIT 40.1 % (42.0-52.0); HEMOGLOBIN 12.7 g/dl (14.0-18.0); MEAN CELL VOLUME 82.3 fl (80.0-94.0); MEAN CORPUSCULAR HGB 26.1 pg (27.0-31.0); MEAN CORPUSCULAR HGB CONC 31.7 g/dl (33.0-37.0); PLATELET COUNT AUTOMATED 120 10*3/uL (130-400); RED BLOOD COUNT 4.87 10*6/uL (4.50-5.90); RED CELL DISTRI WIDTH 17.1 % (0-14.5); WHITE BLOOD COUNT 7.3 10*3/uL (4.8-10.8)
[2020-01-02 12:53] LABS: ALBUMIN 3.7 gm/dl (3.1-4.5); BUN 11 mg/dl (7-24); CHLORIDE 107 mmol/L (98-107); CREATININE 0.81 mg/dL (0.70-1.30); PHOSPHOROUS 2.3 mg/dL (2.5-4.9); POTASSIUM 3.8 mmol/L (3.5-5.1); SODIUM 140 mmol/L (136-145)
[2020-01-02 12:55] LABS: BUN 11 mg/dl (7-24); CHLORIDE 108 mmol/L (98-107); CREATININE 0.82 mg/dL (0.70-1.30); POTASSIUM 3.6 mmol/L (3.5-5.1); SODIUM 141 mmol/L (136-145)
[2020-01-02 13:05] LABS: BILIRUBIN NEGATIVE (NEGATIVE); BLOOD NEGATIVE (NEGATIVE); CLARITY CLOUDY (CLEAR); COLOR YELLOW (YELLOW); GLUCOSE NEGATIVE (NEGATIVE); KETONE NEGATIVE (NEGATIVE); PH 6.5 (5.0-9.0)
[2020-01-02 13:06] LABS: LEUKO ESTERASE 3+ (NEGATIVE); NITRITE POSITIVE (NEGATIVE); UROBILINOGEN 0.2 E.U./dl (0.2-1.0)
[2020-01-02 13:13] LABS: BACTERIA 3+; BASOPHILS 1 % (0-1); PLATELET SUFFICIENCY LOW (NORMAL); TOTAL CELLS COUNTED 100 #CELLS; WBC TNTC wbc/hpf (0-5)
== END | disposition home or self-care (01) ==
LOC: LAB 11:42
PROVIDERS: Internal Medicine Nephrology; Registered Nurse Flight
DX: E11.9 Type 2 diabetes mellitus without complications (principal); N17.9 Acute kidney failure, unspecified; R39.11 Hesitancy of micturition

== ENCOUNTER 2020-02-12 13:04 | Inpatient (IN) | payer MEDICARE ==
[~2020-02-12] VITALS: Ht 180.3 cm; Wt 68.2 kg
[2020-02-12 13:31] VITALS: BP 143/73
[2020-02-12 13:39] VITALS: BP 135/66
[2020-02-12 13:52] LABS: HEMATOCRIT 40.9 % (42.0-52.0); MEAN CELL VOLUME 80.4 fl (80.0-94.0); MEAN CORPUSCULAR HGB 26.3 pg (27.0-31.0); MEAN CORPUSCULAR HGB CONC 32.8 g/dl (33.0-37.0); PLATELET COUNT AUTOMATED 111 10*3/uL (130-400); RED BLOOD COUNT 5.09 10*6/uL (4.50-5.90); RED CELL DISTRI WIDTH 17.7 % (0-14.5)
[2020-02-12 14:02] LABS: BILIRUBIN NEGATIVE (NEGATIVE); CLARITY CLEAR (CLEAR); COLOR YELLOW (YELLOW); GLUCOSE NEGATIVE (NEGATIVE); KETONE NEGATIVE (NEGATIVE)
[2020-02-12 14:04] LABS: BLOOD NEGATIVE (NEGATIVE); LEUKO ESTERASE NEGATIVE (NEGATIVE); NITRITE NEGATIVE (NEGATIVE); UROBILINOGEN 0.2 E.U./dl (0.2-1.0)
[2020-02-12 14:05] LABS: ALBUMIN 3.6 gm/dl (3.1-4.5); ALKALINE PHOSPHATASE 90 U/L (45-117); BUN 9 mg/dl (7-24); CHLORIDE 107 mmol/L (98-107); CREATININE 0.86 mg/dL (0.70-1.30); LIPASE 142 U/L (73-393); SGOT/AST 22 IU/L (3-35); SGPT/ALT 21 U/L (12-78); SODIUM 143 mmol/L (136-145); TOTAL PROTEIN 7.2 gm/dL (6.4-8.2)
[2020-02-12 14:09] LABS: BACTERIA TRACE; EPITHELIAL CELLS 0-2; MUCOUS TRACE
[2020-02-12 14:15] LABS: BASOPHILS 2 % (0-1); TOTAL CELLS COUNTED 100 #CELLS
[2020-02-12 14:16] LABS: PLATELET SUFFICIENCY LOW (NORMAL)
[2020-02-12 14:17] LABS: OVALOCYTES FEW
--- NOTE | 2020-02-12 14:55 | NUR ---
PATIENT CALLED IN AND HER NAME IS ORALIA. PHONE NUMER IS [phone]. STATES TO CALL HER SO SHE CAN CALL A CAB.
--- NOTE | 2020-02-12 18:24 | NUR ---
ROOM ASSIGNED ROOM IS HALTED AT THIS TIME.
--- NOTE | 2020-02-12 19:19 | NUR ---
REPORT GIVEN TO ASHLEIGH JO.
--- NOTE | 2020-02-12 19:36 | NUR ---
REPORT CALLED TO BRIANDA JO. PATIENT TRANSPORTED TO [facility] BY JAVIER BLISS.
[2020-02-12 19:42] VITALS: BP 134/62
--- NOTE | 2020-02-12 19:42 | NUR ---
Time: 1942 A 54 year old MALE admitted to [facility] under services of MIKE FONTAINE DO. Pt. arrived via bed from ER. Chief complaint: BACK/HIP PAIN. BRIANDA MELGAR
--- NOTE | 2020-02-12 20:42 | NUR ---
PATIENT MEDICATED WITH IV MORPHINE FOR C/O BACK/HIP PAIN 08/07. WILL MONITOR
[2020-02-12] MEDS ORDERED: DULOXETINE HCL30 MG PO (21:00)
[2020-02-12] MEDS ORDERED: COLACE 2-IN-11 EACH PO (21:00)
[2020-02-12] MEDS ORDERED: MONTELUKAST SOD10 MG PO (21:02)
[2020-02-12] MEDS ORDERED: PAROXETINE HCL40 MG PO (21:03)
[2020-02-12] MEDS ORDERED: PHARMASSURE VI500 MG PO (21:04)
[2020-02-12] MEDS ORDERED: LIDODERM1 EACH T (21:05)
--- NOTE | 2020-02-12 21:10 | NUR ---
INFORMED THAT HOME MEDS ARE VERIFIED FROM CLAIM HISTROY, PATIENT IS POOR HISTORIAN. INFORMED WE WOULD HAVE TO CALL PHARM IN REGARD TO NARCOTIC AND KLONOPIN, DOCTOR STATED THAT WAS OK. ALSO INFORMED OF 4 WOUNDS, AWAITING WOUND ORDERS. STATED OK
--- NOTE | 2020-02-12 21:42 | NUR ---
PATIENT RESTING IN BED, EYES CLOSED. NO DISTRESS NOTED. CALL LIGHT WITHI NREACH
--- NOTE | 2020-02-12 23:04 | NUR ---
MACE AWARE THAT MORPHINE WAS INEFFECTIVE PATIENT IS STILL HAVING 10/10 PAIN. DOCTOR STATED TO TRY NORCO PRN FIRST.
--- NOTE | 2020-02-12 23:07 | NUR ---
PATIENT MEDICATED WITH NORCO FOR C/O 08/07 BACK/HIP PAIN. WILL MONITOR
--- NOTE | 2020-02-12 23:30 | NUR ---
PRESENT ON FLOOR. MADE AWARE THAT PATIENT INTERMIT. STRAIGHT CATH'S SELF WITH HOME SUPPLIES IN ROOM. DOCTOR STATED OK.
[2020-02-13] VITALS: BP 133/63
--- NOTE | 2020-02-13 00:07 | NUR ---
PATIENT RESTING IN BED QUIETLY, EYES CLOSED. NO DISTRESS NOTED. CALL LIGHT WITHIN REACH
--- NOTE | 2020-02-13 05:35 | NUR ---
PATIENT MEDICATED WITH IV MORPHINE FOR C/O 10/10 PAIN. WILL MONITOR
--- NOTE | 2020-02-13 05:50 | NUR ---
ANDRESSHI Lala [id number] Please refer to the physician's history and physical for past medical history, comorbid conditions, and allergies. Diagnosis: OSTEOMYELITIS Fernando Score: 16,AT RISK WOUND DESCRIPTIONS: Wound Number: 1 Location of the wound: right foot 2nd toe Type of wound: traumatic Thickness: Partial Size: 0.7cm x 1.2cm x 0.1cm Tunneling: none Undermining: none Sinus Tract: none Presence of Exudate: none Amount: None Color: Brown, red Odor: None Periwound Skin Appearance: Normal Wound edges: approximated Pain (associated with wound): none at time of assessment How does patient state this happened? pt stated this happened about 1 week ago and when he took his toenail off he noticed blood and his toenail was in his sock Wound Number: 2 Location of the wound: coccyx Type of wound: stage 4 Thickness: Full Size: 0.9cm x 0.4cm x 2.4cm Tunneling: none Undermining: none Sinus Tract: none Presence of Exudate: Serous Amount: Light Color: Red Odor: Foul Periwound Skin Appearance: Macerated Wound edges: none at time of assessment Pain (associated with wound): tender to touch How does patient state this happened? pt stated this is ongoing and his thought it was healed.He stated he will follow up in the wound care center upon discharge Wound Number: 3 Location of the wound: proximal lower spine Thickness: Partial Size: 0.6cm x 0.2cm x 0.1cm Tunneling: none Undermining: none Sinus Tract: none Presence of Exudate: Serous Amount: Light Color: Red Odor: None Periwound Skin Appearance: Scar Wound edges: approximated Pain (associated with wound): very tender to touch How does patient state this happened? pt stated when he fell he heard a pop where he had rods placed in his back Wound Number: 4 Location of the wound: distal lower spine Thickness: Partial Size: 0.6cm x 0.3cm x 0.1cm Tunneling: none Undermining: none Sinus Tract: none Presence of Exudate: Serous Amount: Light Color: Red Odor: None Periwound Skin Appearance: Scar Wound edges: approximated Pain (associated with wound): very tender to touch How does patient state this happened? pt stated when he fell he heard a pop where he had rods placed in his back Surface the patient is resting on: Isoflex SKIN PREVENTION RECOMMENDATION: 1. Pressure redistribution support surface as appropriate 2. Elevate heels 3. Remove boots/TEDS every shift and reapply 4. Head of bed 30 degrees as tolerated 5. Assess nutrition and hydration 6. Manage moisture 7. Avoid the use of containment devices while in bed 8. Use absorptive products on surfaces limit layers of linens on bed 9. Turn and reposition every 1-2 hours in bed and every 1 hour in chair as tolerated 10. Weight shifts every 15 minutes while up in chair 11. Offloading with pillows or device to keep heels elevated off bed 12. Monitor skin at least every shift 13. Inspect under medical devices twice a day WOUND TREATMENT RECOMMENDATIONS: Dr. Hollingsworth and ID is already on consult for area to coccyx. May need imaging studies to lower spine to due fall and past history of rods in back Cleanse right 2nd toe with nss and apply bacitracin and cover with bandaid bid. Full thickness guidelines: Clease coccyx with nss and apply sureprep around the wound therahoney to wound bed cover with optifoam gentle Partial thickness guidelines: Cleanse proximal lower spine and distal lower spine with nss and apply sureprep around the wound therahoney to wound bed and cover with optifoam gentle every 2 days and prn for soiling. Heel raiser pro boots to bilateral feet while in bed Wheelchair cushion when oob.
[2020-02-13 06:12] LABS: HEMATOCRIT 38.3 % (42.0-52.0); MEAN CORPUSCULAR HGB 26.3 pg (27.0-31.0); MEAN CORPUSCULAR HGB CONC 32.1 g/dl (33.0-37.0); PLATELET COUNT AUTOMATED 104 10*3/uL (130-400); RED BLOOD COUNT 4.67 10*6/uL (4.50-5.90); RED CELL DISTRI WIDTH 18.1 % (0-14.5); WHITE BLOOD COUNT 7.3 10*3/uL (4.8-10.8)
[2020-02-13 06:34] LABS: ALBUMIN 3.2 gm/dl (3.1-4.5); BUN 9 mg/dl (7-24); CHLORIDE 109 mmol/L (98-107); POTASSIUM 4.3 mmol/L (3.5-5.1); SODIUM 143 mmol/L (136-145)
--- NOTE | 2020-02-13 06:35 | NUR ---
MORPHINE APPEARS EFFECTIVE, PATIENT RESTIN QUIETLY, EYES CLOSED.
--- NOTE | 2020-02-13 06:38 | NUR ---
ANSWERING SERVICE CALLED FOR ID. MESSAGE TO BE SENT TO
[2020-02-13 06:41] LABS: ACT PARTIAL THROMBO TIME 29.9 SECONDS (20.0-32.1); INTERNATIONAL NORM RATIO 0.9 (2.0-3.5)
[2020-02-13 06:45] LABS: ALKALINE PHOSPHATASE 81 U/L (45-117); CHOLESTEROL 180 mg/dL (<200); CREATININE 0.81 mg/dL (0.70-1.30); FREE T4 1.01 ng/dl (0.76-1.46); HDL CHOLESTEROL 42 mg/dl (40-60); LDL CHOLESTEROL 116 mg/dL (9-159); PHOSPHOROUS 3.8 mg/dL (2.5-4.9); SGOT/AST 12 IU/L (3-35); SGPT/ALT 17 U/L (12-78); THYROID STIM HORMONE (HS) 0.504 uIU/ml (0.358-4.75); TOTAL PROTEIN 6.2 gm/dL (6.4-8.2); TRIGLYCERIDES 108 mg/dl (<150); VLDL CHOLESTEROL 22 mg/dL (6-40)
--- NOTE | 2020-02-13 07:00 | NUR ---
ARRIVED ON SHIFT, INTRODUCED TO PATIENT, BED IN LOW POSTION, WHEEL LOCKS ENGAGED, SIDE RAILS UP X2, CALL LIGHT WITHIN REACH, NO NEEDS VOICED AT THIS TIME, WHITE BOARD UPDATED.
--- NOTE | 2020-02-13 07:14 | NUR ---
INFORMED OF NEW CONSULT. PATIENT TO REMAIN NPO AT THIS TIME, NO NEW ORDERS.
[2020-02-13 07:21] LABS: TOTAL CELLS COUNTED 100 #CELLS
[2020-02-13 07:22] LABS: PLATELET SUFFICIENCY LOW (NORMAL)
--- NOTE | 2020-02-13 07:44 | NUR ---
PHYSICAL THERAPY Screen and PT eval received will follow thank you Nicole Ghosh PT
[2020-02-13 08:00] VITALS: BP 114/89
--- NOTE | 2020-02-13 08:53 | NUR ---
Shift chart check completed.
[2020-02-13 08:54] LABS: VITAMIN D, 25-HYDROXY 28.2 ng/mL (30-100)
--- NOTE | 2020-02-13 09:38 | NUR ---
PATIENT C/O LBP 08/07 ALSO MOANING, MEDICATED WITH MORPHINE ORDERED, PATIENTS PTT LOW, DID NOT GIVE LOVENOX, DR. PAINTING IN TO SEE PATIENT, HE PLANS TO TRANSFER PATIENT, PATIENT TO REMAIN NPO AT THIS TIME. PATIENT ADVISED OF POC. VERSED UNDERSTANDING.
--- NOTE | 2020-02-13 09:45 | NUR ---
Dr. Caceres notified of wound care recommendations he stated that the patient is being transfered
--- NOTE | 2020-02-13 10:37 | NUR ---
PHYSICAL THERAPY PT evaluation attempted. Per nursing, patient being transferred to [facility] this date. Discharge PT orders due to transfer to another facility. Thank you for this order. Stephany Shelton,PT,DPT
--- NOTE | 2020-02-13 10:38 | NUR ---
PATIENT HAVING DECREASED PAIN ALTHOUGH REMAINS 6/10, PATIENT BEING TRANSFERED TO [facility].
--- NOTE | 2020-02-13 11:00 | NUR ---
OT NOTE OT evaluation attempted. Per nursing and discussion with the physical therapist, patient being transferred to [facility] this date. Discharge OT orders due to transfer to another facility. Thank you for the referral. Ary Ktohari, OTR/L
--- NOTE | 2020-02-13 11:00 | NUR ---
CALL PLACED TO [facility]. NURSE TO NURSE GIVEN TO BALBINA JO.
--- NOTE | 2020-02-13 11:45 | NUR ---
Discharge instructions reviewed with patient. Patient receptive and verbalizes understanding. Follow-up care arranged. Written instructions given to patient, PATIENT GOING TO [facility], IV IN RIGHT ARM REMAINS IN PLACE, PATIENT IS NON MONITORED, LEFT VIA CART, BY [facility]. ANDREE CHAMBERS
--- NOTE | 2020-02-13 11:49 | NUR ---
Surveillance Agent in to talk to patient. Patient states lives at home with and family. There are few steps in the home. Physician: sonya askew [facility]acy: [facility] Home health services: none at present Patient's level of ADLs: MODERATE ASSIST Patient has working utilities: all working DME: wheelchair walker Follow-up physician's appointment after d/c: will be made by hospitalist nurse director upon discharge Does patient want to access PORTAL?: no Discharge plan discussed with patient, he states he lives at home with family, he also states he doesn't get around well at home, no VNA at present, discussed with him VNA when medically stable and he stated he would be transferred to another facility for a higher level of care. educated patient that he could ask that facilities case management to set up VNA when he is discharged,. LILIANA BATISTA
== END 2020-02-13 11:45 | disposition short-term general hospital (02) | DRG 541 ==
LOC: ED 13:04 → EDHOLD 16:27 → 4NE 16:27
PROVIDERS: Hospitalist; Physician Assistant; ADMIT Internal Medicine
DX: M46.28 Osteomyelitis of vertebra, sacral and sacrococcygeal region (principal); L89.152 Pressure ulcer of sacral region, stage 2; D64.9 Anemia, unspecified; D69.6 Thrombocytopenia, unspecified; E11.41 Type 2 diabetes mellitus with diabetic mononeuropathy; I10 Essential (primary) hypertension; E11.42 Type 2 diabetes mellitus with diabetic polyneuropathy; E11.51 Type 2 diabetes mellitus with diabetic peripheral angiopathy without gangrene; E86.0 Dehydration; M48.00 Spinal stenosis, site unspecified; M51.37 Other intervertebral disc degeneration, lumbosacral region; G89.29 Other chronic pain; G25.81 Restless legs syndrome; F17.210 Nicotine dependence, cigarettes, uncomplicated; K21.9 Gastro-esophageal reflux disease without esophagitis; F41.9 Anxiety disorder, unspecified; M54.42 Lumbago with sciatica, left side; M54.41 Lumbago with sciatica, right side; E78.5 Hyperlipidemia, unspecified; F32.9 Major depressive disorder, single episode, unspecified; Z96.643 Presence of artificial hip joint, bilateral; Z82.49 Family history of ischemic heart disease and other diseases of the circulatory system

== ENCOUNTER 2020-03-10 13:42 | Inpatient (IN) | payer MEDICARE ==
[~2020-03-10] VITALS: Ht 177.8 cm; Wt 70.9 kg
[2020-03-10 13:42] VITALS: BP 132/67
[~2020-03-10 13:42] MED LIST changes: +COLACE 2-IN-11 EACH PO; +DULOXETINE HCL30 MG PO; +LIDODERM1 EACH T; +MONTELUKAST SOD10 MG PO; +PAROXETINE HCL40 MG PO; +PHARMASSURE VI500 MG PO
[2020-03-10 14:20] LABS: HEMATOCRIT 24.6 % (42.0-52.0); MEAN CELL VOLUME 78.6 fl (80.0-94.0); MEAN CORPUSCULAR HGB 25.2 pg (27.0-31.0); MEAN CORPUSCULAR HGB CONC 32.1 g/dl (33.0-37.0); MEAN PLATELET VOLUME 10.8 fl (9.6-12.3); PLATELET COUNT AUTOMATED 324 10*3/uL (130-400); RED BLOOD COUNT 3.13 10*6/uL (4.50-5.90); RED CELL DISTRI WIDTH 17.3 % (0-14.5); WHITE BLOOD COUNT 9.5 10*3/uL (4.8-10.8)
[2020-03-10 14:35] LABS: ALBUMIN 2.7 gm/dl (3.1-4.5); ALKALINE PHOSPHATASE 87 U/L (45-117); BUN 14 mg/dl (7-24); CHLORIDE 107 mmol/L (98-107); SGOT/AST 12 IU/L (3-35); SGPT/ALT 20 U/L (12-78); SODIUM 140 mmol/L (136-145); TOTAL PROTEIN 7.5 gm/dL (6.4-8.2)
[2020-03-10 14:50] LABS: BASOPHILS 1 % (0-1); MICROCYTOSIS SLIGHT; PLATELET SUFFICIENCY NORMAL (NORMAL); TARGET CELLS FEW; TOTAL CELLS COUNTED 100 #CELLS
[2020-03-10 15:59] LABS: BILIRUBIN NEGATIVE (NEGATIVE); BLOOD NEGATIVE (NEGATIVE); CLARITY CLEAR (CLEAR); COLOR YELLOW (YELLOW); GLUCOSE NEGATIVE (NEGATIVE); KETONE TRACE (NEGATIVE); UROBILINOGEN 0.2 E.U./dl (0.2-1.0)
[2020-03-10 16:06] LABS: BACTERIA 1+; EPITHELIAL CELLS 0-2; LEUKO ESTERASE 1+ (NEGATIVE); MUCOUS 1+; NITRITE NEGATIVE (NEGATIVE); WBC 21-30 wbc/hpf (0-5)
[2020-03-10 16:30] VITALS: BP 129/66
--- NOTE | 2020-03-10 18:05 | NUR ---
SPOKE WITH TANVIR BRUNO FROM [facility]. THEY ARE UNABLE TO TAKE PT AT THIS TIME.
--- NOTE | 2020-03-10 18:43 | NUR ---
MSADMTime: N A 54 year old MALE admitted to under services of [facility]. Pt. arrived via bed from ER. Chief complaint: SEVERE BACK PAIN. LUDIN RAWLS
[2020-03-10 18:46] VITALS: BP 144/76
--- NOTE | 2020-03-10 19:03 | NUR ---
PT STATES HE IS IN TOO MUCH PAIN TO REMOVE THE BACK BRACE AT THIS TIME TO MEASURE POST-OP INCISION. WILL MONITOR.
--- NOTE | 2020-03-10 19:08 | NUR ---
MOERPHINE GIVEN FOR C/O BACK PAIN. RATES 10/10 ON PAIN SCALE. WILL MONITOR.
--- NOTE | 2020-03-10 20:55 | NUR ---
PATIENT MEDICATED WITH NORCO FOR COMPLAINTS OF BACK PAIN. RATES 08/07. ALSO MEDICATED WITH RESTORIL AT THIS TIME. WILL CHECK EFFECTIVENESS.
[2020-03-11] VITALS: BP 104/40
--- NOTE | 2020-03-11 01:30 | NUR ---
PATIENT SLEEPING, NO SIGNS OF DISTRESS. RESPIRATIONS EASY, NON LABORED. WILL CONTINUE TO MONITOR.
--- NOTE | 2020-03-11 02:16 | NUR ---
PATIENT C/O BACK PAIN. RATES 08/07. MEDICATED WITH MORPHINE. WILL CHECK EFFECTIVENESS.
--- NOTE | 2020-03-11 04:30 | NUR ---
PATIENT SLEEPING, MORPHINE EFFECTIVE. WILL CONTINUE TO MONITOR.
--- NOTE | 2020-03-11 05:56 | NUR ---
SHI CAMPOS [id number] Please refer to the physician's history and physical for past medical history, comorbid conditions, and allergies. Diagnosis: POSTOPERATIVE PAIN AFTER SPINAL SURGERY Fernando Score: , WOUND DESCRIPTIONS: Wound Number: 1 Location of the wound: lumbar spine Type of wound: surgical Thickness: Partial Size: 15.0cm x 1.7cm x <0.1cm Tunneling: none Undermining: none Sinus Tract: none Presence of Exudate: none Amount: None Color: Red Odor: None Periwound Skin Appearance: scar Wound edges: approximated Pain (associated with wound): none at time of assessment How does patient state this happened? pt stated he just had surgery at [facility] and has a return appointment in 1 week Wound Number: 2 Location of the wound: coccyx Type of wound: stage 4 Thickness: Partial Size: 1.0cm x 0.3cm x 0.4cm Tunneling: none Undermining: none Sinus Tract: none Presence of Exudate: none Amount: None Color: Red Odor: None Periwound Skin Appearance: Scar Wound edges: approximated Pain (associated with wound): none at time of assessment How does patient state this happened? pt stated he has had this for a very long time Patient has intact scabbed areas noted to top of left foot and right cheek. No redness surrounding areas. No drainage noted at time of assessment. Surface the patient is resting on: Isoflex SKIN PREVENTION RECOMMENDATION: 1. Pressure redistribution support surface as appropriate 2. Elevate heels 3. Remove boots/TEDS every shift and reapply 4. Head of bed 30 degrees as tolerated 5. Assess nutrition and hydration 6. Manage moisture 7. Avoid the use of containment devices while in bed 8. Use absorptive products on surfaces limit layers of linens on bed 9. Turn and reposition every 1-2 hours in bed and every 1 hour in chair as tolerated 10. Weight shifts every 15 minutes while up in chair 11. Offloading with pillows or device to keep heels elevated off bed 12. Monitor skin at least every shift 13. Inspect under medical devices twice a day WOUND TREATMENT RECOMMENDATIONS: Stage 4 guidelines: cleanse coccyx with nss and apply sureprep around the wound therahoney to wound bed and cover with optifoam gentle every 2 days and prn for soiling. Wheelchair cushion when oob. Heel raiser pro boots to bilateral feet while in bed. Cleanse lumbar spine with with nss and apply dsd daily and prn for soiling.
[2020-03-11 06:28] LABS: HEMATOCRIT 26.1 % (42.0-52.0); MEAN CELL VOLUME 78.9 fl (80.0-94.0); MEAN CORPUSCULAR HGB 24.5 pg (27.0-31.0); MEAN PLATELET VOLUME 11.5 fl (9.6-12.3); PLATELET COUNT AUTOMATED 324 10*3/uL (130-400); RED BLOOD COUNT 3.31 10*6/uL (4.50-5.90); RED CELL DISTRI WIDTH 17.4 % (0-14.5); WHITE BLOOD COUNT 11.5 10*3/uL (4.8-10.8)
[2020-03-11 06:49] LABS: BASOPHILS 1 % (0-1); MICROCYTOSIS SLIGHT; TOTAL CELLS COUNTED 100 #CELLS
[2020-03-11 06:50] LABS: PLATELET SUFFICIENCY NORMAL (NORMAL)
[2020-03-11 06:59] LABS: ALBUMIN 2.8 gm/dl (3.1-4.5); ALKALINE PHOSPHATASE 94 U/L (45-117); BUN 11 mg/dl (7-24); CHLORIDE 104 mmol/L (98-107); POTASSIUM 3.5 mmol/L (3.5-5.1); SGOT/AST 10 IU/L (3-35); SGPT/ALT 19 U/L (12-78); SODIUM 140 mmol/L (136-145); TOTAL PROTEIN 7.8 gm/dL (6.4-8.2)
--- NOTE | 2020-03-11 07:38 | NUR ---
TOOK OVER CARE OF PT. PT RESTING IN BED, SLEEPING. RESPIRATIONS EASY AND UNLABORED ON ROOM AIR. NO S/S OF DISTRESS NOTED. SAFETY MEASURES IN PLACE. CALL LIGHT IN REACH.
--- NOTE | 2020-03-11 07:52 | NUR ---
MORPHINE GIVEN AT THIS TIME DUE C/O BACK PAIN. PT RATES PAIN "10" ON 1-10 SCALE. WILL MONITOR FOR EFFECTIVENESS. CALL LIGHT IN REACH.
[2020-03-11 08:00] VITALS: BP 117/68
--- NOTE | 2020-03-11 08:05 | NUR ---
PHYSICAL THERAPY Screen and PT eval received will follow thank you Nicole Ghosh PT
--- NOTE | 2020-03-11 08:07 | NUR ---
Dr. Casiano notified of wound care recommendations.
--- NOTE | 2020-03-11 08:52 | NUR ---
MORPHINE EFFECTIVE AT THIS TIME, PER PT.
--- NOTE | 2020-03-11 09:00 | NUR ---
Line Crewman in to talk to patient. Patient states lives at home with family. There are 0 steps in the home. Physician: erica askew [facility]acy: [facility] Home health services: none Patient's level of ADLs: MODERATE ASSIST Patient has working utilities: all working DME: wheelchair, walkr Follow-up physician's appointment after d/c: will be made by hospitalist nurse director upon discharge Does patient want to access PORTAL?: no Discharge plan discussed with patient, he states he lives at home with family, he has difficulty ambulating and performing any adl. he has a wheelchair and walker at home, discussed with him a short term [facility] for 5 days of physical therapy and occupational therapy and possibly iv antibiotics. he was receptive to this. he stated he would like to go to [facility] nursing facility. oncology social work will send referral to [facility] for when patient is medically stable for discharge, case management will follow . LILIANA BATISTA
--- NOTE | 2020-03-11 09:14 | NUR ---
BAMBI faxed new patient referral to [facility] on this date. Pending acceptance.
--- NOTE | 2020-03-11 09:44 | NUR ---
PHYSICAL THERAPY Physical therapy evaluation attempted. Patient discussed history information, but was having alot of pain with movement. Nursing reports patient was just given medication to help with the pain. Will return at a later time/date to complete evaluation. Thank you. Stephany Shelton,PT,DPT
--- NOTE | 2020-03-11 11:03 | NUR ---
PHYSICAL THERAPY Physical Therapy evaluation completed on 4E with full evaluation to follow. Moderate complexity PT evalaution per chart review and evaluation, [id number]. Recommend physical therapy per plan of care and SNF upon discharge. Thank you for this referral. Stephany Shelton,PT,DPT
--- NOTE | 2020-03-11 11:10 | NUR ---
Occupational Therapy evaluation completed on four with full evaluation to follow. Recommend occupational therapy per plan of care and SNF upon discharge. Thank you for this referral. Ary Kothari OTR/L
[2020-03-11 12:00] VITALS: BP 112/54
--- NOTE | 2020-03-11 12:30 | NUR ---
DRESSING APPLIED TO PT COCCYX PER ORDERS, AT THIS TIME. PT RESTING IN BED, RESPIRATIONS EASY AND UNLABORED ON ROOM AIR. WILL CONTINUE TO MONITOR. SAFETY MEASURES IN PLACE. CALL LIGHT IN REACH.
--- NOTE | 2020-03-11 13:11 | NUR ---
CONSULT CALLED TO [facility] PER ORDERS. SANDRO RAMEY STATES THAT SHE WILL FORWARD THE INFORMATION.
--- NOTE | 2020-03-11 15:51 | NUR ---
PT GIVEN TYLENOL AT THIS TIME DUE TO BACK PAIN. WILL MONITOR FOR EFFECTIVENESS. CALL LIGHT IN REACH.
[2020-03-11 16:00] VITALS: BP 113/76
--- NOTE | 2020-03-11 16:51 | NUR ---
PT STATES THAT TYLENOL IS SOMEWHAT EFFECTIVE.
--- NOTE | 2020-03-11 18:00 | NUR ---
PT IS FOUND TO HAVE ATE 100% OF DINNER. PT RESTING IN BED AT THIS TIME WITH NO S/S OF DISTRESS. CALL LIGHT IN REACH.
--- NOTE | 2020-03-11 19:00 | NUR ---
ASSUMED CARE FOR THIS PT AT THIS TIME. PT LYING IN BED TALKING ON PHONE. WILL RETURN TO ASSESS PT AT A LATER TIME. BED IN LOW POSITION W/WHEELS LOCKED AND ALARM ON. CALL LIGHT IN REACH.
[2020-03-11 20:00] VITALS: BP 133/67
[2020-03-12] VITALS: BP 139/68
--- NOTE | 2020-03-12 01:21 | NUR ---
PT MEDICATED W/PO TYLENOL FOR CONTINUED C/O LUMBAR PAIN.
--- NOTE | 2020-03-12 01:27 | NUR ---
DR. XIONG NOTIFIED OF PT'S INCREASING PAIN TO BACK DESCRIBES BURNING / AND OXY/TYL/ICE/REPOSITIONING INEFFECTIVE. TO ORDER A ONE TIME DOSE OF MORPHINE.
--- NOTE | 2020-03-12 01:47 | NUR ---
PT MEDICATED W/MORPHINE IVP FOR C/O LUMBAR PAIN 08/07.
--- NOTE | 2020-03-12 02:23 | NUR ---
PT RESTING QUIETLY IN BED. NO FURTHER S/S OF DISTRESS NOTED OR C/O VOICED.
--- NOTE | 2020-03-12 04:20 | NUR ---
Upon discharge recommend patient to follow up for wound care in outpatient setting continue current wound care orders at discharging facility.
[2020-03-12 06:26] LABS: HEMATOCRIT 23.3 % (42.0-52.0); MEAN CELL VOLUME 77.7 fl (80.0-94.0); MEAN CORPUSCULAR HGB 24.3 pg (27.0-31.0); MEAN CORPUSCULAR HGB CONC 31.3 g/dl (33.0-37.0); MEAN PLATELET VOLUME 12.3 fl (9.6-12.3); PLATELET COUNT AUTOMATED 289 10*3/uL (130-400); RED CELL DISTRI WIDTH 17.1 % (0-14.5); WHITE BLOOD COUNT 10.3 10*3/uL (4.8-10.8)
[2020-03-12 06:43] LABS: ALBUMIN 2.3 gm/dl (3.1-4.5); ALKALINE PHOSPHATASE 76 U/L (45-117); BUN 16 mg/dl (7-24); CHLORIDE 103 mmol/L (98-107); CREATININE 0.72 mg/dL (0.70-1.30); POTASSIUM 3.7 mmol/L (3.5-5.1); SGOT/AST 11 IU/L (3-35); SGPT/ALT 16 U/L (12-78); SODIUM 139 mmol/L (136-145); TOTAL PROTEIN 6.7 gm/dL (6.4-8.2)
[2020-03-12 07:13] LABS: BASOPHILS 3 % (0-1); PLATELET SUFFICIENCY NORMAL (NORMAL); POLYCHROMASIA SLIGHT; TOTAL CELLS COUNTED 100 #CELLS
--- NOTE | 2020-03-12 07:33 | NUR ---
Dr. Casiano notified of wound care recommendations.
[2020-03-12 08:00] VITALS: BP 140/62
--- NOTE | 2020-03-12 09:00 | NUR ---
case management visits with patient, patient has been referred to [facility] for discharge when medically stable. case management will follow
--- NOTE | 2020-03-12 09:19 | NUR ---
BAMBI faxed updates to [facility] on this date. Pending a negative rapid covid to be accepted for placement.
--- NOTE | 2020-03-12 10:04 | NUR ---
PT GIVEN IV MORPHINE 2 MG AT THIS TIME FOR C/O PAIN TO BACK. WILL MONITOR FOR EFFECTIVENESS. CALL LIGHT IN REACH. SAFETY MEASURES IN PLACE.
--- NOTE | 2020-03-12 11:04 | NUR ---
MORPHINE EFFECTIVE PER PT.
--- NOTE | 2020-03-12 11:35 | NUR ---
PHYSICAL THERAPY Patient seen this am 1;1 for therapy visit and was resting supine in bed upon therapist arrival. Patient identified by name / and presented with abdominal back brace secondary to recent lumbar Laminectomy. OT transport assistant was also present for observation only as patient was educated on safe "log roll" technique prior to transfering supine to sit EOB with CGA x 1. Patient reports 10/10 low back pain and instructed on relaxation breathing technique to reduce pain c/o. Patient completed sit to stand transfer, CGA and ambulated with use of wh walker, 15'x 2 to [facility], demonstrating antalgic gait pattern, decreased stride and v/c to improve standing posture. Patient returned to EOB sit and following brief rest performed seated B LE marching / LAQ ex x 10 reps each without further c/o. Patient remained EOB sit with tray table, call light, telephone and bed alarm for safety awaiting lunch. Will continue per POC as tolerated, total treatment time 17 minutes. Marco Avila, CLERICAL SPECIALIST
--- NOTE | 2020-03-12 11:45 | NUR ---
OT NOTE Pt was seen this A.M. 1:1 for 18 minute OT session. Upon arrival pt was supine in bed twisted at the hips. Pt identified by name and and had complaints of 10/10 back pain. Pt was able to verbalize back precautions of no bending, no lifting, and no twisting however had no carry over throughout entire session. Pt was educated on log roll technique for increased I and following back precautions throughout bed mobility. Pt then transferred supine to sit EOB with SBA and fair carry over of log rolling. While sitting EOB pt donned B shoes with maxA due to pain and being very impulsive. Sit to stand completed from bed level with CGA and use of w/w. Functional mobility completed around the room to the bedside commode with CGA and constant verbal prompts for safety awareness and slowing down due to being very impulsive. Pt transferred on/off bedside commode with CGA and use of w/w. Functional mobility was then completed back to the EOB with CGA and use of w/w. There he was left sitting upright with call light in hand, tray table in place, and bed alarm activated for safety. Continue with rec D/C plan to SNF. АНДРЕЙ Reyes/Bharti
--- NOTE | 2020-03-12 11:54 | NUR ---
Rapid negative covid faxed to [facility] on this date.
[2020-03-12 12:00] VITALS: BP 142/58
--- NOTE | 2020-03-12 14:33 | NUR ---
PT GIVEN 2 MG IV MORPHINE PER EMAR ORDERS FOR C/O PAIN TO BACK. WILL MONITOR FOR EFFECTIVENESS. CALL LIGHT IN REACH.
--- NOTE | 2020-03-12 15:13 | NUR ---
OCCUPATIONAL THERAPY CO-SIGN I approve of the Occupational Therapy notes written above. HENRY DARNELL, OTR/L
--- NOTE | 2020-03-12 15:33 | NUR ---
PT RESTING IN BED. MORPHINE EFFECTIVE.
--- NOTE | 2020-03-12 15:38 | NUR ---
BAMBI recieved word that [facility] was recieved on this date. Patient can discharge to [facility] in [place] [phone] once medically stable.
[2020-03-12 16:00] VITALS: BP 145/77
--- NOTE | 2020-03-12 16:51 | NUR ---
URINE SENT TO LAB PER ORDERS.
[2020-03-12 17:04] LABS: BILIRUBIN 1+ (NEGATIVE); BLOOD NEGATIVE (NEGATIVE); CLARITY CLEAR (CLEAR); COLOR YELLOW (YELLOW); GLUCOSE NEGATIVE (NEGATIVE); KETONE NEGATIVE (NEGATIVE); LEUKO ESTERASE NEGATIVE (NEGATIVE); NITRITE POSITIVE (NEGATIVE); SPECIFIC GRAVITY 1.015 (1.005-1.030); UROBILINOGEN 0.2 E.U./dl (0.2-1.0)
[2020-03-12 17:09] LABS: WBC 0-2 wbc/hpf (0-5)
--- NOTE | 2020-03-12 18:00 | NUR ---
PT SITTING UP IN BED, EATING DINNER. PT GIVEN SCHEDULED MEDICATIONS. RESPIRATIONS EASY AND UNLABORED ON ROOM AIR. SAFETY MEASURES IN PLACE FOR PT. CALL LIGHT IN REACH.
--- NOTE | 2020-03-12 19:00 | NUR ---
ASSUMED CARE FOR THIS PT AT THIS TIME. PT AWAKE IN BED WATCHING TV. CALL LIGHT IN REACH.
[2020-03-12 20:00] VITALS: BP 140/80
--- NOTE | 2020-03-12 20:12 | NUR ---
PT MEDICATED W/MORPHINE IVP FOR C/O LUMBAR/BILATERAL HIP PAIN 08/07. PULL UP AND BED LINENS CHANGED D/T INCONTINENCE. BACK BRACE ON. CALL LIGHT IN REACH.
--- NOTE | 2020-03-12 21:00 | NUR ---
PT RESTING QUIETLY IN BED. NO S/S OF DISTRESS NOTED.
[2020-03-13] VITALS: BP 129/67
--- NOTE | 2020-03-13 | NUR ---
ICE APPLIED TO LUMBAR AREA PER PT REQUEST FOR C/O PAIN.
--- NOTE | 2020-03-13 01:38 | NUR ---
PT MEDICATED W/MORPHINE IVP FOR C/O LUMBAR PAIN 06/07. PT ENCOURAGED TO LIE ON BACK VS ON SIDE. PT STATES HE WILL IN A FEW MINUTES.
--- NOTE | 2020-03-13 02:00 | NUR ---
PT RESTING QUIETLY IN BED W/EYES CLOSED. NO S/S OF DISTRESS NOTED.
[2020-03-13 06:34] LABS: BASO % 0.2 % (0.0-1.0); EOS # 0.1 10*3/uL (0.0-0.4); HEMATOCRIT 24.1 % (42.0-52.0); LYMPH # 1.7 10*3/uL (1.3-4.4); LYMPH % 17.1 % (27.0-41.0); MEAN CELL VOLUME 77.2 fl (80.0-94.0); MEAN CORPUSCULAR HGB CONC 31.1 g/dl (33.0-37.0); MEAN PLATELET VOLUME 11.8 fl (9.6-12.3); MONO # 0.9 10*3/uL (0.1-1.0); MONO % 9.4 % (3.0-9.0); NEUT # 6.9 10*3/uL (2.3-7.9); NEUT % 71.8 % (47.0-73.0); PLATELET COUNT AUTOMATED 294 10*3/uL (130-400); RED BLOOD COUNT 3.12 10*6/uL (4.50-5.90); RED CELL DISTRI WIDTH 17.2 % (0-14.5); WHITE BLOOD COUNT 9.7 10*3/uL (4.8-10.8)
[2020-03-13 06:57] LABS: ALBUMIN 2.5 gm/dl (3.1-4.5); ALKALINE PHOSPHATASE 76 U/L (45-117); BUN 13 mg/dl (7-24); CHLORIDE 102 mmol/L (98-107); SGOT/AST 13 IU/L (3-35); SGPT/ALT 16 U/L (12-78); SODIUM 135 mmol/L (136-145); TOTAL PROTEIN 7.2 gm/dL (6.4-8.2)
[2020-03-13 08:00] VITALS: BP 103/57
--- NOTE | 2020-03-13 08:14 | NUR ---
PT GIVEN MORPHINE AT THIS TIME FOR C/O PAIN TO BACK AND LEGS. WILL MONITOR FOR EFFECTIVENESS. CALL LIGHT IN REACH.
--- NOTE | 2020-03-13 09:14 | NUR ---
PT STATES THAT MORPHINE IS EFFECTIVE.
[2020-03-13 12:00] VITALS: BP 110/62
--- NOTE | 2020-03-13 12:21 | NUR ---
PT GIVEN MORPHINE 2 MG VIA IV PUSH INTO RIGHT ARM IV SITE. PT TOLERATED WELL. PT C/O PAIN TO BACK. RATES PAIN A "10" ON 1-10 SCALE. DRESSING C/D/I TO IV SITE. WILL MONITOR. CALL LIGHT IN REACH/SAFETY MEASURES IN PLACE.
--- NOTE | 2020-03-13 13:21 | NUR ---
MORPHINE EFFECTIVE PER PT.
--- NOTE | 2020-03-13 13:42 | NUR ---
TYLENOL GIVEN AT THIS TIME FOR C/O PAIN TO LOWER BACK. OTHER SCHEDULED MEDICATIONS GIVEN AT THIS TIME. WILL MONITOR FOR EFFECTIVENESS. CALL LIGHT IN REACH.
--- NOTE | 2020-03-13 14:42 | NUR ---
TYLENOL EFFECTIVE PER PT.
--- NOTE | 2020-03-13 15:26 | NUR ---
pt resting in bed at this time. no s/s of distress. no complaints are voiced at this time. respirations easy and unlabored. safety measures in place. call light in reach.
[2020-03-13 16:00] VITALS: BP 123/67
[2020-03-13 20:00] VITALS: BP 125/66
--- NOTE | 2020-03-13 20:13 | NUR ---
PATIENT MEDICATED WITH MORPHINE 2MG FOR COMPLAINTS OF BACK PAIN. ALSO GIVEN A NEW ICE PACK. RESPIRATIONS REGULAR AND NON-LABORED ON ROOM AIR. WILL CONTINUE TO MONITOR. CALL LIGHT IN REACH.
--- NOTE | 2020-03-13 21:00 | NUR ---
MORPHINE EFFECTIVE AT THIS TIME. PATIENT IN BED WITH EYES CLOSED. NO SIGNS OR SYMPTOMS OF DISTRESS NOTED.
[2020-03-14] VITALS: BP 133/63
--- NOTE | 2020-03-14 00:35 | NUR ---
PATIENT MEDICATED WITH MORPHINE FOR COMPLAINTS OF SEVERE BACK PAIN AND TYLENOL FOR COMPLAINTS OF A HEADACHE. WILL MONITOR FOR EFFECTIVENESS. CALL LIGHT IN REACH.
--- NOTE | 2020-03-14 01:00 | NUR ---
MORPHINE AND TYLENOL EFFECTIVE AT THIS TIME. PATIENT RESTING IN BED WITH EYES CLOSED. NO SIGNS OR SYMPTOMS OF DISTRESS NOTED.
--- NOTE | 2020-03-14 04:22 | NUR ---
PATIENT MEDICATED WITH MORPHINE FOR COMPLAINTS OF SEVERE PAIN. WILL CONTINUE TO MONITOR.
[2020-03-14 05:59] LABS: BUN 17 mg/dl (7-24); CHLORIDE 102 mmol/L (98-107); CREATININE 0.81 mg/dL (0.70-1.30); POTASSIUM 4.1 mmol/L (3.5-5.1); SODIUM 139 mmol/L (136-145)
[2020-03-14 06:15] LABS: BASO % 0.3 % (0.0-1.0); EOS # 0.2 10*3/uL (0.0-0.4); EOS % 2.3 % (1.0-4.0); LYMPH # 1.6 10*3/uL (1.3-4.4); LYMPH % 20.7 % (27.0-41.0); MEAN CELL VOLUME 78.2 fl (80.0-94.0); MEAN CORPUSCULAR HGB 24.1 pg (27.0-31.0); MEAN CORPUSCULAR HGB CONC 30.8 g/dl (33.0-37.0); MONO # 0.6 10*3/uL (0.1-1.0); MONO % 8.1 % (3.0-9.0); NEUT # 5.1 10*3/uL (2.3-7.9); NEUT % 68.1 % (47.0-73.0); PLATELET COUNT AUTOMATED 313 10*3/uL (130-400); RED BLOOD COUNT 3.07 10*6/uL (4.50-5.90); RED CELL DISTRI WIDTH 17.2 % (0-14.5); WHITE BLOOD COUNT 7.5 10*3/uL (4.8-10.8)
[2020-03-14 08:00] VITALS: BP 133/79
--- NOTE | 2020-03-14 08:17 | NUR ---
MEDICATED WITH IV MORPHINE FOR LOWER BACK AND LEGS PAIN.
--- NOTE | 2020-03-14 08:40 | NUR ---
PATIENT USING NICOTROL INHALERS TO CONTROL SMOKING CRAVINGS.
--- NOTE | 2020-03-14 09:15 | NUR ---
PER PATIENT, PRN IV MORPHINE NOT VERY EFFECTIVE FOR LOWER BACK AND LEGS PAIN.
[2020-03-14] MEDS ORDERED: ATIVAN1 MG PO (10:09)
[2020-03-14] MEDS ORDERED: LYRICA300 MG PO (10:09)
[2020-03-14] MEDS ORDERED: OXYCODONE HCL10 M1 PO (10:09)
[2020-03-14] MEDS ORDERED: ARIPIPRAZOLE2 MG PO (10:09)
[2020-03-14] MEDS ORDERED: CEFUROXIME AXE250 MG PO (10:11)
[2020-03-14] MEDS ORDERED: METHOCARBAMOL500 M1 PO (10:14)
--- NOTE | 2020-03-14 12:54 | NUR ---
MEDICATED WITH PRN IV MORPHINE FOR BACK AND LEGS PAIN.
--- NOTE | 2020-03-14 13:00 | NUR ---
PRN IV MORPHINE SOMEWHAT EFFECTIVE, PER PATIENT.
--- NOTE | 2020-03-14 13:04 | NUR ---
PREPARING PATIENT FOR DISCHARGE TO [facility], FLAT FOLDING MACHINE OPERATOR TIME IS 1:30PM.
--- NOTE | 2020-03-14 13:16 | NUR ---
PATIENT'S MOTHER NOTIFIED OF TRANSFER TO [facility] TODAY, PATIENT HAS INFORMED HIS , REPORT CALLED TO RECEIVING NURSE AT [facility].
--- NOTE | 2020-03-14 13:39 | NUR ---
PATIENT DISCHARGED TO [facility] BY AMBULANCE SERVICE AT THIS TIME.
== END 2020-03-14 13:39 | disposition other institution (70) | DRG 947 ==
LOC: ED 13:42 → 4E 17:50 → EDHOLD 17:50 → 4E 18:09
PROVIDERS: Emergency Medicine; Internal Medicine; Student in an Organized Health Care Education/Training Program; ADMIT Family Medicine
DX: G89.18 Other acute postprocedural pain (principal); E43 Unspecified severe protein-calorie malnutrition; E87.2 Acidosis; N39.0 Urinary tract infection, site not specified; F33.2 Major depressive disorder, recurrent severe without psychotic features; E83.41 Hypermagnesemia; F17.210 Nicotine dependence, cigarettes, uncomplicated; I10 Essential (primary) hypertension; E78.5 Hyperlipidemia, unspecified; E11.40 Type 2 diabetes mellitus with diabetic neuropathy, unspecified; E11.51 Type 2 diabetes mellitus with diabetic peripheral angiopathy without gangrene; M48.00 Spinal stenosis, site unspecified; M54.9 Dorsalgia, unspecified; G89.29 Other chronic pain; F41.9 Anxiety disorder, unspecified; G25.81 Restless legs syndrome; Z96.641 Presence of right artificial hip joint; K21.9 Gastro-esophageal reflux disease without esophagitis; D50.9 Iron deficiency anemia, unspecified; Z88.2 Allergy status to sulfonamides; Z82.49 Family history of ischemic heart disease and other diseases of the circulatory system; Z71.6 Tobacco abuse counseling; Z68.22 Body mass index [BMI] 22.0-22.9, adult

== ENCOUNTER 2022-03-28 17:53 | Inpatient (IN) | payer OTHER ==
[~2022-03-28] VITALS: Ht 162.5 cm; Wt 87.6 kg
[~2022-03-28 17:53] MED LIST changes: +ARIPIPRAZOLE2 MG PO; +CEFUROXIME AXE250 MG PO; +METHOCARBAMOL500 M1 PO
[2022-03-28 18:00] VITALS: BP 115/61
[2022-03-28 20:00] VITALS: BP 106/58
[2022-03-28 20:04] LABS: HEMATOCRIT 40.7 % (42.0-52.0); MEAN CORPUSCULAR HGB 27.8 pg (27.0-31.0); MEAN CORPUSCULAR HGB CONC 31.9 g/dl (33.0-37.0); MEAN PLATELET VOLUME 12.4 fl (9.6-12.3); PLATELET COUNT AUTOMATED 294 10*3/uL (130-400); RED BLOOD COUNT 4.68 10*6/uL (4.50-5.90); RED CELL DISTRI WIDTH 14.5 % (0-14.5); WHITE BLOOD COUNT 14.5 10*3/uL (4.8-10.8)
[2022-03-28 20:07] LABS: MANUAL DIFF REFLEX YES
[2022-03-28 20:22] LABS: CREATININE 1.88 mg/dL (0.70-1.30); POTASSIUM 4.7 mmol/L (3.5-5.1)
[2022-03-28 20:23] LABS: TOTAL PROTEIN 7.5 gm/dL (6.4-8.2)
[2022-03-28 20:39] LABS: PLATELET SUFFICIENCY NORMAL (NORMAL); TOTAL CELLS COUNTED 100 #CELLS
[2022-03-29 01:18] VITALS: BP 132/64
[2022-03-29] MEDS ORDERED: TAMSULOSIN HCL0.4 MG PO (01:34)
[2022-03-29] MEDS ORDERED: PREGABALIN300 MG PO (01:34)
[2022-03-29] MEDS ORDERED: CLONAZEPAM1 MG PO (01:36)
[2022-03-29] MEDS ORDERED: OXYCODONE HCL10 M1 PO ×2 (01:36→09:31)
[2022-03-29] MEDS ORDERED: QUETIAPINE FUMA25 MG PO (01:37)
[2022-03-29] MEDS ORDERED: ALENDRONATE SOD70 M1 PO (01:46)
[2022-03-29] MEDS ORDERED: MYRBETRIQ50 M1 PO (01:47)
[2022-03-29 05:23] LABS: BUN 19 mg/dl (7-24); CHLORIDE 108 mmol/L (98-107); POTASSIUM 4.2 mmol/L (3.5-5.1); SODIUM 138 mmol/L (136-145)
[2022-03-29 05:26] LABS: ALKALINE PHOSPHATASE 77 U/L (45-117); CHOLESTEROL 181 mg/dL (<200); CREATININE 1.43 mg/dL (0.70-1.30); LDL CHOLESTEROL 127 mg/dL (9-159); SGOT/AST 6 IU/L (3-35); SGPT/ALT 10 U/L (12-78); TOTAL PROTEIN 6.2 gm/dL (6.4-8.2); TRIGLYCERIDES 138 mg/dl (<150)
[2022-03-29 05:32] LABS: FREE T4 1.19 ng/dl (0.76-1.46); THYROID STIM HORMONE (HS) 0.859 uIU/ml (0.358-4.75)
[2022-03-29 06:26] LABS: BASO % 0.3 % (0.0-1.0); EOS # 0.1 10*3/uL (0.0-0.4); EOS % 1.5 % (1.0-4.0); HEMATOCRIT 35.9 % (42.0-52.0); LYMPH # 1.7 10*3/uL (1.3-4.4); LYMPH % 18.8 % (27.0-41.0); MEAN CELL VOLUME 87.1 fl (80.0-94.0); MEAN CORPUSCULAR HGB 28.2 pg (27.0-31.0); MEAN CORPUSCULAR HGB CONC 32.3 g/dl (33.0-37.0); MONO # 0.7 10*3/uL (0.1-1.0); MONO % 7.8 % (3.0-9.0); NEUT # 6.4 10*3/uL (2.3-7.9); NEUT % 71.4 % (47.0-73.0); PLATELET COUNT AUTOMATED 242 10*3/uL (130-400); RED BLOOD COUNT 4.12 10*6/uL (4.50-5.90); RED CELL DISTRI WIDTH 14.5 % (0-14.5)
[2022-03-29 06:34] LABS: ACT PARTIAL THROMBO TIME 33.6 SECONDS (20.0-32.1); INTERNATIONAL NORM RATIO 0.9 (2.0-3.5)
[2022-03-29 08:00] VITALS: BP 132/74
[2022-03-29] MEDS ORDERED: ZANAFLEX4 M2 PO (09:30)
[2022-03-29] MEDS ORDERED: CYMBALTA60 MG PO (09:30)
[2022-03-29] MEDS ORDERED: KLONOPIN1 M1 PO (09:32)
[2022-03-29 12:00] VITALS: BP 111/64
[2022-03-29 15:32] VITALS: BP 106/58
[2022-03-29 20:00] VITALS: BP 126/54
[2022-03-30] VITALS: BP 138/67
[2022-03-30 05:57] LABS: BUN 14 mg/dl (7-24); CHLORIDE 109 mmol/L (98-107); CREATININE 1.13 mg/dL (0.70-1.30); POTASSIUM 4.2 mmol/L (3.5-5.1); SODIUM 140 mmol/L (136-145)
[2022-03-30 06:05] LABS: BASO % 0.4 % (0.0-1.0); EOS # 0.2 10*3/uL (0.0-0.4); EOS % 2.7 % (1.0-4.0); HEMATOCRIT 37.1 % (42.0-52.0); LYMPH # 1.6 10*3/uL (1.3-4.4); LYMPH % 24.6 % (27.0-41.0); MEAN CELL VOLUME 86.7 fl (80.0-94.0); MEAN CORPUSCULAR HGB 28.3 pg (27.0-31.0); MEAN CORPUSCULAR HGB CONC 32.6 g/dl (33.0-37.0); MEAN PLATELET VOLUME 12.6 fl (9.6-12.3); MONO # 0.6 10*3/uL (0.1-1.0); MONO % 8.8 % (3.0-9.0); NEUT # 4.2 10*3/uL (2.3-7.9); NEUT % 63.2 % (47.0-73.0); PLATELET COUNT AUTOMATED 236 10*3/uL (130-400); RED BLOOD COUNT 4.28 10*6/uL (4.50-5.90); RED CELL DISTRI WIDTH 14.4 % (0-14.5); WHITE BLOOD COUNT 6.7 10*3/uL (4.8-10.8)
[2022-03-30 08:00] VITALS: BP 154/62
[2022-03-30 12:00] VITALS: BP 141/60
[2022-03-30 16:00] VITALS: BP 140/66
[2022-03-30 20:00] VITALS: BP 141/76
[2022-03-31] VITALS: BP 141/76
[2022-03-31 08:00] VITALS: BP 104/68
[2022-03-31 12:00] VITALS: BP 106/66
[2022-03-31 16:00] VITALS: BP 148/80
[2022-03-31 20:00] VITALS: BP 136/80
[2022-04-01] VITALS: BP 126/55
[2022-04-01 06:19] LABS: BUN 15 mg/dl (7-24); CHLORIDE 104 mmol/L (98-107); CREATININE 1.24 mg/dL (0.70-1.30); POTASSIUM 3.9 mmol/L (3.5-5.1); SODIUM 138 mmol/L (136-145)
[2022-04-01 08:00] VITALS: BP 126/72
[2022-04-01] MEDS ORDERED: VIBRA-TAB100 MG PO (09:59)
[2022-04-01] MEDS ORDERED: VITAMIN D3125 MC1 PO (09:59)
== END 2022-04-01 12:00 | disposition home or self-care (01) | DRG 602 ==
LOC: ED 17:53 → EDHOLD 03-29 00:25 → 4E 03-29 00:25
PROVIDERS: Internal Medicine; Nurse Practitioner; ADMIT Internal Medicine; ATTEND Internal Medicine
DX: L03.115 Cellulitis of right lower limb (principal); N17.0 Acute kidney failure with tubular necrosis; E87.1 Hypo-osmolality and hyponatremia; B35.1 Tinea unguium; F17.210 Nicotine dependence, cigarettes, uncomplicated; Z71.6 Tobacco abuse counseling; D50.9 Iron deficiency anemia, unspecified; E11.65 Type 2 diabetes mellitus with hyperglycemia; I10 Essential (primary) hypertension; E11.42 Type 2 diabetes mellitus with diabetic polyneuropathy; Z88.2 Allergy status to sulfonamides; Z79.899 Other long term (current) drug therapy

== ENCOUNTER 2022-12-16 22:33 | Inpatient (IN) | payer OTHER, MEDICAID ==
[~2022-12-16] VITALS: Ht 177.8 cm; Wt 75.4 kg
[~2022-12-16 22:33] MED LIST changes: +ALENDRONATE SOD70 M1 PO; +CYMBALTA60 MG PO; +MYRBETRIQ50 M1 PO; +PREGABALIN300 MG PO; +QUETIAPINE FUMA25 MG PO; +TAMSULOSIN HCL0.4 MG PO; +VIBRA-TAB100 MG PO; +VITAMIN D3125 MC1 PO; +ZANAFLEX4 M2 PO
[2022-12-16 22:35] VITALS: BP 112/65
[2022-12-16 22:57] LABS: HEMATOCRIT 33.6 % (42.0-52.0); MEAN CORPUSCULAR HGB 27.8 pg (27.0-31.0); MEAN CORPUSCULAR HGB CONC 33.9 g/dl (33.0-37.0); MEAN PLATELET VOLUME 10.9 fl (9.6-12.3); PLATELET COUNT AUTOMATED 318 10*3/uL (130-400); RED CELL DISTRI WIDTH 16.6 % (0-14.5); WHITE BLOOD COUNT 29.7 10*3/uL (4.8-10.8)
[2022-12-16 22:59] LABS: MANUAL DIFF REFLEX YES
[2022-12-16 23:13] LABS: BILIRUBIN Negative (Negative); BLOOD Negative (Negative); CLARITY Cloudy (Clear); COLOR Yellow (Yellow); GLUCOSE Negative (Negative); KETONE Negative (Negative); LEUKO ESTERASE 3+ (Negative); NITRITE Positive (Negative); PH 5.5 (4.5-8.0); SPECIFIC GRAVITY 1.015 (1.001-1.030)
[2022-12-16 23:17] LABS: PLATELET SUFFICIENCY NORMAL (NORMAL); POTASSIUM 4.9 mmol/L (3.4-5.1); TOTAL CELLS COUNTED 100 #CELLS; TOTAL PROTEIN 7.2 gm/dL (6.0-8.0)
[2022-12-16 23:18] LABS: OVALOCYTES FEW; TARGET CELLS FEW
[2022-12-16 23:19] LABS: TOXIC GRANULATION SLIGHT
[2022-12-16 23:37] LABS: BACTERIA 3+; WBC TNTC wbc/hpf (0-5)
[2022-12-17] VITALS (10 sets, daily range): BP systolic 84–126; BP diastolic 26–96
[2022-12-17 05:42] LABS: ALKALINE PHOSPHATASE 60 U/L (46-116); BUN 29 mg/dl (9-23); CHLORIDE 102 mmol/L (98-107); CHOLESTEROL 76 mg/dL (<200); FREE T4 1.03 ng/dl (0.89-1.76); SGPT/ALT 7 U/L (10-49); THYROID STIM HORMONE (HS) 0.287 uIU/ml (0.550-4.780); TOTAL PROTEIN 5.6 gm/dL (6.0-8.0); TRIGLYCERIDES 77 mg/dl (<150)
[2022-12-17 06:05] LABS: HEMATOCRIT 28.9 % (42.0-52.0); MEAN CELL VOLUME 81.2 fl (80.0-94.0); MEAN CORPUSCULAR HGB 27.8 pg (27.0-31.0); MEAN CORPUSCULAR HGB CONC 34.3 g/dl (33.0-37.0); MEAN PLATELET VOLUME 12.2 fl (9.6-12.3); PLATELET COUNT AUTOMATED 234 10*3/uL (130-400); RED BLOOD COUNT 3.56 10*6/uL (4.50-5.90); RED CELL DISTRI WIDTH 16.4 % (0-14.5)
[2022-12-17 06:12] LABS: MANUAL DIFF REFLEX YES
[2022-12-17 06:14] LABS: ACT PARTIAL THROMBO TIME 40.9 SECONDS (20.0-32.1); INTERNATIONAL NORM RATIO 1.2 (2.0-3.5)
[2022-12-17 06:15] LABS: POTASSIUM 3.7 mmol/L (3.4-5.1)
[2022-12-17] MEDS ORDERED: PROVENTIL HFA6.7 GM INH (06:25)
[2022-12-17 06:37] LABS: PLATELET SUFFICIENCY NORMAL (NORMAL); TOTAL CELLS COUNTED 100 #CELLS; TOXIC GRANULATION MODERATE
[2022-12-17 06:38] LABS: OVALOCYTES FEW; POLYCHROMASIA SLIGHT
[2022-12-18] VITALS (46 sets, daily range): BP systolic 55–168; BP diastolic 34–108
[2022-12-18 05:32] LABS: ALKALINE PHOSPHATASE 83 U/L (46-116); CHLORIDE 105 mmol/L (98-107); POTASSIUM 3.7 mmol/L (3.4-5.1); SGPT/ALT 16 U/L (10-49); TOTAL PROTEIN 5.8 gm/dL (6.0-8.0)
[2022-12-18 05:58] LABS: BUN 15 mg/dl (9-23)
[2022-12-18 06:12] LABS: HEMATOCRIT 28.8 % (42.0-52.0); MEAN CELL VOLUME 82.1 fl (80.0-94.0); MEAN CORPUSCULAR HGB 27.1 pg (27.0-31.0); PLATELET COUNT AUTOMATED 178 10*3/uL (130-400); RED BLOOD COUNT 3.51 10*6/uL (4.50-5.90); RED CELL DISTRI WIDTH 16.9 % (0-14.5); WHITE BLOOD COUNT 33.1 10*3/uL (4.8-10.8)
[2022-12-18 06:15] LABS: MANUAL DIFF REFLEX YES
[2022-12-18 07:01] LABS: MICROCYTOSIS SLIGHT; PLATELET SUFFICIENCY NORMAL (NORMAL); TOTAL CELLS COUNTED 100 #CELLS
[2022-12-19] VITALS (9 sets, daily range): BP systolic 84–129; BP diastolic 44–81
[2022-12-19 05:23] LABS: ALKALINE PHOSPHATASE 69 U/L (46-116); BUN 12 mg/dl (9-23); CHLORIDE 106 mmol/L (98-107); POTASSIUM 3.5 mmol/L (3.4-5.1); SGPT/ALT 11 U/L (10-49); TOTAL PROTEIN 5.6 gm/dL (6.0-8.0)
[2022-12-19 06:06] LABS: HEMATOCRIT 25.8 % (42.0-52.0); MEAN CELL VOLUME 82.2 fl (80.0-94.0); MEAN CORPUSCULAR HGB 27.4 pg (27.0-31.0); MEAN CORPUSCULAR HGB CONC 33.3 g/dl (33.0-37.0); MEAN PLATELET VOLUME 12.3 fl (9.6-12.3); PLATELET COUNT AUTOMATED 161 10*3/uL (130-400); RED BLOOD COUNT 3.14 10*6/uL (4.50-5.90); RED CELL DISTRI WIDTH 17.1 % (0-14.5); WHITE BLOOD COUNT 24.5 10*3/uL (4.8-10.8)
[2022-12-19 06:19] LABS: MANUAL DIFF REFLEX YES
[2022-12-19 06:35] LABS: PLATELET SUFFICIENCY NORMAL (NORMAL); TOTAL CELLS COUNTED 100 #CELLS
[2022-12-20] VITALS: BP 127/70
[2022-12-20 07:12] LABS: HEMATOCRIT 24.9 % (42.0-52.0); MEAN CELL VOLUME 80.3 fl (80.0-94.0); MEAN CORPUSCULAR HGB 27.4 pg (27.0-31.0); MEAN CORPUSCULAR HGB CONC 34.1 g/dl (33.0-37.0); MEAN PLATELET VOLUME 12.8 fl (9.6-12.3); PLATELET COUNT AUTOMATED 151 10*3/uL (130-400); WHITE BLOOD COUNT 17.6 10*3/uL (4.8-10.8)
[2022-12-20 07:22] LABS: MANUAL DIFF REFLEX YES
[2022-12-20 07:40] VITALS: BP 110/62
[2022-12-20 07:41] LABS: ALKALINE PHOSPHATASE 81 U/L (46-116); BUN 11 mg/dl (9-23); CHLORIDE 105 mmol/L (98-107); POTASSIUM 3.3 mmol/L (3.4-5.1); SGPT/ALT 19 U/L (10-49); TOTAL PROTEIN 5.4 gm/dL (6.0-8.0)
[2022-12-20 07:59] LABS: PLATELET SUFFICIENCY NORMAL (NORMAL); TOTAL CELLS COUNTED 100 #CELLS
[2022-12-20 11:50] VITALS: BP 111/58
[2022-12-20 16:00] VITALS: BP 109/50
[2022-12-20 20:00] VITALS: BP 137/64
[2022-12-21] VITALS: BP 117/59
[2022-12-21 05:14] LABS: ALKALINE PHOSPHATASE 91 U/L (46-116); BUN 10 mg/dl (9-23); CHLORIDE 108 mmol/L (98-107); POTASSIUM 3.8 mmol/L (3.4-5.1); SGPT/ALT 22 U/L (10-49); TOTAL PROTEIN 5.8 gm/dL (6.0-8.0)
[2022-12-21 06:39] LABS: BASO % 0.2 % (0.0-1.0); EOS # 0.1 10*3/uL (0.0-0.4); EOS % 0.6 % (1.0-4.0); HEMATOCRIT 24.8 % (42.0-52.0); LYMPH # 1.3 10*3/uL (1.3-4.4); LYMPH % 10.4 % (27.0-41.0); MEAN CELL VOLUME 81.3 fl (80.0-94.0); MEAN CORPUSCULAR HGB 27.5 pg (27.0-31.0); MEAN CORPUSCULAR HGB CONC 33.9 g/dl (33.0-37.0); MEAN PLATELET VOLUME 12.9 fl (9.6-12.3); MONO # 0.9 10*3/uL (0.1-1.0); MONO % 7.4 % (3.0-9.0); NEUT # 10.2 10*3/uL (2.3-7.9); NEUT % 80.5 % (47.0-73.0); PLATELET COUNT AUTOMATED 173 10*3/uL (130-400); RED BLOOD COUNT 3.05 10*6/uL (4.50-5.90); RED CELL DISTRI WIDTH 17.3 % (0-14.5); WHITE BLOOD COUNT 12.7 10*3/uL (4.8-10.8)
[2022-12-21 07:50] VITALS: BP 110/52
[2022-12-21 11:35] VITALS: BP 119/64
[2022-12-21 16:00] VITALS: BP 130/62
[2022-12-21 20:00] VITALS: BP 119/53
[2022-12-22] VITALS: BP 119/55
[2022-12-22 05:25] LABS: BUN 12 mg/dl (9-23); CHLORIDE 106 mmol/L (98-107); POTASSIUM 4.3 mmol/L (3.4-5.1)
[2022-12-22 06:25] LABS: BASO % 0.1 % (0.0-1.0); EOS # 0.1 10*3/uL (0.0-0.4); EOS % 1.1 % (1.0-4.0); HEMATOCRIT 24.6 % (42.0-52.0); LYMPH # 1.5 10*3/uL (1.3-4.4); MEAN CELL VOLUME 81.2 fl (80.0-94.0); MEAN CORPUSCULAR HGB 27.1 pg (27.0-31.0); MEAN CORPUSCULAR HGB CONC 33.3 g/dl (33.0-37.0); MEAN PLATELET VOLUME 13.3 fl (9.6-12.3); MONO # 0.7 10*3/uL (0.1-1.0); MONO % 5.8 % (3.0-9.0); NEUT # 9.8 10*3/uL (2.3-7.9); NEUT % 80.3 % (47.0-73.0); PLATELET COUNT AUTOMATED 215 10*3/uL (130-400); RED BLOOD COUNT 3.03 10*6/uL (4.50-5.90); RED CELL DISTRI WIDTH 17.2 % (0-14.5); WHITE BLOOD COUNT 12.2 10*3/uL (4.8-10.8)
[2022-12-22 08:00] VITALS: BP 128/62
[2022-12-22 12:19] VITALS: BP 125/60
[2022-12-22] MEDS ORDERED: ERTAPENEM1 GM IV (15:23)
[2022-12-22] MEDS ORDERED: VANCOCIN125 M1 PO (15:23)
[2022-12-22 16:00] VITALS: BP 113/67
[2022-12-22 20:00] VITALS: BP 134/66
[2022-12-23] VITALS: BP 124/66
[2022-12-23 06:44] LABS: BASO % 0.2 % (0.0-1.0); EOS # 0.1 10*3/uL (0.0-0.4); EOS % 1.5 % (1.0-4.0); HEMATOCRIT 26.2 % (42.0-52.0); LYMPH # 1.8 10*3/uL (1.3-4.4); MEAN CELL VOLUME 83.7 fl (80.0-94.0); MEAN CORPUSCULAR HGB 26.5 pg (27.0-31.0); MEAN CORPUSCULAR HGB CONC 31.7 g/dl (33.0-37.0); MEAN PLATELET VOLUME 12.8 fl (9.6-12.3); MONO # 0.6 10*3/uL (0.1-1.0); MONO % 6.3 % (3.0-9.0); NEUT # 6.5 10*3/uL (2.3-7.9); NEUT % 71.1 % (47.0-73.0); PLATELET COUNT AUTOMATED 251 10*3/uL (130-400); RED BLOOD COUNT 3.13 10*6/uL (4.50-5.90); RED CELL DISTRI WIDTH 16.9 % (0-14.5); WHITE BLOOD COUNT 9.2 10*3/uL (4.8-10.8)
[2022-12-23 07:02] LABS: BUN 11 mg/dl (9-23); CHLORIDE 105 mmol/L (98-107); POTASSIUM 4.2 mmol/L (3.4-5.1)
[2022-12-23 08:00] VITALS: BP 138/56
[2022-12-23 12:00] VITALS: BP 131/67
[2022-12-23 16:00] VITALS: BP 131/67
[2022-12-23 20:00] VITALS: BP 118/59
[2022-12-24] VITALS: BP 137/58
[2022-12-24 08:00] VITALS: BP 125/66
[2022-12-24 12:00] VITALS: BP 125/61
[2022-12-24 15:57] VITALS: BP 136/59
[2022-12-24 20:00] VITALS: BP 143/72
[2022-12-25] VITALS: BP 149/71
[2022-12-25 04:21] LABS: HEMATOCRIT 26.7 % (42.0-52.0); MEAN CORPUSCULAR HGB 26.4 pg (27.0-31.0); MEAN CORPUSCULAR HGB CONC 31.5 g/dl (33.0-37.0); MEAN PLATELET VOLUME 11.7 fl (9.6-12.3); PLATELET COUNT AUTOMATED 318 10*3/uL (130-400); RED BLOOD COUNT 3.18 10*6/uL (4.50-5.90); RED CELL DISTRI WIDTH 16.9 % (0-14.5); WHITE BLOOD COUNT 12.3 10*3/uL (4.8-10.8)
[2022-12-25 04:22] LABS: MANUAL DIFF REFLEX YES
[2022-12-25 04:36] LABS: BUN 15 mg/dl (9-23); CHLORIDE 104 mmol/L (98-107); POTASSIUM 4.4 mmol/L (3.4-5.1)
[2022-12-25 05:00] LABS: MICROCYTOSIS SLIGHT; PLATELET SUFFICIENCY NORMAL (NORMAL); TOTAL CELLS COUNTED 100 #CELLS
[2022-12-25 08:00] VITALS: BP 131/61
[2022-12-25 12:00] VITALS: BP 121/79
[2022-12-25 16:00] VITALS: BP 118/60
[2022-12-25 20:00] VITALS: BP 132/72
[2022-12-26] VITALS: BP 125/62
[2022-12-26 04:19] LABS: BASO # 0.1 10*3/uL (0.0-0.1); BASO % 0.4 % (0.0-1.0); EOS # 0.2 10*3/uL (0.0-0.4); EOS % 1.5 % (1.0-4.0); HEMATOCRIT 27.9 % (42.0-52.0); LYMPH # 1.8 10*3/uL (1.3-4.4); LYMPH % 15.2 % (27.0-41.0); MEAN CORPUSCULAR HGB 26.8 pg (27.0-31.0); MEAN CORPUSCULAR HGB CONC 31.9 g/dl (33.0-37.0); MEAN PLATELET VOLUME 11.7 fl (9.6-12.3); MONO # 0.8 10*3/uL (0.1-1.0); MONO % 6.8 % (3.0-9.0); NEUT # 8.9 10*3/uL (2.3-7.9); NEUT % 75.2 % (47.0-73.0); PLATELET COUNT AUTOMATED 362 10*3/uL (130-400); RED BLOOD COUNT 3.32 10*6/uL (4.50-5.90); RED CELL DISTRI WIDTH 17.2 % (0-14.5); WHITE BLOOD COUNT 11.9 10*3/uL (4.8-10.8)
[2022-12-26 04:37] LABS: BUN 15 mg/dl (9-23); CHLORIDE 104 mmol/L (98-107)
[2022-12-26 08:00] VITALS: BP 110/60
[2022-12-26 12:00] VITALS: BP 117/51
[2022-12-26 16:00] VITALS: BP 114/60
[2022-12-26 17:19] LABS: URINE AMPHETAMINES Negative (1000ng/ml); URINE BARBITURATES Negative (200ng/ml); URINE BENZODIAZEPINES Negative (200ng/ml); URINE CANNABINOIDS (THC) Negative (50ng/ml); URINE COCAINE Negative (300ng/ml); URINE METHADONE Negative (300ng/ml); URINE OPIATES Negative (300ng/ml); URINE PHENCYCLIDINE Negative (25ng/ml)
[2022-12-26] MEDS ORDERED: ERTAPENEM1 GM IV (17:28)
[2022-12-26 20:00] VITALS: BP 129/64
[2022-12-27] VITALS: BP 99/49
[2022-12-27 00:12] VITALS: BP 121/64
[2022-12-27 07:29] LABS: HEMATOCRIT 30.5 % (42.0-52.0); MEAN CORPUSCULAR HGB 26.7 pg (27.0-31.0); MEAN CORPUSCULAR HGB CONC 30.5 g/dl (33.0-37.0); PLATELET COUNT AUTOMATED 373 10*3/uL (130-400); RED BLOOD COUNT 3.48 10*6/uL (4.50-5.90); RED CELL DISTRI WIDTH 17.8 % (0-14.5); WHITE BLOOD COUNT 10.5 10*3/uL (4.8-10.8)
[2022-12-27 07:30] LABS: MANUAL DIFF REFLEX YES
[2022-12-27 07:53] LABS: BUN 14 mg/dl (9-23); CHLORIDE 104 mmol/L (98-107); POTASSIUM 4.3 mmol/L (3.4-5.1)
[2022-12-27 08:00] VITALS: BP 118/73
[2022-12-27 08:09] LABS: MEAN CELL VOLUME 87.6 fl (80.0-94.0)
[2022-12-27 08:12] LABS: BASOPHILS 1 % (0-1); PLATELET SUFFICIENCY NORMAL (NORMAL); TOTAL CELLS COUNTED 100 #CELLS
[2022-12-27 12:00] VITALS: BP 172/73
[2022-12-27 16:00] VITALS: BP 112/69
[2022-12-27 20:00] VITALS: BP 121/72
[2022-12-28] VITALS: BP 120/80
[2022-12-28 06:58] LABS: BASO # 0.1 10*3/uL (0.0-0.1); BASO % 0.5 % (0.0-1.0); EOS # 0.2 10*3/uL (0.0-0.4); EOS % 2.3 % (1.0-4.0); HEMATOCRIT 30.3 % (42.0-52.0); LYMPH # 1.7 10*3/uL (1.3-4.4); LYMPH % 18.6 % (27.0-41.0); MEAN CELL VOLUME 88.1 fl (80.0-94.0); MEAN CORPUSCULAR HGB 26.5 pg (27.0-31.0); MEAN PLATELET VOLUME 11.7 fl (9.6-12.3); MONO # 0.6 10*3/uL (0.1-1.0); MONO % 6.4 % (3.0-9.0); NEUT # 6.7 10*3/uL (2.3-7.9); NEUT % 71.1 % (47.0-73.0); PLATELET COUNT AUTOMATED 343 10*3/uL (130-400); RED BLOOD COUNT 3.44 10*6/uL (4.50-5.90); RED CELL DISTRI WIDTH 17.6 % (0-14.5); WHITE BLOOD COUNT 9.4 10*3/uL (4.8-10.8)
[2022-12-28 07:20] LABS: BUN 17 mg/dl (9-23); CHLORIDE 104 mmol/L (98-107)
[2022-12-28 08:00] VITALS: BP 97/50
[2022-12-28 12:00] VITALS: BP 114/62
[2022-12-28 16:00] VITALS: BP 103/76
[2022-12-28 20:00] VITALS: BP 120/81
[2022-12-29 00:35] VITALS: BP 130/70
[2022-12-29 07:02] LABS: BASO # 0.1 10*3/uL (0.0-0.1); BASO % 0.6 % (0.0-1.0); EOS # 0.3 10*3/uL (0.0-0.4); HEMATOCRIT 31.2 % (42.0-52.0); LYMPH # 1.9 10*3/uL (1.3-4.4); LYMPH % 21.5 % (27.0-41.0); MEAN CELL VOLUME 87.2 fl (80.0-94.0); MEAN CORPUSCULAR HGB 26.5 pg (27.0-31.0); MEAN CORPUSCULAR HGB CONC 30.4 g/dl (33.0-37.0); MEAN PLATELET VOLUME 12.2 fl (9.6-12.3); MONO # 0.6 10*3/uL (0.1-1.0); MONO % 6.3 % (3.0-9.0); NEUT # 6.1 10*3/uL (2.3-7.9); NEUT % 67.8 % (47.0-73.0); PLATELET COUNT AUTOMATED 387 10*3/uL (130-400); RED BLOOD COUNT 3.58 10*6/uL (4.50-5.90); RED CELL DISTRI WIDTH 17.6 % (0-14.5)
[2022-12-29 07:35] LABS: BUN 21 mg/dl (9-23); CHLORIDE 104 mmol/L (98-107); POTASSIUM 4.2 mmol/L (3.4-5.1)
[2022-12-29 08:00] VITALS: BP 114/63
[2022-12-29 12:00] VITALS: BP 141/92
[2022-12-29 16:00] VITALS: BP 115/84
[2022-12-29 20:00] VITALS: BP 112/61
[2022-12-30] VITALS: BP 116/62
[2022-12-30 06:12] LABS: BASO % 0.5 % (0.0-1.0); EOS # 0.3 10*3/uL (0.0-0.4); EOS % 3.9 % (1.0-4.0); HEMATOCRIT 30.2 % (42.0-52.0); LYMPH # 2.2 10*3/uL (1.3-4.4); LYMPH % 28.8 % (27.0-41.0); MEAN CORPUSCULAR HGB 27.4 pg (27.0-31.0); MEAN CORPUSCULAR HGB CONC 31.5 g/dl (33.0-37.0); MEAN PLATELET VOLUME 12.2 fl (9.6-12.3); MONO # 0.5 10*3/uL (0.1-1.0); MONO % 7.1 % (3.0-9.0); NEUT # 4.4 10*3/uL (2.3-7.9); NEUT % 58.9 % (47.0-73.0); PLATELET COUNT AUTOMATED 368 10*3/uL (130-400); RED BLOOD COUNT 3.47 10*6/uL (4.50-5.90); RED CELL DISTRI WIDTH 17.8 % (0-14.5); WHITE BLOOD COUNT 7.5 10*3/uL (4.8-10.8)
[2022-12-30 06:53] LABS: BUN 25 mg/dl (9-23); CHLORIDE 104 mmol/L (98-107)
[2022-12-30 08:00] VITALS: BP 111/59
[2022-12-30 12:00] VITALS: BP 94/53
[2022-12-30 16:00] VITALS: BP 118/69
[2022-12-30 20:00] VITALS: BP 120/72
[2022-12-31] VITALS: BP 117/74
[2022-12-31 08:00] VITALS: BP 132/68
[2022-12-31 12:00] VITALS: BP 133/74
[2022-12-31 16:00] VITALS: BP 134/66
[2022-12-31 20:00] VITALS: BP 119/71
[2023-01-01] VITALS: BP 92/59
[2023-01-01 08:00] VITALS: BP 104/52
[2023-01-01 12:00] VITALS: BP 132/75
[2023-01-01] MEDS ORDERED: ERTAPENEM1 GM IV (15:35)
[2023-01-01] MEDS ORDERED: VANCOCIN125 M1 PO (15:35)
[2023-01-01 16:00] VITALS: BP 129/60
== END 2023-01-01 16:40 | DRG 871 ==
LOC: ED 22:33 → ICCU 12-17 01:37 → 5E 12-17 01:37 → EDHOLD 12-17 01:37 → 4E 12-17 01:37 → ICCU 12-18 05:40 → 5E 12-19 14:35
PROVIDERS: Family Medicine; Internal Medicine; Student in an Organized Health Care Education/Training Program; ADMIT Internal Medicine; ATTEND Internal Medicine
PROC: 05HY33Z Insertion of Infusion Device into Upper Vein, Percutaneous Approach (ICD-10-PCS; 2022-12-18)
PROC: B54MZZA Ultrasonography of Right Upper Extremity Veins, Guidance (ICD-10-PCS; 2022-12-18)
PROC: BD1BYZZ Fluoroscopy of Mouth/Oropharynx using Other Contrast (ICD-10-PCS; 2022-12-21)
PROC: 02HV33Z Insertion of Infusion Device into Superior Vena Cava, Percutaneous Approach (ICD-10-PCS; principal; 2022-12-25)
PROC: B548ZZA Ultrasonography of Superior Vena Cava, Guidance (ICD-10-PCS; 2022-12-25)
DX: A41.51 Sepsis due to Escherichia coli [E. coli] (principal); E43 Unspecified severe protein-calorie malnutrition; J69.0 Pneumonitis due to inhalation of food and vomit; N17.0 Acute kidney failure with tubular necrosis; R65.21 Severe sepsis with septic shock; L03.115 Cellulitis of right lower limb; E87.1 Hypo-osmolality and hyponatremia; N30.00 Acute cystitis without hematuria; A04.72 Enterocolitis due to Clostridium difficile, not specified as recurrent; E87.20 Acidosis, unspecified; D64.9 Anemia, unspecified; F17.210 Nicotine dependence, cigarettes, uncomplicated; E11.65 Type 2 diabetes mellitus with hyperglycemia; Z71.6 Tobacco abuse counseling; E83.42 Hypomagnesemia; I10 Essential (primary) hypertension; E78.2 Mixed hyperlipidemia; F32.A Depression, unspecified; E11.42 Type 2 diabetes mellitus with diabetic polyneuropathy; E11.51 Type 2 diabetes mellitus with diabetic peripheral angiopathy without gangrene; R00.1 Bradycardia, unspecified; E83.51 Hypocalcemia; E87.6 Hypokalemia; T14.8XXA Other injury of unspecified body region, initial encounter; L08.9 Local infection of the skin and subcutaneous tissue, unspecified; F41.9 Anxiety disorder, unspecified; K21.9 Gastro-esophageal reflux disease without esophagitis; K82.8 Other specified diseases of gallbladder; Z96.643 Presence of artificial hip joint, bilateral; M48.061 Spinal stenosis, lumbar region without neurogenic claudication; M51.26 Other intervertebral disc displacement, lumbar region; L89.152 Pressure ulcer of sacral region, stage 2; L89.320 Pressure ulcer of left buttock, unstageable; Y92.89 Other specified places as the place of occurrence of the external cause; Z88.2 Allergy status to sulfonamides; Z82.49 Family history of ischemic heart disease and other diseases of the circulatory system; Z83.3 Family history of diabetes mellitus; Z68.25 Body mass index [BMI] 25.0-25.9, adult

== ENCOUNTER → 2023-01-04 | Outpatient (CLI) | payer OTHER ==
[~2023-01-04] MED LIST changes: +ERTAPENEM1 GM IV; +PROVENTIL HFA6.7 GM INH; +VANCOCIN125 M1 PO
== END | disposition home or self-care (01) ==
LOC: WOUNDCARE 01:05
PROVIDERS: ATTEND Nurse Practitioner Family
DX: L89.323 Pressure ulcer of left buttock, stage 3 (principal); L89.890 Pressure ulcer of other site, unstageable; L89.150 Pressure ulcer of sacral region, unstageable; S90.414A Abrasion, right lesser toe(s), initial encounter; S80.11XA Contusion of right lower leg, initial encounter; T21.19XA Burn of first degree of other site of trunk, initial encounter; T31.0 Burns involving less than 10% of body surface; E11.51 Type 2 diabetes mellitus with diabetic peripheral angiopathy without gangrene; E11.69 Type 2 diabetes mellitus with other specified complication; M86.9 Osteomyelitis, unspecified; E11.40 Type 2 diabetes mellitus with diabetic neuropathy, unspecified; M81.0 Age-related osteoporosis without current pathological fracture; E78.5 Hyperlipidemia, unspecified; G25.81 Restless legs syndrome; G89.29 Other chronic pain; I10 Essential (primary) hypertension; M48.00 Spinal stenosis, site unspecified; M19.90 Unspecified osteoarthritis, unspecified site; K21.9 Gastro-esophageal reflux disease without esophagitis; F17.290 Nicotine dependence, other tobacco product, uncomplicated; F41.9 Anxiety disorder, unspecified; F32.A Depression, unspecified; Z96.643 Presence of artificial hip joint, bilateral; Y93.89 Activity, other specified; Y99.8 Other external cause status; X08.8XXA Exposure to other specified smoke, fire and flames, initial encounter; X58.XXXA Exposure to other specified factors, initial encounter; Y92.89 Other specified places as the place of occurrence of the external cause

== ENCOUNTER → 2023-02-22 | Outpatient (CLI) | payer OTHER | END | disposition home or self-care (01) | LOC: WOUNDCARE 01-18 02:22 | PROVIDERS: ATTEND Nurse Practitioner Family | DX: E11.621 Type 2 diabetes mellitus with foot ulcer (principal); L97.411 Non-pressure chronic ulcer of right heel and midfoot limited to breakdown of skin; L89.323 Pressure ulcer of left buttock, stage 3; L89.893 Pressure ulcer of other site, stage 3; E11.51 Type 2 diabetes mellitus with diabetic peripheral angiopathy without gangrene; E11.69 Type 2 diabetes mellitus with other specified complication; M86.9 Osteomyelitis, unspecified; E11.40 Type 2 diabetes mellitus with diabetic neuropathy, unspecified; I10 Essential (primary) hypertension; E78.5 Hyperlipidemia, unspecified; G25.81 Restless legs syndrome; K21.9 Gastro-esophageal reflux disease without esophagitis; M48.00 Spinal stenosis, site unspecified; M19.90 Unspecified osteoarthritis, unspecified site; M85.80 Other specified disorders of bone density and structure, unspecified site; F41.9 Anxiety disorder, unspecified; F32.A Depression, unspecified; F17.290 Nicotine dependence, other tobacco product, uncomplicated; Z96.643 Presence of artificial hip joint, bilateral ==

== ENCOUNTER → 2023-02-27 | Outpatient (CLI) | payer OTHER | END | disposition home or self-care (01) | LOC: WOUNDCARE 01:40 | PROVIDERS: ATTEND Nurse Practitioner Family | DX: L89.152 Pressure ulcer of sacral region, stage 2 (principal); L89.323 Pressure ulcer of left buttock, stage 3; L89.893 Pressure ulcer of other site, stage 3; E11.621 Type 2 diabetes mellitus with foot ulcer; L97.411 Non-pressure chronic ulcer of right heel and midfoot limited to breakdown of skin; E11.51 Type 2 diabetes mellitus with diabetic peripheral angiopathy without gangrene; E11.69 Type 2 diabetes mellitus with other specified complication; M86.9 Osteomyelitis, unspecified; E11.40 Type 2 diabetes mellitus with diabetic neuropathy, unspecified; E78.5 Hyperlipidemia, unspecified; I10 Essential (primary) hypertension; G89.29 Other chronic pain; G25.81 Restless legs syndrome; K21.9 Gastro-esophageal reflux disease without esophagitis; M48.00 Spinal stenosis, site unspecified; M19.90 Unspecified osteoarthritis, unspecified site; M85.80 Other specified disorders of bone density and structure, unspecified site; F32.A Depression, unspecified; F41.9 Anxiety disorder, unspecified; F17.290 Nicotine dependence, other tobacco product, uncomplicated; Z96.643 Presence of artificial hip joint, bilateral ==

== ENCOUNTER → 2023-03-06 | Outpatient (CLI) | payer OTHER | END | disposition home or self-care (01) | LOC: WOUNDCARE 00:56 | PROVIDERS: ATTEND Nurse Practitioner Family | DX: L89.323 Pressure ulcer of left buttock, stage 3 (principal); L89.152 Pressure ulcer of sacral region, stage 2; L89.893 Pressure ulcer of other site, stage 3; E11.621 Type 2 diabetes mellitus with foot ulcer; L97.411 Non-pressure chronic ulcer of right heel and midfoot limited to breakdown of skin; E11.51 Type 2 diabetes mellitus with diabetic peripheral angiopathy without gangrene; E11.69 Type 2 diabetes mellitus with other specified complication; M86.9 Osteomyelitis, unspecified; E11.40 Type 2 diabetes mellitus with diabetic neuropathy, unspecified; E78.5 Hyperlipidemia, unspecified; G89.29 Other chronic pain; G25.81 Restless legs syndrome; I10 Essential (primary) hypertension; M48.00 Spinal stenosis, site unspecified; M85.80 Other specified disorders of bone density and structure, unspecified site; K21.9 Gastro-esophageal reflux disease without esophagitis; F32.A Depression, unspecified; F41.9 Anxiety disorder, unspecified; F17.290 Nicotine dependence, other tobacco product, uncomplicated; Z96.643 Presence of artificial hip joint, bilateral ==

== ENCOUNTER → 2023-03-20 | Outpatient (CLI) | payer OTHER ==
[~2023-03-20] MED LIST changes: +CHOLESTYRAMINE P4 GM PO; +ONDANSETRON HYDR4 M1 PO
== END | disposition home or self-care (01) ==
LOC: WOUNDCARE 01:53
PROVIDERS: ATTEND Nurse Practitioner Family
DX: L89.893 Pressure ulcer of other site, stage 3 (principal); E11.621 Type 2 diabetes mellitus with foot ulcer; L97.411 Non-pressure chronic ulcer of right heel and midfoot limited to breakdown of skin; L89.323 Pressure ulcer of left buttock, stage 3; L89.152 Pressure ulcer of sacral region, stage 2; L97.511 Non-pressure chronic ulcer of other part of right foot limited to breakdown of skin; E11.51 Type 2 diabetes mellitus with diabetic peripheral angiopathy without gangrene; E11.69 Type 2 diabetes mellitus with other specified complication; M86.9 Osteomyelitis, unspecified; E11.40 Type 2 diabetes mellitus with diabetic neuropathy, unspecified; E78.5 Hyperlipidemia, unspecified; K21.9 Gastro-esophageal reflux disease without esophagitis; I10 Essential (primary) hypertension; G89.29 Other chronic pain; G25.81 Restless legs syndrome; M85.80 Other specified disorders of bone density and structure, unspecified site; M48.00 Spinal stenosis, site unspecified; M19.90 Unspecified osteoarthritis, unspecified site; F41.9 Anxiety disorder, unspecified; F32.A Depression, unspecified; F17.290 Nicotine dependence, other tobacco product, uncomplicated; Z96.643 Presence of artificial hip joint, bilateral

== ENCOUNTER 2024-07-12 14:12 | Inpatient (IN) | payer OTHER ==
[~2024-07-12] VITALS: Ht 180.3 cm; Wt 90.0 kg
[~2024-07-12 14:12] MED LIST changes: +PREMIERPRO RX500 M2 IV
[2024-07-12 14:21] VITALS: BP 151/74
[2024-07-12] MEDS ORDERED: SODIUM CHLORIDE 0.9% 1,000 ML IV ONE ×3 (14:30→15:30)
[2024-07-12 14:54] LABS: HEMATOCRIT 30.5 % (42.0-52.0); MEAN CELL VOLUME 73.8 fl (80.0-94.0); MEAN CORPUSCULAR HGB 22.8 pg (27.0-31.0); MEAN CORPUSCULAR HGB CONC 30.8 g/dl (33.0-37.0); PLATELET COUNT AUTOMATED 196 10*3/uL (130-400); RED BLOOD COUNT 4.13 10*6/uL (4.50-5.90); RED CELL DISTRI WIDTH 19.5 % (0-14.5); WHITE BLOOD COUNT 11.9 10*3/uL (4.8-10.8)
[2024-07-12] MEDS ORDERED: Piperacillin Sodium/Tazobact 50 ML IV ONE (15:05)
[2024-07-12] MEDS ORDERED: Vancomycin Hydrochloride 250 ML IV ONE (15:05)
[2024-07-12 15:07] LABS: BILIRUBIN Negative (Negative); BLOOD 1+ (Negative); CLARITY Cloudy (Clear); COLOR Yellow (Yellow); GLUCOSE Negative (Negative); KETONE Negative (Negative); LEUKO ESTERASE 3+ (Negative); NITRITE Positive (Negative); PH 5.5 (4.5-8.0); SPECIFIC GRAVITY 1.015 (1.001-1.030)
[2024-07-12 15:15] LABS: BACTERIA 3+; WBC TNTC wbc/hpf (0-5)
[2024-07-12 15:15] LABS: MANUAL DIFF REFLEX YES; POTASSIUM 4.2 mmol/L (3.4-5.1)
[2024-07-12 15:17] LABS: TOTAL CELLS COUNTED 100 #CELLS
[2024-07-12 15:18] LABS: PLATELET SUFFICIENCY NORMAL (NORMAL)
[2024-07-12] MEDS ORDERED: ACETAMINOPHEN 325 MG TAB PO ONE (15:35)
[2024-07-12] MEDS ORDERED: ACETAMINOPHEN 325 MG TAB PO PRN (16:20)
[2024-07-12] MEDS ORDERED: BISACODYL 10 MG SUPP R PRN (16:20)
[2024-07-12] MEDS ORDERED: BISACODYL 5 MG TAB PO PRN (16:20)
[2024-07-12] MEDS ORDERED: Ondansetron Hydrochloride 4 MG/2 ML VIAL IV PRN (16:20)
[2024-07-12] MEDS ORDERED: Acetaminophen/Hydrocodone 5 MG/325 MG TABLET PO PRN (16:20)
[2024-07-12] MEDS ORDERED: ANORO ELLIPTA1 EACH INH (16:53)
[2024-07-12] MEDS ORDERED: TESTOSTERO200 MG/1 M IM (16:54)
[2024-07-12] MEDS ORDERED: TRADJENTA5 M1 PO (16:55)
[2024-07-12] MEDS ORDERED: TYLENOL325 M1 PO (16:57)
[2024-07-12] MEDS ORDERED: SODIUM CHLORIDE 0.9% 500 ML IV ONE (18:10)
[2024-07-12 18:12] VITALS: BP 112/45
[2024-07-12 19:53] VITALS: BP 104/47
[2024-07-12] MEDS ORDERED: Piperacillin Sodium/Tazobact 50 ML IV SCH (22:00)
[2024-07-12 23:43] VITALS: BP 112/46
[2024-07-13 02:24] VITALS: BP 123/43
[2024-07-13 04:33] VITALS: BP 135/61
[2024-07-13 05:24] LABS: ALKALINE PHOSPHATASE 55 U/L (46-116); CHLORIDE 108 mmol/L (98-107); CHOLESTEROL 103 mg/dL (<200); SGPT/ALT 18 U/L (5-49); TOTAL PROTEIN 6.2 gm/dL (6.0-8.0); TRIGLYCERIDES 119 mg/dl (<150)
[2024-07-13 05:25] LABS: VITAMIN D, 25-HYDROXY 40.2 ng/mL (30-100)
[2024-07-13 05:35] LABS: BUN 20 mg/dl (9-23)
[2024-07-13] MEDS ORDERED: VANCOMYCIN/WATER FOR INJ (PEG) 250 ML IV SCH (06:00)
[2024-07-13 06:10] LABS: HEMATOCRIT 28.2 % (42.0-52.0); MEAN CELL VOLUME 74.4 fl (80.0-94.0); MEAN CORPUSCULAR HGB 22.7 pg (27.0-31.0); MEAN CORPUSCULAR HGB CONC 30.5 g/dl (33.0-37.0); PLATELET COUNT AUTOMATED 189 10*3/uL (130-400); RED BLOOD COUNT 3.79 10*6/uL (4.50-5.90); RED CELL DISTRI WIDTH 19.9 % (0-14.5); WHITE BLOOD COUNT 8.3 10*3/uL (4.8-10.8)
[2024-07-13 07:11] LABS: MANUAL DIFF REFLEX YES
[2024-07-13 07:15] LABS: MICROCYTOSIS SLIGHT; OVALOCYTES FEW; PLATELET SUFFICIENCY NORMAL (NORMAL); POLYCHROMASIA SLIGHT; TOTAL CELLS COUNTED 100 #CELLS
[2024-07-13] MEDS ORDERED: OXYCODONE HCL (IR) 10 MG TABLET PO PRN (12:25)
[2024-07-13 16:00] VITALS: BP 124/75
[2024-07-13 17:40] VITALS: BP 144/62
[2024-07-13] MEDS ORDERED: NICOTINE POLACRILEX 4 MG GUM PO PRN (17:55)
[2024-07-13] MEDS ORDERED: OMEPRAZOLE 20 MG CAP PO SCH (18:05)
[2024-07-13 20:00] VITALS: BP 138/63
[2024-07-13] MEDS ORDERED: PREGABALIN300 MG PO (22:05)
[2024-07-13] MEDS ORDERED: clonAZEPAM 1 MG TAB PO SCH (22:23)
[2024-07-13] MEDS ORDERED: PREGABALIN 50 MG CAP PO SCH (22:23)
[2024-07-14] VITALS: BP 118/45
[2024-07-14] MEDS ORDERED: Meropenem 500 MG in SODIUM CHLORIDE 0.9% 50 ML IV SCH (04:00)
[2024-07-14 06:25] LABS: BUN 12 mg/dl (9-23); CHLORIDE 107 mmol/L (98-107); POTASSIUM 3.8 mmol/L (3.4-5.1)
[2024-07-14 06:35] LABS: HEMATOCRIT 26.2 % (42.0-52.0); MEAN CORPUSCULAR HGB 22.9 pg (27.0-31.0); MEAN CORPUSCULAR HGB CONC 30.9 g/dl (33.0-37.0); PLATELET COUNT AUTOMATED 194 10*3/uL (130-400); RED BLOOD COUNT 3.54 10*6/uL (4.50-5.90); RED CELL DISTRI WIDTH 19.9 % (0-14.5); WHITE BLOOD COUNT 5.9 10*3/uL (4.8-10.8)
[2024-07-14 06:46] LABS: MANUAL DIFF REFLEX YES
[2024-07-14 07:37] LABS: BASOPHILS 1 % (0-1); MICROCYTOSIS SLIGHT; OVALOCYTES FEW; PLATELET SUFFICIENCY NORMAL (NORMAL); POLYCHROMASIA SLIGHT; ROULEAUX SLIGHT; SCHISTOCYTES FEW; TARGET CELLS FEW; TOTAL CELLS COUNTED 100 #CELLS
[2024-07-14 08:00] VITALS: BP 129/53
[2024-07-14] MEDS ORDERED: Meropenem 500 MG IV ONE (09:29)
[2024-07-14] MEDS ORDERED: SODIUM CHLORIDE 0.9% 50 ML BAG IV ONE (09:29)
[2024-07-14] MEDS ORDERED: fentaNYL CITRATE 100 MCG/2 ML VIAL IV PRN (09:45)
[2024-07-14] MEDS ORDERED: Duloxetine Hydrochloride 30 MG CAP PO SCH (10:00)
[2024-07-14] MEDS ORDERED: Tamsulosin Hydrochloride 0.4 MG CAP PO SCH (10:00)
[2024-07-14] MEDS ORDERED: Cholecalciferol 5,000 IU CAP (125 MCG) PO SCH (10:00)
[2024-07-14] MEDS ORDERED: amLODIPine besylate 5 MG TAB PO SCH (10:00)
[2024-07-14 12:00] VITALS: BP 119/62
[2024-07-14] MEDS ORDERED: Menthol/Zinc Oxide 4 GM THIN T PRN (13:30)
[2024-07-14] MEDS ORDERED: FOAM BANDAGE 5X5 T ONE (15:51)
[2024-07-14 16:00] VITALS: BP 116/52
[2024-07-14] MEDS ORDERED: ATORVASTATIN CALCIUM 20 MG TAB PO SCH (18:00)
[2024-07-14 20:00] VITALS: BP 133/63
[2024-07-14] MEDS ORDERED: Menthol/Zinc Oxide 4 GM THIN T SCH (22:00)
[2024-07-14] MEDS ORDERED: Montelukast Sodium 10 MG TAB PO SCH (22:00)
[2024-07-14] MEDS ORDERED: QUETIAPINE FUMARATE 25 MG TAB PO SCH (22:00)
[2024-07-15] VITALS: BP 104/58
[2024-07-15 06:23] LABS: HEMATOCRIT 27.7 % (42.0-52.0); MEAN CELL VOLUME 73.5 fl (80.0-94.0); MEAN CORPUSCULAR HGB 22.5 pg (27.0-31.0); MEAN CORPUSCULAR HGB CONC 30.7 g/dl (33.0-37.0); PLATELET COUNT AUTOMATED 198 10*3/uL (130-400); RED BLOOD COUNT 3.77 10*6/uL (4.50-5.90); RED CELL DISTRI WIDTH 20.1 % (0-14.5); WHITE BLOOD COUNT 4.8 10*3/uL (4.8-10.8)
[2024-07-15 06:26] LABS: MANUAL DIFF REFLEX YES
[2024-07-15 06:41] LABS: BUN 9 mg/dl (9-23); CHLORIDE 108 mmol/L (98-107); POTASSIUM 4.1 mmol/L (3.4-5.1)
[2024-07-15 07:15] LABS: ATYPICAL LYMPHS 1 % (0-0); OVALOCYTES FEW; PLATELET SUFFICIENCY NORMAL (NORMAL); POLYCHROMASIA SLIGHT; ROULEAUX SLIGHT; TARGET CELLS FEW; TOTAL CELLS COUNTED 100 #CELLS
[2024-07-15 07:16] LABS: MICROCYTOSIS SLIGHT
[2024-07-15 08:00] VITALS: BP 130/62
[2024-07-15] MEDS ORDERED: OXYCODONE HCL (IR) 10 MG TABLET PO PRN ×2 (08:05→09:20)
[2024-07-15] MEDS ORDERED: Sodium Hypochlorite 0.125% (1/4 STRENGTH DAKIN'S) 480 ML SOL T SCH (10:00)
[2024-07-15 12:00] VITALS: BP 113/62
[2024-07-15] MEDS ORDERED: ERTAPENEM1 GM IV ×2 (13:44→18:07)
[2024-07-15] MEDS ORDERED: HEPARIN SODIUM 300 UNITS/3 ML SYR IV SCH (15:00)
[2024-07-15] MEDS ORDERED: SODIUM CHLORIDE 0.9% 10 ML SYR IV PRN (15:00)
[2024-07-15 16:00] VITALS: BP 116/60
[2024-07-15 20:00] VITALS: BP 132/69
[2024-07-16] VITALS: BP 101/48
[2024-07-16] MEDS ORDERED: ALENDRONATE SODIUM 70 MG TAB PO SCH (07:00)
[2024-07-16 08:00] VITALS: BP 142/89
[2024-07-16 12:00] VITALS: BP 129/71
[2024-07-16] MEDS ORDERED: PREGABALIN 75 MG CAP PO SCH (22:00)
== END 2024-07-16 17:45 | disposition home health service (06) | DRG 871 ==
LOC: ED 14:12 → EDHOLD 15:32 → 4E 15:32 → EDHOLD 07-13 16:01 → 4E 07-13 16:58
PROVIDERS: Nurse Practitioner Family; Student in an Organized Health Care Education/Training Program; ADMIT Student in an Organized Health Care Education/Training Program; ATTEND Student in an Organized Health Care Education/Training Program
PROC: 02HV33Z Insertion of Infusion Device into Superior Vena Cava, Percutaneous Approach (ICD-10-PCS; principal; 2024-07-15)
DX: A41.89 Other specified sepsis (principal); E43 Unspecified severe protein-calorie malnutrition; L89.894 Pressure ulcer of other site, stage 4; L89.153 Pressure ulcer of sacral region, stage 3; N17.0 Acute kidney failure with tubular necrosis; E87.1 Hypo-osmolality and hyponatremia; E87.20 Acidosis, unspecified; N39.0 Urinary tract infection, site not specified; L03.317 Cellulitis of buttock; L02.31 Cutaneous abscess of buttock; G82.20 Paraplegia, unspecified; D84.9 Immunodeficiency, unspecified; A04.72 Enterocolitis due to Clostridium difficile, not specified as recurrent; M86.652 Other chronic osteomyelitis, left thigh; L89.320 Pressure ulcer of left buttock, unstageable; F41.9 Anxiety disorder, unspecified; G89.29 Other chronic pain; M54.9 Dorsalgia, unspecified; K21.9 Gastro-esophageal reflux disease without esophagitis; E78.5 Hyperlipidemia, unspecified; I10 Essential (primary) hypertension; E11.40 Type 2 diabetes mellitus with diabetic neuropathy, unspecified; M85.88 Other specified disorders of bone density and structure, other site; E11.51 Type 2 diabetes mellitus with diabetic peripheral angiopathy without gangrene; F32.9 Major depressive disorder, single episode, unspecified; K82.8 Other specified diseases of gallbladder; E11.69 Type 2 diabetes mellitus with other specified complication; E11.65 Type 2 diabetes mellitus with hyperglycemia; F17.210 Nicotine dependence, cigarettes, uncomplicated; Z96.642 Presence of left artificial hip joint; Z96.641 Presence of right artificial hip joint; Z79.899 Other long term (current) drug therapy; Z79.01 Long term (current) use of anticoagulants; Z79.2 Long term (current) use of antibiotics; Z88.2 Allergy status to sulfonamides; Z83.3 Family history of diabetes mellitus; Z82.49 Family history of ischemic heart disease and other diseases of the circulatory system; Z71.6 Tobacco abuse counseling; Z98.1 Arthrodesis status; Z68.27 Body mass index [BMI] 27.0-27.9, adult

== ENCOUNTER → 2024-08-06 | Outpatient (CLI) | payer OTHER ==
[~2024-08-06] MED LIST changes: +ANORO ELLIPTA1 EACH INH; +TRADJENTA5 M1 PO; +TYLENOL325 M1 PO
== END | disposition home or self-care (01) ==
LOC: WOUNDCARE 01:31
PROVIDERS: ATTEND Nurse Practitioner Family
DX: L89.324 Pressure ulcer of left buttock, stage 4 (principal); L89.153 Pressure ulcer of sacral region, stage 3; E11.51 Type 2 diabetes mellitus with diabetic peripheral angiopathy without gangrene; E11.69 Type 2 diabetes mellitus with other specified complication; M86.9 Osteomyelitis, unspecified; I10 Essential (primary) hypertension; E78.5 Hyperlipidemia, unspecified; K21.9 Gastro-esophageal reflux disease without esophagitis; E11.40 Type 2 diabetes mellitus with diabetic neuropathy, unspecified; G25.81 Restless legs syndrome; F17.210 Nicotine dependence, cigarettes, uncomplicated; F32.A Depression, unspecified; F41.9 Anxiety disorder, unspecified; Z96.643 Presence of artificial hip joint, bilateral; Z79.899 Other long term (current) drug therapy

== ENCOUNTER → 2024-08-11 | Outpatient (CLI) | payer OTHER | END | disposition home or self-care (01) | LOC: CANPRECLI → WOUNDCARE 03:00 | PROVIDERS: ATTEND Nurse Practitioner Family | DX: M86.652 Other chronic osteomyelitis, left thigh (principal); E11.69 Type 2 diabetes mellitus with other specified complication; L89.324 Pressure ulcer of left buttock, stage 4; L89.153 Pressure ulcer of sacral region, stage 3; E11.51 Type 2 diabetes mellitus with diabetic peripheral angiopathy without gangrene; E11.40 Type 2 diabetes mellitus with diabetic neuropathy, unspecified; I10 Essential (primary) hypertension; E78.5 Hyperlipidemia, unspecified; K21.9 Gastro-esophageal reflux disease without esophagitis; G25.81 Restless legs syndrome; F17.210 Nicotine dependence, cigarettes, uncomplicated; F32.A Depression, unspecified; F41.9 Anxiety disorder, unspecified; Z96.643 Presence of artificial hip joint, bilateral; Z79.899 Other long term (current) drug therapy ==

== ENCOUNTER → 2024-08-12 | Outpatient (CLI) | payer OTHER | END | disposition home or self-care (01) | LOC: WOUNDCARE 01:56 | PROVIDERS: ATTEND Nurse Practitioner Family | DX: M86.652 Other chronic osteomyelitis, left thigh (principal); E11.69 Type 2 diabetes mellitus with other specified complication; L89.324 Pressure ulcer of left buttock, stage 4; L89.153 Pressure ulcer of sacral region, stage 3; E11.51 Type 2 diabetes mellitus with diabetic peripheral angiopathy without gangrene; E11.40 Type 2 diabetes mellitus with diabetic neuropathy, unspecified; I10 Essential (primary) hypertension; E78.5 Hyperlipidemia, unspecified; K21.9 Gastro-esophageal reflux disease without esophagitis; G25.81 Restless legs syndrome; F17.210 Nicotine dependence, cigarettes, uncomplicated; F32.A Depression, unspecified; F41.9 Anxiety disorder, unspecified; Z96.643 Presence of artificial hip joint, bilateral; Z79.899 Other long term (current) drug therapy ==

== ENCOUNTER → 2024-08-13 | Outpatient (CLI) | payer OTHER | END | disposition home or self-care (01) | LOC: WOUNDCARE 03:18 | PROVIDERS: ATTEND Nurse Practitioner Family | DX: M86.652 Other chronic osteomyelitis, left thigh (principal); E11.69 Type 2 diabetes mellitus with other specified complication; L89.324 Pressure ulcer of left buttock, stage 4; L89.153 Pressure ulcer of sacral region, stage 3; E11.51 Type 2 diabetes mellitus with diabetic peripheral angiopathy without gangrene; G82.20 Paraplegia, unspecified; E11.40 Type 2 diabetes mellitus with diabetic neuropathy, unspecified; E78.5 Hyperlipidemia, unspecified; I10 Essential (primary) hypertension; M48.00 Spinal stenosis, site unspecified; M19.90 Unspecified osteoarthritis, unspecified site; K21.9 Gastro-esophageal reflux disease without esophagitis; G89.29 Other chronic pain; M85.89 Other specified disorders of bone density and structure, multiple sites; G25.81 Restless legs syndrome; F41.9 Anxiety disorder, unspecified; F32.A Depression, unspecified; F17.290 Nicotine dependence, other tobacco product, uncomplicated; F17.210 Nicotine dependence, cigarettes, uncomplicated; Z71.6 Tobacco abuse counseling; Z96.643 Presence of artificial hip joint, bilateral ==

== ENCOUNTER → 2024-08-15 | Outpatient (CLI) | payer OTHER | END | disposition home or self-care (01) | LOC: WOUNDCARE 04:20 | PROVIDERS: ATTEND Nurse Practitioner Family | DX: M86.652 Other chronic osteomyelitis, left thigh (principal); E11.69 Type 2 diabetes mellitus with other specified complication; L89.324 Pressure ulcer of left buttock, stage 4; L89.153 Pressure ulcer of sacral region, stage 3; E11.51 Type 2 diabetes mellitus with diabetic peripheral angiopathy without gangrene; E11.40 Type 2 diabetes mellitus with diabetic neuropathy, unspecified; I10 Essential (primary) hypertension; E78.5 Hyperlipidemia, unspecified; K21.9 Gastro-esophageal reflux disease without esophagitis; G25.81 Restless legs syndrome; F17.210 Nicotine dependence, cigarettes, uncomplicated; F32.A Depression, unspecified; F41.9 Anxiety disorder, unspecified; Z96.643 Presence of artificial hip joint, bilateral; Z79.899 Other long term (current) drug therapy ==

== ENCOUNTER → 2024-08-18 | Outpatient (CLI) | payer OTHER | END | disposition home or self-care (01) | LOC: WOUNDCARE 02:33 | PROVIDERS: ATTEND Nurse Practitioner Family | DX: M86.652 Other chronic osteomyelitis, left thigh (principal); E11.69 Type 2 diabetes mellitus with other specified complication; L89.324 Pressure ulcer of left buttock, stage 4; L89.153 Pressure ulcer of sacral region, stage 3; E11.51 Type 2 diabetes mellitus with diabetic peripheral angiopathy without gangrene; E11.40 Type 2 diabetes mellitus with diabetic neuropathy, unspecified; I10 Essential (primary) hypertension; E78.5 Hyperlipidemia, unspecified; K21.9 Gastro-esophageal reflux disease without esophagitis; G25.81 Restless legs syndrome; F32.A Depression, unspecified; F41.9 Anxiety disorder, unspecified; F17.210 Nicotine dependence, cigarettes, uncomplicated; Z96.643 Presence of artificial hip joint, bilateral; Z79.899 Other long term (current) drug therapy ==

== ENCOUNTER → 2024-08-19 | Outpatient (CLI) | payer OTHER | END | disposition home or self-care (01) | LOC: WOUNDCARE 02:28 | PROVIDERS: ATTEND Nurse Practitioner Family | DX: M86.652 Other chronic osteomyelitis, left thigh (principal); E11.69 Type 2 diabetes mellitus with other specified complication; L89.324 Pressure ulcer of left buttock, stage 4; L89.153 Pressure ulcer of sacral region, stage 3; E11.51 Type 2 diabetes mellitus with diabetic peripheral angiopathy without gangrene; E78.5 Hyperlipidemia, unspecified; I10 Essential (primary) hypertension; M48.00 Spinal stenosis, site unspecified; K21.9 Gastro-esophageal reflux disease without esophagitis; E11.40 Type 2 diabetes mellitus with diabetic neuropathy, unspecified; M85.80 Other specified disorders of bone density and structure, unspecified site; G25.81 Restless legs syndrome; F41.9 Anxiety disorder, unspecified; F32.A Depression, unspecified; F17.210 Nicotine dependence, cigarettes, uncomplicated; Z71.6 Tobacco abuse counseling ==

== ENCOUNTER → 2024-08-22 | Outpatient (CLI) | payer OTHER | END | disposition home or self-care (01) | LOC: WOUNDCARE 02:03 | PROVIDERS: ATTEND Nurse Practitioner Family | DX: E11.69 Type 2 diabetes mellitus with other specified complication (principal); L89.324 Pressure ulcer of left buttock, stage 4; L89.153 Pressure ulcer of sacral region, stage 3; E11.51 Type 2 diabetes mellitus with diabetic peripheral angiopathy without gangrene; E11.40 Type 2 diabetes mellitus with diabetic neuropathy, unspecified; I10 Essential (primary) hypertension; E78.5 Hyperlipidemia, unspecified; K21.9 Gastro-esophageal reflux disease without esophagitis; G25.81 Restless legs syndrome; F32.A Depression, unspecified; F41.9 Anxiety disorder, unspecified; F17.210 Nicotine dependence, cigarettes, uncomplicated; Z96.643 Presence of artificial hip joint, bilateral; Z79.899 Other long term (current) drug therapy ==

== ENCOUNTER → 2024-08-25 | Outpatient (CLI) | payer OTHER | END | disposition home or self-care (01) | LOC: WOUNDCARE 02:00 | PROVIDERS: ATTEND Nurse Practitioner Family | DX: M86.652 Other chronic osteomyelitis, left thigh (principal); E11.69 Type 2 diabetes mellitus with other specified complication; L89.324 Pressure ulcer of left buttock, stage 4; L89.153 Pressure ulcer of sacral region, stage 3; E11.51 Type 2 diabetes mellitus with diabetic peripheral angiopathy without gangrene; F17.210 Nicotine dependence, cigarettes, uncomplicated; Z71.6 Tobacco abuse counseling ==

== ENCOUNTER → 2024-08-26 | Outpatient (CLI) | payer OTHER | END | disposition home or self-care (01) | LOC: WOUNDCARE 00:58 | PROVIDERS: ATTEND Nurse Practitioner Family | DX: M86.652 Other chronic osteomyelitis, left thigh (principal); E11.69 Type 2 diabetes mellitus with other specified complication; L89.324 Pressure ulcer of left buttock, stage 4; L89.153 Pressure ulcer of sacral region, stage 3; E11.51 Type 2 diabetes mellitus with diabetic peripheral angiopathy without gangrene; E11.40 Type 2 diabetes mellitus with diabetic neuropathy, unspecified; I10 Essential (primary) hypertension; E78.5 Hyperlipidemia, unspecified; K21.9 Gastro-esophageal reflux disease without esophagitis; G25.81 Restless legs syndrome; F41.9 Anxiety disorder, unspecified; F32.A Depression, unspecified; F17.210 Nicotine dependence, cigarettes, uncomplicated; Z96.643 Presence of artificial hip joint, bilateral; Z79.899 Other long term (current) drug therapy ==

== ENCOUNTER → 2024-08-27 | Outpatient (CLI) | payer OTHER | END | disposition home or self-care (01) | LOC: WOUNDCARE 02:11 | PROVIDERS: ATTEND Nurse Practitioner Family | DX: M86.652 Other chronic osteomyelitis, left thigh (principal); E11.69 Type 2 diabetes mellitus with other specified complication; L89.324 Pressure ulcer of left buttock, stage 4; L89.153 Pressure ulcer of sacral region, stage 3; E11.51 Type 2 diabetes mellitus with diabetic peripheral angiopathy without gangrene; F17.210 Nicotine dependence, cigarettes, uncomplicated; Z71.6 Tobacco abuse counseling; Z96.643 Presence of artificial hip joint, bilateral ==

== ENCOUNTER → 2024-08-28 | Outpatient (CLI) | payer OTHER | END | disposition home or self-care (01) | LOC: WOUNDCARE 02:06 | PROVIDERS: ATTEND Nurse Practitioner Family | DX: M86.652 Other chronic osteomyelitis, left thigh (principal); E11.69 Type 2 diabetes mellitus with other specified complication; L89.324 Pressure ulcer of left buttock, stage 4; L89.153 Pressure ulcer of sacral region, stage 3; E11.51 Type 2 diabetes mellitus with diabetic peripheral angiopathy without gangrene; E11.40 Type 2 diabetes mellitus with diabetic neuropathy, unspecified; I10 Essential (primary) hypertension; E78.5 Hyperlipidemia, unspecified; K21.9 Gastro-esophageal reflux disease without esophagitis; G25.81 Restless legs syndrome; F32.A Depression, unspecified; F41.9 Anxiety disorder, unspecified; F17.210 Nicotine dependence, cigarettes, uncomplicated; Z96.643 Presence of artificial hip joint, bilateral; Z79.899 Other long term (current) drug therapy ==

== ENCOUNTER → 2024-08-29 | Outpatient (CLI) | payer OTHER | END | disposition home or self-care (01) | LOC: WOUNDCARE 02:24 | PROVIDERS: ATTEND Nurse Practitioner Family | DX: M86.652 Other chronic osteomyelitis, left thigh (principal); E11.69 Type 2 diabetes mellitus with other specified complication; L89.324 Pressure ulcer of left buttock, stage 4; L89.153 Pressure ulcer of sacral region, stage 3; E11.51 Type 2 diabetes mellitus with diabetic peripheral angiopathy without gangrene; E11.40 Type 2 diabetes mellitus with diabetic neuropathy, unspecified; I10 Essential (primary) hypertension; E78.5 Hyperlipidemia, unspecified; K21.9 Gastro-esophageal reflux disease without esophagitis; G25.81 Restless legs syndrome; F32.A Depression, unspecified; F41.9 Anxiety disorder, unspecified; F17.210 Nicotine dependence, cigarettes, uncomplicated; Z96.643 Presence of artificial hip joint, bilateral; Z79.899 Other long term (current) drug therapy ==

== ENCOUNTER → 2024-09-02 | Outpatient (CLI) | payer OTHER | END | disposition home or self-care (01) | LOC: WOUNDCARE 05:09 | PROVIDERS: ATTEND Nurse Practitioner Family | DX: M86.652 Other chronic osteomyelitis, left thigh (principal); E11.69 Type 2 diabetes mellitus with other specified complication; L89.324 Pressure ulcer of left buttock, stage 4; L89.153 Pressure ulcer of sacral region, stage 3; E11.51 Type 2 diabetes mellitus with diabetic peripheral angiopathy without gangrene; E78.5 Hyperlipidemia, unspecified; M48.00 Spinal stenosis, site unspecified; M19.90 Unspecified osteoarthritis, unspecified site; K21.9 Gastro-esophageal reflux disease without esophagitis; E11.40 Type 2 diabetes mellitus with diabetic neuropathy, unspecified; M85.89 Other specified disorders of bone density and structure, multiple sites; G25.81 Restless legs syndrome; I11.0 Hypertensive heart disease with heart failure; I50.9 Heart failure, unspecified; F41.9 Anxiety disorder, unspecified; F32.A Depression, unspecified; F17.210 Nicotine dependence, cigarettes, uncomplicated; F17.290 Nicotine dependence, other tobacco product, uncomplicated; Z71.6 Tobacco abuse counseling; Z96.643 Presence of artificial hip joint, bilateral ==

== ENCOUNTER → 2024-09-03 | Outpatient (CLI) | payer OTHER | END | disposition home or self-care (01) | LOC: WOUNDCARE 01:04 | PROVIDERS: ATTEND Nurse Practitioner Family | DX: M86.652 Other chronic osteomyelitis, left thigh (principal); E11.69 Type 2 diabetes mellitus with other specified complication; L89.324 Pressure ulcer of left buttock, stage 4; L89.153 Pressure ulcer of sacral region, stage 3; E11.51 Type 2 diabetes mellitus with diabetic peripheral angiopathy without gangrene; E11.40 Type 2 diabetes mellitus with diabetic neuropathy, unspecified; E78.5 Hyperlipidemia, unspecified; I10 Essential (primary) hypertension; G89.29 Other chronic pain; G25.81 Restless legs syndrome; M48.00 Spinal stenosis, site unspecified; M19.90 Unspecified osteoarthritis, unspecified site; K21.9 Gastro-esophageal reflux disease without esophagitis; M85.80 Other specified disorders of bone density and structure, unspecified site; F32.A Depression, unspecified; F41.9 Anxiety disorder, unspecified; F17.210 Nicotine dependence, cigarettes, uncomplicated; Z96.643 Presence of artificial hip joint, bilateral; Z71.6 Tobacco abuse counseling ==

== ENCOUNTER → 2024-09-04 | Outpatient (CLI) | payer OTHER | END | disposition home or self-care (01) | LOC: WOUNDCARE 01:26 | PROVIDERS: ATTEND Nurse Practitioner Family | DX: M86.652 Other chronic osteomyelitis, left thigh (principal); E11.69 Type 2 diabetes mellitus with other specified complication; L89.324 Pressure ulcer of left buttock, stage 4; L89.153 Pressure ulcer of sacral region, stage 3; E11.51 Type 2 diabetes mellitus with diabetic peripheral angiopathy without gangrene; E11.40 Type 2 diabetes mellitus with diabetic neuropathy, unspecified; I10 Essential (primary) hypertension; E78.5 Hyperlipidemia, unspecified; K21.9 Gastro-esophageal reflux disease without esophagitis; G25.81 Restless legs syndrome; F32.A Depression, unspecified; F41.9 Anxiety disorder, unspecified; F17.210 Nicotine dependence, cigarettes, uncomplicated; Z96.643 Presence of artificial hip joint, bilateral; Z79.899 Other long term (current) drug therapy ==

== ENCOUNTER → 2024-09-05 | Outpatient (CLI) | payer OTHER | END | disposition home or self-care (01) | LOC: WOUNDCARE 01:07 | PROVIDERS: ATTEND Nurse Practitioner Family | DX: M86.652 Other chronic osteomyelitis, left thigh (principal); E11.69 Type 2 diabetes mellitus with other specified complication; L89.324 Pressure ulcer of left buttock, stage 4; L89.153 Pressure ulcer of sacral region, stage 3; E11.51 Type 2 diabetes mellitus with diabetic peripheral angiopathy without gangrene; E11.40 Type 2 diabetes mellitus with diabetic neuropathy, unspecified; I10 Essential (primary) hypertension; E78.5 Hyperlipidemia, unspecified; K21.9 Gastro-esophageal reflux disease without esophagitis; G25.81 Restless legs syndrome; F32.A Depression, unspecified; F41.9 Anxiety disorder, unspecified; F17.210 Nicotine dependence, cigarettes, uncomplicated; Z96.643 Presence of artificial hip joint, bilateral; Z79.899 Other long term (current) drug therapy ==

== ENCOUNTER → 2024-09-08 | Outpatient (CLI) | payer OTHER | END | disposition home or self-care (01) | LOC: WOUNDCARE 08:09 | PROVIDERS: ATTEND Nurse Practitioner Family | DX: M86.652 Other chronic osteomyelitis, left thigh (principal); E11.69 Type 2 diabetes mellitus with other specified complication; L89.324 Pressure ulcer of left buttock, stage 4; L89.153 Pressure ulcer of sacral region, stage 3; E11.51 Type 2 diabetes mellitus with diabetic peripheral angiopathy without gangrene; E11.40 Type 2 diabetes mellitus with diabetic neuropathy, unspecified; I10 Essential (primary) hypertension; E78.5 Hyperlipidemia, unspecified; K21.9 Gastro-esophageal reflux disease without esophagitis; G25.81 Restless legs syndrome; F32.A Depression, unspecified; F41.9 Anxiety disorder, unspecified; F17.210 Nicotine dependence, cigarettes, uncomplicated; Z96.643 Presence of artificial hip joint, bilateral; Z79.899 Other long term (current) drug therapy ==

== ENCOUNTER → 2024-09-09 | Outpatient (CLI) | payer OTHER | END | disposition home or self-care (01) | LOC: WOUNDCARE 01:00 | PROVIDERS: ATTEND Nurse Practitioner Family | DX: M86.652 Other chronic osteomyelitis, left thigh (principal); E11.69 Type 2 diabetes mellitus with other specified complication; L89.324 Pressure ulcer of left buttock, stage 4; L89.153 Pressure ulcer of sacral region, stage 3; E11.51 Type 2 diabetes mellitus with diabetic peripheral angiopathy without gangrene; E11.40 Type 2 diabetes mellitus with diabetic neuropathy, unspecified; I10 Essential (primary) hypertension; E78.5 Hyperlipidemia, unspecified; K21.9 Gastro-esophageal reflux disease without esophagitis; G25.81 Restless legs syndrome; F32.A Depression, unspecified; F41.9 Anxiety disorder, unspecified; F17.210 Nicotine dependence, cigarettes, uncomplicated; Z96.643 Presence of artificial hip joint, bilateral; Z79.899 Other long term (current) drug therapy ==

== ENCOUNTER → 2024-09-10 | Outpatient (CLI) | payer OTHER | END | disposition home or self-care (01) | LOC: WOUNDCARE 01:52 | PROVIDERS: ATTEND Nurse Practitioner Family | DX: M86.652 Other chronic osteomyelitis, left thigh (principal); E11.69 Type 2 diabetes mellitus with other specified complication; L89.324 Pressure ulcer of left buttock, stage 4; L89.153 Pressure ulcer of sacral region, stage 3; E11.51 Type 2 diabetes mellitus with diabetic peripheral angiopathy without gangrene; E11.40 Type 2 diabetes mellitus with diabetic neuropathy, unspecified; I10 Essential (primary) hypertension; E78.5 Hyperlipidemia, unspecified; K21.9 Gastro-esophageal reflux disease without esophagitis; G25.81 Restless legs syndrome; F32.A Depression, unspecified; F41.9 Anxiety disorder, unspecified; F17.210 Nicotine dependence, cigarettes, uncomplicated; Z96.643 Presence of artificial hip joint, bilateral; Z79.899 Other long term (current) drug therapy ==

== ENCOUNTER → 2024-09-11 | Outpatient (CLI) | payer OTHER | END | disposition home or self-care (01) | LOC: WOUNDCARE 02:08 | PROVIDERS: ATTEND Nurse Practitioner Family | DX: M86.652 Other chronic osteomyelitis, left thigh (principal); E11.69 Type 2 diabetes mellitus with other specified complication; L89.324 Pressure ulcer of left buttock, stage 4; L89.153 Pressure ulcer of sacral region, stage 3; E11.51 Type 2 diabetes mellitus with diabetic peripheral angiopathy without gangrene; E11.40 Type 2 diabetes mellitus with diabetic neuropathy, unspecified; I10 Essential (primary) hypertension; E78.5 Hyperlipidemia, unspecified; K21.9 Gastro-esophageal reflux disease without esophagitis; G25.81 Restless legs syndrome; F32.A Depression, unspecified; F41.9 Anxiety disorder, unspecified; F17.210 Nicotine dependence, cigarettes, uncomplicated; Z96.643 Presence of artificial hip joint, bilateral; Z79.899 Other long term (current) drug therapy ==

== ENCOUNTER → 2024-09-15 | Outpatient (CLI) | payer OTHER | END | disposition home or self-care (01) | LOC: WOUNDCARE 09-12 02:36 | PROVIDERS: ATTEND Nurse Practitioner Family | DX: M86.652 Other chronic osteomyelitis, left thigh (principal); E11.69 Type 2 diabetes mellitus with other specified complication; L89.324 Pressure ulcer of left buttock, stage 4; L89.153 Pressure ulcer of sacral region, stage 3; E11.51 Type 2 diabetes mellitus with diabetic peripheral angiopathy without gangrene; E11.40 Type 2 diabetes mellitus with diabetic neuropathy, unspecified; I10 Essential (primary) hypertension; E78.5 Hyperlipidemia, unspecified; K21.9 Gastro-esophageal reflux disease without esophagitis; G25.81 Restless legs syndrome; F32.A Depression, unspecified; F41.9 Anxiety disorder, unspecified; F17.210 Nicotine dependence, cigarettes, uncomplicated; Z96.643 Presence of artificial hip joint, bilateral; Z79.899 Other long term (current) drug therapy ==

== ENCOUNTER → 2024-09-16 | Outpatient (CLI) | payer OTHER | END | disposition home or self-care (01) | LOC: WOUNDCARE 01:37 | PROVIDERS: ATTEND Nurse Practitioner Family | DX: M86.652 Other chronic osteomyelitis, left thigh (principal); E11.69 Type 2 diabetes mellitus with other specified complication; L89.324 Pressure ulcer of left buttock, stage 4; L89.153 Pressure ulcer of sacral region, stage 3; E11.51 Type 2 diabetes mellitus with diabetic peripheral angiopathy without gangrene; E11.40 Type 2 diabetes mellitus with diabetic neuropathy, unspecified; I10 Essential (primary) hypertension; E78.5 Hyperlipidemia, unspecified; K21.9 Gastro-esophageal reflux disease without esophagitis; G25.81 Restless legs syndrome; F32.A Depression, unspecified; F41.9 Anxiety disorder, unspecified; F17.210 Nicotine dependence, cigarettes, uncomplicated; Z96.643 Presence of artificial hip joint, bilateral; Z79.899 Other long term (current) drug therapy ==

== ENCOUNTER → 2024-09-17 | Outpatient (CLI) | payer OTHER | END | disposition home or self-care (01) | LOC: WOUNDCARE 02:54 | PROVIDERS: ATTEND Nurse Practitioner Family | DX: M86.652 Other chronic osteomyelitis, left thigh (principal); E11.69 Type 2 diabetes mellitus with other specified complication; L89.324 Pressure ulcer of left buttock, stage 4; L89.153 Pressure ulcer of sacral region, stage 3; E11.51 Type 2 diabetes mellitus with diabetic peripheral angiopathy without gangrene; E11.40 Type 2 diabetes mellitus with diabetic neuropathy, unspecified; E78.5 Hyperlipidemia, unspecified; I10 Essential (primary) hypertension; K21.9 Gastro-esophageal reflux disease without esophagitis; G89.29 Other chronic pain; G25.81 Restless legs syndrome; M85.80 Other specified disorders of bone density and structure, unspecified site; M48.00 Spinal stenosis, site unspecified; F32.A Depression, unspecified; F41.9 Anxiety disorder, unspecified; F17.210 Nicotine dependence, cigarettes, uncomplicated; Z96.643 Presence of artificial hip joint, bilateral; Z71.6 Tobacco abuse counseling ==

== ENCOUNTER → 2024-09-18 | Outpatient (CLI) | payer OTHER | END | disposition home or self-care (01) | LOC: WOUNDCARE 01:35 | PROVIDERS: ATTEND Nurse Practitioner Family | DX: M86.652 Other chronic osteomyelitis, left thigh (principal); E11.69 Type 2 diabetes mellitus with other specified complication; L89.324 Pressure ulcer of left buttock, stage 4; L89.153 Pressure ulcer of sacral region, stage 3; L89.312 Pressure ulcer of right buttock, stage 2; E11.621 Type 2 diabetes mellitus with foot ulcer; L97.421 Non-pressure chronic ulcer of left heel and midfoot limited to breakdown of skin; S81.802D Unspecified open wound, left lower leg, subsequent encounter; E11.51 Type 2 diabetes mellitus with diabetic peripheral angiopathy without gangrene; E11.40 Type 2 diabetes mellitus with diabetic neuropathy, unspecified; E78.5 Hyperlipidemia, unspecified; I10 Essential (primary) hypertension; G89.29 Other chronic pain; G25.81 Restless legs syndrome; M48.00 Spinal stenosis, site unspecified; M85.80 Other specified disorders of bone density and structure, unspecified site; K21.9 Gastro-esophageal reflux disease without esophagitis; F32.A Depression, unspecified; F17.210 Nicotine dependence, cigarettes, uncomplicated; F41.9 Anxiety disorder, unspecified; Z71.6 Tobacco abuse counseling; Z96.643 Presence of artificial hip joint, bilateral; X58.XXXD Exposure to other specified factors, subsequent encounter ==

== ENCOUNTER → 2024-09-19 | Outpatient (CLI) | payer OTHER | END | disposition home or self-care (01) | LOC: WOUNDCARE 02:14 | PROVIDERS: ATTEND Nurse Practitioner Family | DX: M86.652 Other chronic osteomyelitis, left thigh (principal); E11.69 Type 2 diabetes mellitus with other specified complication; L89.324 Pressure ulcer of left buttock, stage 4; L89.153 Pressure ulcer of sacral region, stage 3; E11.51 Type 2 diabetes mellitus with diabetic peripheral angiopathy without gangrene; E11.40 Type 2 diabetes mellitus with diabetic neuropathy, unspecified; I10 Essential (primary) hypertension; E78.5 Hyperlipidemia, unspecified; K21.9 Gastro-esophageal reflux disease without esophagitis; G25.81 Restless legs syndrome; F32.A Depression, unspecified; F41.9 Anxiety disorder, unspecified; F17.210 Nicotine dependence, cigarettes, uncomplicated; Z96.643 Presence of artificial hip joint, bilateral; Z79.899 Other long term (current) drug therapy ==

== ENCOUNTER → 2024-09-22 | Outpatient (CLI) | payer OTHER | END | disposition home or self-care (01) | LOC: WOUNDCARE 01:45 | PROVIDERS: ATTEND Nurse Practitioner Family | DX: M86.652 Other chronic osteomyelitis, left thigh (principal); E11.69 Type 2 diabetes mellitus with other specified complication; E11.621 Type 2 diabetes mellitus with foot ulcer; L97.421 Non-pressure chronic ulcer of left heel and midfoot limited to breakdown of skin; L89.324 Pressure ulcer of left buttock, stage 4; L89.153 Pressure ulcer of sacral region, stage 3; L89.312 Pressure ulcer of right buttock, stage 2; S81.802D Unspecified open wound, left lower leg, subsequent encounter; E11.51 Type 2 diabetes mellitus with diabetic peripheral angiopathy without gangrene; E11.40 Type 2 diabetes mellitus with diabetic neuropathy, unspecified; I10 Essential (primary) hypertension; E78.5 Hyperlipidemia, unspecified; K21.9 Gastro-esophageal reflux disease without esophagitis; G25.81 Restless legs syndrome; F32.A Depression, unspecified; F41.9 Anxiety disorder, unspecified; F17.210 Nicotine dependence, cigarettes, uncomplicated; Z96.643 Presence of artificial hip joint, bilateral; Z79.899 Other long term (current) drug therapy; X58.XXXD Exposure to other specified factors, subsequent encounter ==

== ENCOUNTER → 2024-10-01 | Outpatient (CLI) | payer OTHER | END | disposition home or self-care (01) | LOC: WOUNDCARE 09-23 02:15 | PROVIDERS: ATTEND Nurse Practitioner Family | DX: M86.652 Other chronic osteomyelitis, left thigh (principal); E11.69 Type 2 diabetes mellitus with other specified complication; L89.324 Pressure ulcer of left buttock, stage 4; L89.312 Pressure ulcer of right buttock, stage 2; L89.153 Pressure ulcer of sacral region, stage 3; E11.621 Type 2 diabetes mellitus with foot ulcer; L97.411 Non-pressure chronic ulcer of right heel and midfoot limited to breakdown of skin; S91.102D Unspecified open wound of left great toe without damage to nail, subsequent encounter; S81.802D Unspecified open wound, left lower leg, subsequent encounter; E11.51 Type 2 diabetes mellitus with diabetic peripheral angiopathy without gangrene; E11.40 Type 2 diabetes mellitus with diabetic neuropathy, unspecified; I10 Essential (primary) hypertension; E78.5 Hyperlipidemia, unspecified; K21.9 Gastro-esophageal reflux disease without esophagitis; G25.81 Restless legs syndrome; F32.A Depression, unspecified; F41.9 Anxiety disorder, unspecified; F17.210 Nicotine dependence, cigarettes, uncomplicated; Z96.643 Presence of artificial hip joint, bilateral; Z79.899 Other long term (current) drug therapy; X58.XXXD Exposure to other specified factors, subsequent encounter ==

== ENCOUNTER → 2024-10-02 | Outpatient (CLI) | payer OTHER | END | disposition home or self-care (01) | LOC: WOUNDCARE 02:03 | PROVIDERS: ATTEND Nurse Practitioner Family | DX: M86.652 Other chronic osteomyelitis, left thigh (principal); E11.69 Type 2 diabetes mellitus with other specified complication; L89.324 Pressure ulcer of left buttock, stage 4; L89.312 Pressure ulcer of right buttock, stage 2; L89.153 Pressure ulcer of sacral region, stage 3; E11.621 Type 2 diabetes mellitus with foot ulcer; L97.411 Non-pressure chronic ulcer of right heel and midfoot limited to breakdown of skin; S91.102D Unspecified open wound of left great toe without damage to nail, subsequent encounter; S81.802D Unspecified open wound, left lower leg, subsequent encounter; E11.51 Type 2 diabetes mellitus with diabetic peripheral angiopathy without gangrene; E11.40 Type 2 diabetes mellitus with diabetic neuropathy, unspecified; I10 Essential (primary) hypertension; E78.5 Hyperlipidemia, unspecified; K21.9 Gastro-esophageal reflux disease without esophagitis; G25.81 Restless legs syndrome; F32.A Depression, unspecified; F41.9 Anxiety disorder, unspecified; F17.210 Nicotine dependence, cigarettes, uncomplicated; Z96.643 Presence of artificial hip joint, bilateral; Z79.899 Other long term (current) drug therapy; X58.XXXD Exposure to other specified factors, subsequent encounter ==